=== PATIENT | male | born 1945 | race Caucasian/White ===

== ENCOUNTER 2020-02-15 00:35 | Outpatient (CLI) | payer MEDICARE, SELFPAY ==
[2020-02-15 18:10] LABS: SARS-CoV-2 RNA PCR Negative
== END 2020-02-15 00:36 | disposition home or self-care (01) ==
LOC: ANHCOVIDDT 00:35
PROVIDERS: PCP Family Medicine; Visit Provider Podiatrist Foot & Ankle Surgery
DX: Z01.812 Encounter for preprocedural laboratory examination (principal); Z20.828 Contact with and (suspected) exposure to other viral communicable diseases
CPT/HCPCS: 87635; C9803; U0003

== ENCOUNTER 2020-02-15 10:26 | Outpatient (CLI) | payer MEDICARE, SELFPAY ==
--- NOTE | 2020-02-15 10:28 | ECG_ITS ---
Measurements Intervals [place] Rate: 64 P: 76 [place]: 170 QRS: -53 QRSD: 129 T: 46 QT: 401 QTc: 414 Interpretive Statements SINUS RHYTHM POSSIBLE LEFT ATRIAL ENLARGEMENT LEFT ANTERIOR FASCICULAR BLOCK CANNOT RULE OUT SEPTAL INFARCT, AGE INDETERMINATE BASELINE ARTIFACT- I, II, III, AVR, AVL, AVF ABNORMAL ECG Electronically Signed On 02-15-2020 11:30:43 CDT by Kyler Levy D.O.
== END 2020-02-15 10:27 | disposition home or self-care (01) ==
LOC: ANHSURGERY 10:28
PROVIDERS: PCP Family Medicine; Visit Provider Podiatrist Foot & Ankle Surgery
DX: I10 Essential (primary) hypertension (principal)
CPT/HCPCS: 87635; 93005; C9803; U0003

== ENCOUNTER 2020-02-17 02:47 | Day surgery (SDC) | payer MEDICARE, SELFPAY ==
[2020-02-14 10:01] VITALS: BMI 19.3
--- NOTE | 2020-02-16 12:19 | WPDANESEPP ---
[facility] - Eval Pre Procedure Procedure: Operation Date: 02/17/20 09:00 Proposed Procedures p Fusion First Metatarsophalangeal Joint Right Foot, Hammer Toe Repair Second and Third Digits Right Foot, Plantar Plate Repair Second Metatarsophalangeal Joint Right Foot, - Twin José JR, MD s Osteotomy Second and Third Metatarsal Right Foot - Twin José JR, MD Date/Time: 02/16/20 12:19 Pre Op Diagnosis: bunion rt foot,hammer toe rt foot,metatarsalgia Patient Data Age: 74 Gender: M Height: 1.91 m Weight: 70.31 kg Allergies Allergy/AdvReac Type Severity Reaction Status Date / Time No Known Allergies Allergy Verified 02/14/20 09:33 Home Medications Medication Instructions Recorded Confirmed Type propranolol 20 mg tablet 20 mg PO Q12H 07/08/19 02/14/20 History quetiapine 100 mg tablet 100 mg PO HS 07/08/19 02/14/20 History venlafaxine 150 mg tablet,extended 150 mg PO DAILY 07/08/19 02/14/20 History release 24 hr levothyroxine 50 mcg tablet 50 mcg PO DAILY #90 tablet 09/20/19 02/14/20 Rx atorvastatin 10 mg tablet 10 mg PO DAILY #90 tablet 11/21/19 02/14/20 Rx amantadine HCl 100 mg PO BID 02/14/20 02/14/20 History carbidopa-levodopa 1 tablet PO QID 02/14/20 02/14/20 History Patient hx anesthesia problems: none Family hx anesthesia problems: none PMFSH Past Medical History Medical History (Updated 02/16/20 @ 12:21 by Roshan Humphrey CRNA) Anemia Anxiety Arthritis Chronic neck pain Colonic polyp Epistaxis HTN (hypertension) Hyperlipidemia, unspecified Hypothyroidism, unspecified IFG (impaired fasting glucose) Parkinson's disease Rosacea Surgical History Surgical History (Updated 02/16/20 @ 12:21 by Roshan Humphrey CRNA) History of penile implant Status post hernia repair Family History Family History Father Family history of coronary artery disease Mother Family history of coronary artery disease Sibling Family history of coronary artery disease Social History Social History Smoking status: Never smoker Second hand tobacco smoke exposure: No Alcohol intake: never Substance use: never Substance use type: does not use Gender identity (if verbalized by the patient): Male Exam Day of Procedure 02/16/20 12:19
[2020-02-17] VITALS (11 sets, daily range): BP systolic 104–131; BP diastolic 61–79; PULSE 59–71; RESP 13–20; TEMP 36.3–36.6; O2SAT 100
--- NOTE | ~2020-02-17 | XR_ITS ---
EXAMINATION: XR surgery orthopedic DATE: 02/17/2020 10:46 INDICATION: Right foot surgery TECHNIQUE: Dorsal plantar and lateral fluoroscopic spot images of the right forefoot were obtained du ring procedure performed by Dr. José. Radiologist was not present for the imaging or procedure. T he amount of fluoroscopy time used during this procedure was 0.2 minutes. COMPARISON: None. FINDINGS: Osteotomies with screw fixation at the necks of the second and third metatarsals. Osteotomies and ins trumented arthrodeses at the second and third proximal interphalangeal joints. There are some surroun ding soft tissue gas suggesting recent surgery. Chronic appearing solidly fused arthrodesis at the fi rst metatarsophalangeal joint with dorsal plate and screw fixation. Alignment appears near-anatomic. No fractures identified. IMPRESSION: 1. Fluoroscopy utilized during orthopedic procedure at the right forefoot. See procedure note for fur ther detail. Reviewed, dictated and finalized at location A. IMPRESSION: 1. Fluoroscopy utilized during orthopedic procedure at the right forefoot. See procedure note for further detail.
--- NOTE | 2020-02-17 07:15 | WPDHPUPDATE1 ---
History and Physical Update Update Date/Time: 02/17/20 07:15 History and Physical has been reviewed, including an updated exam of the patient. There are NO changes in the patient's condition. Risks, benefits, and alternatives have been discussed and questions answered. Patient agrees to proceed with procedure.
[2020-02-17] MEDS: LACTATED RINGERS 1,000 ML 30 ML IV CONT ×2 (07:35→11:33)
--- NOTE | 2020-02-17 07:47 | WPDANESEPPF ---
Anes - Initial Pre Proc Eval Procedure: Operation Date: 02/17/20 09:00 Proposed Procedures p Fusion First Metatarsophalangeal Joint Right Foot, Hammer Toe Repair Second and Third Digits Right Foot, Plantar Plate Repair Second Metatarsophalangeal Joint Right Foot, - Twin José JR, MD s Osteotomy Second and Third Metatarsal Right Foot - Twin José JR, MD Date/Time: 02/17/20 07:47 Surgeon: Twin José JR, MD Pre Op Diagnosis: bunion rt foot,hammer toe rt foot,metatarsalgia Patient Data Age: 74 Gender: M Height: 1.91 m Weight: 70.31 kg Allergies Allergy/AdvReac Type Severity Reaction Status Date / Time No Known Allergies Allergy Verified 02/14/20 09:33 Home Medications Medication Instructions Recorded Confirmed Type propranolol 20 mg tablet 20 mg PO Q12H 07/08/19 02/14/20 History quetiapine 100 mg tablet 100 mg PO HS 07/08/19 02/14/20 History venlafaxine 150 mg tablet,extended 150 mg PO DAILY 07/08/19 02/14/20 History release 24 hr levothyroxine 50 mcg tablet 50 mcg PO DAILY #90 tablet 09/20/19 02/14/20 Rx atorvastatin 10 mg tablet 10 mg PO DAILY #90 tablet 11/21/19 02/14/20 Rx amantadine HCl 100 mg PO BID 02/14/20 02/14/20 History carbidopa-levodopa 1 tablet PO QID 02/14/20 02/14/20 History Patient hx anesthesia problems: none Family hx anesthesia problems: none PMFSH Past Medical History Medical History (Updated 02/16/20 @ 12:21 by Roshan Humphrey CRNA) Anemia Anxiety Arthritis Chronic neck pain Colonic polyp Epistaxis HTN (hypertension) Hyperlipidemia, unspecified Hypothyroidism, unspecified IFG (impaired fasting glucose) Parkinson's disease Rosacea Surgical History Surgical History (Updated 02/16/20 @ 12:21 by Roshan Humphrey CRNA) History of penile implant Status post hernia repair Family History Family History Father Family history of coronary artery disease Mother Family history of coronary artery disease Sibling Family history of coronary artery disease Social History Social History Smoking status: Never smoker Second hand tobacco smoke exposure: No Alcohol intake: never Substance use: never Substance use type: does not use Gender identity (if verbalized by the patient): Male Anes - Eval Final PreProcedure Day of Procedure 02/17/20 07:47 Patient weight: thin Heart: regular rate and rhythm Lungs: clear to auscultation and normal air movement Airway: Mallampati scale class II Neurological: alert and oriented Last oral intake: >/= 8 hours ASA classification: III Emergent: no Anesthetic plan: proceed Anesthesia type and monitoring: general LMA and standard monitoring Other findings: popliteal nerve block/acb for post op pain Informed Consent: The patient's anesthetic plan and its attendant risks and benefits were discussed with the patient/family/POA. Questions were solicited and answers provided to the satisfaction of the patient/family/POA.
--- NOTE | 2020-02-17 07:50 | WPDANESPNB ---
Anes - Peripheral Nerve Block Date/Time: 02/17/20 07:50 I have discussed with the patient/family/POA the placement of a peripheral nerve block for post-operative pain management, including associated risks, benefits, complications, and side effects. Alternative methods of post-operative analgesia were detailed. Questions were solicited and answers provided to the satisfaction of the patient/family/POA. Time-Out: A pre-procedural Time-Out was completed immediately before starting the procedure and confirmed: Patient Identification, Site, Procedure, Patient Position and the Availability of Requisite Equipment. Clinical Indications: Acute post-operative pain management requested by the operative surgeon. Nerve Block Insertion Note Anes-nerve block: posterior fossa sciatic right and adductor canal right Patient position: supine (for adductor canal) and other (right lateral for popliteal) Skin prep: chlorhexidine Needle: 22 gauge, stimulating, insulated echogenic needle. Needle length: 80 mm Technique: nerve stimulation lost at (mA) (for popliteal lost at 0.2) and ultrasound Injectate: bupivacaine 0.5% with epi 5 mcg/ml (20 mL for popliteal, 10 mL for adductor canal) Observations: tolerated well Complications: none Procedure start time:: 829 Procedure end time:: 836
[2020-02-17] MEDS: ceFAZolin 2 GM/D5W 50 ML 2 GM/50 ML BAG IVPB (08:39)
--- NOTE | 2020-02-17 11:15 | PM.OP ---
Procedure Note - Brief Procedure Note - Brief Date of procedure: 02/17/20 Pre-op diagnosis: bunion rt foot,hammer toe rt foot,metatarsalgia Post-op diagnosis: same Procedure performed: 1. Fusion first MPJ right foot 2. Hammertoe repair 2nd and 3rd digit right foot 3. Duy Shortening 2nd and 3rd metatarsal osteotomy right foot Anesthesia: GLMA Surgeon: Twin José JR, DPM Estimated blood loss (mL): 1 Complications: No immediate complications Condition: stable Disposition: same day
--- NOTE | 2020-02-17 12:20 | SUR.PHASEI ---
1155 dr smith at bedside to change dressing due to being to tight around rt foot/lower leg. rt toes dusky in color, cap refill >[address] smith has pt dangling rt foot off the side of stretcher to increase blood flow to foot. rt foot redressed partially by dr smith, karly hugger and warm blanket appplied to rt lower leg. [address] smith pt is in chair sitting up with legs dangling to floor, vss, no pain in rt leg. 1225 pt has good cap refill in toes now, still no feeling in rt foot/toes.
--- NOTE | 2020-02-17 12:36 | SUR.PHASEI ---
6780 updated spouse on pt condition, will call her when pt is ready for discharge
--- NOTE | 2020-02-17 12:51 | SUR.PHASEI ---
Addendum entered by Karis Easton RN 02/17/20 12:55: LESVIA [place] IS LOOSELY WRAPPED AROUND RT LEG/FOOT PER DR CONSUELO MONCADA Original Note: 1244; CARE ASSUMED OF PT. PT SITTING IN RECLINER WITH BOTH LEGS DEPENDENT PER DR CORDERO INSTRUCTIONS. RT 3RD TOE IS WELCH/PURPLE. NO MOVEMENT TO FOOT. FOOT AND TOES ARE WARM. CAP REFILL IS SLOW BUT PRESENT.
--- NOTE | 2020-02-17 13:11 | SUR.PHASEI ---
1300; DR CORDERO AT BEDSIDE. PT REMAINS IN RECLINER WITH BILAT LEGS DEPENDENT. LESVIA HUGGER ON AROUND RT FOOT/LEG. CAP REFILL SLOW BUT PRESENT. RT 3RD TOE REMAINS DUSKY/PURPLE. DR CORDERO STATES PT MAY GO HOME. NO ICE AND NO ELEVATION.
--- NOTE | 2020-02-17 16:43 | OP_ITS ---
DATE OF PROCEDURE: 02/17/2020 PREOPERATIVE DIAGNOSES: 1. Recurrent hallux valgus deformity, right foot. 2. Metatarsalgia, sub 2nd and 3rd metatarsophalangeal joints, right foot with pre-ulcerative lesions. 3. Painful hammertoe deformity, 2nd and 3rd digits, right foot. 4. Predislocation syndrome, 2nd metatarsophalangeal joint, right foot. POSTOPERATIVE DIAGNOSES: 1. Recurrent hallux valgus deformity, right foot. 2. Metatarsalgia sub 2nd and 3rd metatarsophalangeal joints, right foot with pre-ulcerative lesions. 3. Painful hammertoe deformity, 2nd and 3rd digits, right foot. 4. Predislocation syndrome, 2nd metatarsophalangeal joint, right foot. PROCEDURE: 1. Fusion of the 1st metatarsophalangeal joint of the right foot. 2. Hammertoe repairs, 2nd and 3rd digits, right foot with arthrodesis of the proximal interphalangeal joint of the affected digits. 3. Duy shortening, 2nd and 3rd metatarsal osteotomies, right foot. PATHOLOGY: None. ANESTHESIA: General with a popliteal fossa block. HEMOSTASIS: Pneumatic ankle tourniquet at 250 mmHg. ESTIMATED BLOOD LOSS: Minimal. MATERIALS USED: 1. [employer] 1st metatarsophalangeal joint Crosscheck plate. 2. Three 3.0 mm Arthrex partially-threaded cannulated screws. 3. [employer] Phalinx hammertoe implants, medium and small sizes used, 3-0 PDS, 3-0 Vicryl, 4-0 Vicryl, 4-0 Monocryl, and 4-0 Prolene. INJECTABLES: None. COMPLICATIONS: Third digit of the right foot had postoperative pallor followed by duskiness. PROCEDURE IN DETAIL: Under mild sedation, the patient was brought into the operating room, placed on the operating room table in the supine position. A pneumatic ankle tourniquet was placed about the patient's right foot. Following general anesthesia and a previous popliteal fossa block, the right foot was then scrubbed, prepped, and draped in the usual aseptic manner. An Esmarch bandage was then used to examine the patient's right foot and the pneumatic ankle tourniquet was inflated. Surgery began in the following manner. Attention was directed to the dorsum of the 1st metatarsophalangeal joint at the roof of the right foot. Incision was made overlying an old cicatrix present. The incision was continued deep down through the subcutaneous tissues using sharp and blunt dissection. All bleeders were ligated and cauterized as necessary. There was significant fibrosis across the entire 1st metatarsophalangeal joint with the rigid hallux valgus deformity present. A lateral release was performed by dissecting down laterally over the 1st metatarsophalangeal joint. The tendon of the adductor hallucis was released utilizing a blunt tenotomy scissor. Furthermore, the lateral capsule was also transected in order to provide laxity to the lateral aspect of the 1st metatarsophalangeal joint. At this point, a periosteal incision was made over the base of the proximal phalanx and 1st metatarsal. The periosteum and capsular structures were then freed of their osseous attachments thus exposing the base of the proximal phalanx and the head of the 1st metatarsal. There was significant contracture present to the joint. The decision was to make 2 flat cuts to decompress the joint resecting a small portion of the base of the proximal phalanx as well as the distal aspect of the head of the 1st metatarsal. The osteotomies were created in order to slightly plantar flex the hallux in order to be adequately purchasing around. Once the flat cuts were made, there was excellent apposition of the base of the proximal phalanx against the resected head of the 1st metatarsal. Rectus alignment of the digit was noted in all planes. Temporary fixation was maintained with a 0.062 inch K-wire. A 2.0 mm drill bit was used to fenestrate the b
== END 2020-02-17 14:20 | disposition home or self-care (01) ==
PROVIDERS: PCP Family Medicine; Visit Provider Podiatrist Foot & Ankle Surgery
PROC: (CPT 28750; principal; 2020-02-17 09:00)
PROC: (CPT 28750; 2020-02-17 09:00)
DX: M20.11 Hallux valgus (acquired), right foot (principal); M77.41 Metatarsalgia, right foot; M20.41 Other hammer toe(s) (acquired), right foot; M24.474 Recurrent dislocation, right foot; G89.18 Other acute postprocedural pain; I10 Essential (primary) hypertension; E78.5 Hyperlipidemia, unspecified; G20 Parkinson's disease; D64.9 Anemia, unspecified; E03.9 Hypothyroidism, unspecified
CPT/HCPCS: 28750; 28285 ×2; 28308 ×2; 64447; 64445; A9270; C1713; J0690; J2250; J2370; J2405; J2704; J3010; J7120

== ENCOUNTER 2020-03-06 11:41 | Inpatient (IN) | payer MEDICARE, SELFPAY ==
--- NOTE | ~2020-03-06 | XR_ITS ---
EXAMINATION: XR foot RT 2V DATE: 03/06/2020 14:17 INDICATION: Right foot cellulitis. Postop. TECHNIQUE: 2 views of right foot were obtained. COMPARISON: Right foot fluoroscopy 02/17/2020 FINDINGS: Bone alignment is normal. No acute fracture. There are changes of healed arthrodesis proced ure of first metatarsophalangeal joint with dorsal plate and screws. There is screw fixation of the n ecks of the second and third metatarsals. There is resection of the head of the second proximal phala nx. There are changes of arthrodesis procedures of the second and third proximal interphalangeal join ts with screws. The screw has partially pulled out of the second proximal phalanx. Again seen is wide lopez of second metatarsophalangeal joint. There are enthesophytes at the posterior plantar aspects of calcaneal tuberosity. IMPRESSION: 1. Arthrodesis procedure of second proximal interphalangeal joint with interval change in the screw p osition in second proximal phalanx, consistent with loosening. 2. Arthrodesis procedures of first metatarsophalangeal joint and third proximal interphalangeal joint . Reviewed, dictated and finalized at location A. IMPRESSION: 1. Arthrodesis procedure of second proximal interphalangeal joint with interval change in the screw position in second proximal phalanx, consistent with loose lopez. 2. Arthrodesis procedures of first metatarsophalangeal joint and third proximal interphalangeal joint.
--- NOTE | ~2020-03-06 | US_ITS ---
EXAMINATION: US venous doppler [facility] DATE: 03/06/2020 14:16 INDICATION: Right lower limb erythema. TECHNIQUE: Grayscale ultrasound images without and with compression and Doppler ultrasound images of the bilateral lower extremity veins were obtained. COMPARISON: Ultrasound 11/04/2013 FINDINGS: The visualized portions of right common femoral vein, profunda (deep) femoral vein, femoral vein, pop liteal vein, peroneal veins, posterior tibial veins, and greater saphenous vein outflow are patent. The visualized portions of left common femoral vein, profunda femoral vein, femoral vein, popliteal v ein, peroneal veins, posterior tibial veins, and greater saphenous vein outflow are patent. IMPRESSION: 1. No deep venous thrombosis. Reviewed, dictated and finalized at location A.
--- NOTE | 2020-03-06 13:00 | ADMGEN ---
This patient, Yosvany Donovan, was admitted to Medical Room 261-01. Patient/family oriented to hospital policies and general routines including ID bracelet, bed and alarms, visiting hours, pain management, procedures, bathroom and other care routines, personal items, smoking policy, room service/diet, and visiting hours. Valuables list has been completed. Information on how to activate the Rapid Response Team has been discussed. Patient/Family are encouraged to report perceived risks to care and to ask questions if they do not understand what they are told or what they should do.
--- NOTE | 2020-03-06 13:10 | PM.IMHP ---
H&P: HPI History of Present Illness Chief complaint: Cellulitis Rt Foot Narrative: Yosvany Donovan is a 75 year old male who was a direct admit from Dr. Monk office for infection to the right foot. The patient did have a dressing on the right foot and took off the dressing. The patient stated that he had his sutures removed today. The patient stated that he has been on 2 different antibiotics for approximately 1 week and he believes 1 antibiotic was doxycycline. 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 The patient had a procedure on 02/17/2020 he had fusion of the 1st metatarsophalangeal joint of the right foot. Hammertoe repair 2nd and 3rd digits right foot with arthrodesis of the proximal interphalangeal joints of the affected digits. Well shortening 2nd and 3rd metatarsals osteomies right foot. The patient denies any fever or chills. He has a edema to his right lower extremity with redness around an area the mid white that is a quarter-sized area and looks like it scab. The patient has redness medial and laterally up the right leg care home and cover so whole right foot. Patient has scabbed area on his toes. He had redness edema but has tenderness. No drainage is noted. Patient stated he has been taking his medication as directed. The patient also stated that he had a cast on the right foot and the redness had shown up around the area where the cast had been placed. Date of service is 03/06/2020 Review of Systems Review of Systems: All systems reviewed & are unremarkable except as noted in HPI and below Constitutional: Constitutional: Reports as per HPI and Reports no additional constitutional complaints Eyes: Eyes: Reports as per HPI and Reports no additional eye complaints ENT: Reports system reviewed and no additional complaints, except as documented and Reports Normal hearing present Cardiovascular: Cardiovascular: Reports no additional cardiovascular complaints Respiratory: Respiratory: Reports no additional respiratory complaints and Reports no additional respiratory complaints Gastrointestinal: Gastrointestinal: Reports as per HPI and Reports no additional gastrointestinal complaints Musculoskeletal: Musculoskeletal: Reports no additional musculoskeletal complaints Integumentary/Breasts: Skin/Breast: Reports system reviewed and no additional complaints, except as docu and Reports as per HPI Neurologic: Reports system reviewed and no additional complaints, except as documented, Reports as per HPI and Reports Normal hearing present Psychiatric: Psychiatric: Reports no additional psychiatric complaints and Reports as per HPI Endocrine: Endocrine: Reports no additional endocrine complaints Hematologic/Lymphatic: Hematologic/Lymphatic: Reports no additional hematologic/lymphatic complaints Allergic/Immunologic: Allergic/Immunologic: Reports no additional allergic/immunologic complaints [facility] Past Medical History Medical History (Updated 03/06/20 @ 13:41 by Josselyn Viramontes NP) Anemia Anxiety Arthritis Chronic neck pain Colonic polyp Depression Epistaxis Hard of hearing HTN (hypertension) Hyperlipidemia, unspecified Hypothyroidism, unspecified IFG (impaired fasting glucose) Parkinson's disease Rosacea Surgical History Surgical History (Updated 03/06/20 @ 13:29 by Josselyn Viramontes NP) Cataract extraction status With lens implants H/O foot surgery 02/17/2020 and then about 8 years ago he had surgery on that right foot History of penile implant Status post hernia repair Family History Family History Father Family history of coronary artery disease Mother Family history of coronary artery disease Sibling Family history of coronary artery disease Social History Social History (Updated 03/06/20 @ 13:33 by Josselyn Viramontes NP) Social History: 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
[2020-03-06 14:05] LABS: Basophils Absolute Auto 0.1 K/mm3 (0.0-0.1); Basophils Percent Auto 0.9 % (0.2-1.2); Eosinophils Absolute Auto 0.6 K/mm3 (0-0.3); Eosinophils Percent Auto 9.5 % (0-4.4); Hematocrit 37.9 % (42.0-52.0); Hemoglobin 12.5 g/dL (14.0-18.0); Immature Granulocyte Absolute 0.03 K/mm3 (0.00-0.031); Immature Granulocyte Percent A 0.5 % (0-0.5); Lymphocytes Absolute Auto 1.24 K/mm3 (0.9-3.2); Lymphocytes Percent Auto 18.7 % (18.3-44.2); Mean Corpuscular Hemoglobin 31.4 pg (26-34); Mean Corpuscular Volume 95.2 fl (80-100); Mean Platelet Volume 9.3 fl (7.4-10.4); Monocytes Absolute Auto 0.8 K/mm3 (0.1-0.6); Monocytes Percent Auto 11.9 % (2.6-8.5); Neutrophils Absolute Auto 3.9 K/mm3 (1.3-6.7); Neutrophils Percent Auto 58.5 % (45.5-73.1); Platelet Count Result 305 k/mm3 (150-375); Red Blood Count 3.98 M/mm3 (4.6-6.20); Red Cell Distribution Width 12.4 % (11.5-14.5); White Blood Count 6.6 K/mm3 (4.5-10.0)
[2020-03-06 14:11] LABS: Lactic Acid Reflex 1.1 mmol/L (0.7-2.1)
[2020-03-06 14:12] LABS: Blood Urea Nitrogen 26 mg/dL (9-20); Calcium 9.4 mg/dL (8.4-10.2); Carbon Dioxide 31 mmol/L (22-30); Chloride 102 mmol/L (98-107); Estimated Glomerular Filt Rate > 60; Glucose 87 mg/dL (75-110); Potassium 4.4 mmol/L (3.4-5.0); Sodium 140 mmol/L (137-145)
[2020-03-06 14:26] VITALS: BP 103/59; PULSE 62; RESP 16; TEMP 36.6; O2SAT 100
[2020-03-06 14:27] VITALS: BMI 19.4
[2020-03-06 15:09] LABS: Free T4 Free Thyroxine 0.92 ng/mL (0.78-2.19)
[2020-03-06 18:00] VITALS: BP 112/51; PULSE 70; RESP 18; TEMP 36.9; O2SAT 100
[2020-03-06 20:00] VITALS: BP 120/57; PULSE 70; RESP 20; TEMP 36.8; O2SAT 99
[2020-03-06 20:58] VITALS: PULSE 66
[2020-03-06] MEDS: PROPRANOLOL HCL 20 MG TABLET PO (20:58)
[2020-03-06] MEDS: amantadine HCL 100 MG CAPSULE PO (20:58)
[2020-03-06] MEDS: CARBIDOPA/LEVODOPA 25/100 MG CR TABLET 1 TABLET PO ×2 (20:58→23:57)
[2020-03-06] MEDS: QUEtiapine FUMARATE 100 MG TABLET PO (20:58)
[2020-03-06 21:41] LABS: Add Urine Microscopic? NO; Appearance Urine Clear (Clear); Bilirubin Urine Negative (Negative); Blood Urine Negative (Negative); Color Urine Yellow (Yellow); Glucose Urine UA Negative (Negative); Ketones Urine Negative (Negative); Leukocyte Esterase Ur Negative LEU/UL (Negative); Nitrate Urine Negative (Negative); Protein Urine Negative (Negative); Urobilinogen Urine Negative mg/dL (<2.0)
[2020-03-07] VITALS (8 sets, daily range): BP systolic 104–119; BP diastolic 59–75; PULSE 60–75; RESP 16–18; TEMP 36.6–37.1; O2SAT 92–100
[2020-03-07] MEDS: CARBIDOPA/LEVODOPA 25/100 MG CR TABLET 1 TABLET PO ×7 (03:02→19:54)
[2020-03-07 05:42] LABS: Basophils Absolute Auto 0.1 K/mm3 (0.0-0.1); Basophils Percent Auto 1.2 % (0.2-1.2); Eosinophils Absolute Auto 0.6 K/mm3 (0-0.3); Eosinophils Percent Auto 9.7 % (0-4.4); Hemoglobin 11.5 g/dL (14.0-18.0); Immature Granulocyte Absolute 0.02 K/mm3 (0.00-0.031); Immature Granulocyte Percent A 0.3 % (0-0.5); Lymphocytes Absolute Auto 1.32 K/mm3 (0.9-3.2); Lymphocytes Percent Auto 22.8 % (18.3-44.2); Mean Corpuscular HGB Conc 32.9 g/dl (32-36); Mean Corpuscular Hemoglobin 30.9 pg (26-34); Mean Corpuscular Volume 94.1 fl (80-100); Mean Platelet Volume 9.1 fl (7.4-10.4); Monocytes Absolute Auto 0.8 K/mm3 (0.1-0.6); Platelet Count Result 272 k/mm3 (150-375); Red Blood Count 3.72 M/mm3 (4.6-6.20); Red Cell Distribution Width 12.2 % (11.5-14.5); White Blood Count 5.8 K/mm3 (4.5-10.0)
[2020-03-07 05:57] LABS: Lactic Acid 1.1 mmol/L (0.7-2.1)
[2020-03-07 05:58] LABS: Alanine Aminotransferase 6 U/L (4-50); Albumin Level 3.8 g/dL (3.5-5.1); Alkaline Phosphatase 93 U/L (38-126); Aspartate Amino Transferase 24 U/L (17-59); Bilirubin,Total 0.3 mg/dL (0.2-1.3); Blood Urea Nitrogen 21 mg/dL (9-20); CRP 0.8 mg/dL (<1.0); Carbon Dioxide 32 mmol/L (22-30); Chloride 102 mmol/L (98-107); Estimated CRCL calculation 62 ml/min; Estimated Glomerular Filt Rate > 60; Glucose 93 mg/dL (75-110); Magnesium 2.1 mg/dL (1.6-2.3); Potassium 4.4 mmol/L (3.4-5.0); Sodium 138 mmol/L (137-145)
[2020-03-07] MEDS: LEVOTHYROXINE SODIUM 50 MCG TABLET PO (06:04)
[2020-03-07 07:48] LABS: Free T4 Free Thyroxine Reflex 0.89 ng/dL (0.78-2.19)
[2020-03-07] MEDS: ENOXAPARIN 40 MG/0.4 ML SYRINGE SUB-Q (08:24)
[2020-03-07] MEDS: amantadine HCL 100 MG CAPSULE PO ×2 (08:24→19:55)
[2020-03-07] MEDS: VENLAFAXINE HCL XR 75 MG CAP.ER.24H 150 MG PO (08:24)
[2020-03-07] MEDS: ATORVASTATIN 10 MG TABLET PO (08:24)
[2020-03-07] MEDS: PROPRANOLOL HCL 20 MG TABLET PO ×2 (08:24→19:54)
[2020-03-07 09:10] LABS: Total Triiodothyronine (T3) 1.04 NG/ML (0.97-1.69)
--- NOTE | 2020-03-07 09:24 | PM.IMHP ---
H&P: HPI History of Present Illness Chief complaint: Cellulitis Rt Foot Narrative: Yosvany Donovan is a 75 year old male with Parkinson's he had a recent forefoot reconstruction, he was 3 weeks into his 4 week cast immobilization recovery when he called the office because of pain and swelling to the right foot. I removed the cast and noticed that the patient accidentally wet the cast which led to maceration and subsequent infection of the macerated incision sites. No F/C/N/V, no SOB no calf pain. He was admited for IV antibiotics. Review of Systems Constitutional: Constitutional: Reports no additional constitutional complaints [facility] Past Medical History Medical History (Updated 03/06/20 @ 13:41 by Josselyn Viramontes NP) Anemia Anxiety Arthritis Chronic neck pain Colonic polyp Depression Epistaxis Hard of hearing HTN (hypertension) Hyperlipidemia, unspecified Hypothyroidism, unspecified IFG (impaired fasting glucose) Parkinson's disease Rosacea Surgical History Surgical History (Updated 03/06/20 @ 13:29 by Josselyn Viramontes NP) Cataract extraction status With lens implants H/O foot surgery 02/17/2020 and then about 8 years ago he had surgery on that right foot History of penile implant Status post hernia repair Family History Family History Father Family history of coronary artery disease Mother Family history of coronary artery disease Sibling Family history of coronary artery disease Social History Social History (Updated 03/06/20 @ 13:33 by Josselyn Viramontes NP) Social History: 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 He lives with his Olinda who is his durable power immigration attorney for healthcare. He desires to be a full code. They have no biological children but adopted 9 foster children. They had over 30 some foster children throughout their life. Patient desires to be a full code. He does not drink or smoke or use marijuana or drugs. Smoking status: Never smoker Second hand tobacco smoke exposure: No Alcohol intake: never Substance use: never Substance use type: does not use Gender identity (if verbalized by the patient): Male Spiritual care concerns: No Meds Home Medications and Allergies Home Medications Medication Instructions Recorded Confirmed Type propranolol 20 mg tablet 20 mg PO BID 07/08/19 03/06/20 History quetiapine 100 mg tablet 100 mg PO HS 07/08/19 03/06/20 History venlafaxine 150 mg tablet,extended 150 mg PO DAILY 07/08/19 03/06/20 History release 24 hr levothyroxine 50 mcg tablet 50 mcg PO DAILY #90 tablet 09/20/19 03/06/20 Rx atorvastatin 10 mg tablet 10 mg PO DAILY #90 tablet 11/21/19 03/06/20 Rx amantadine HCl 100 mg PO BID 02/14/20 03/06/20 History carbidopa-levodopa 1 tablet PO Q3H 02/14/20 03/06/20 History ciprofloxacin HCl 500 mg PO Q12H 03/06/20 03/06/20 History clindamycin HCl 300 mg PO Q8H 03/06/20 03/06/20 History Allergies Allergy/AdvReac Type Severity Reaction Status Date / Time No Known Allergies Allergy Verified 02/14/20 09:33 Vital Signs Vital Signs - 24 hr 03/06/20 14:26 03/06/20 18:00 03/06/20 20:00 Temperature 36.6 C 36.9 C 36.8 C Pulse Rate 62 70 70 Respiratory Rate 16 18 20 Blood Pressure 103/59 L 112/51 L 120/57 L Pulse Oximetry 100 100 99 03/06/20 20:58 03/07/20 00:00 03/07/20 04:00 Temperature 36.8 C 36.6 C Pulse Rate 66 75 64 Respiratory Rate 18 18 Blood Pressure 119/62 104/59 L Pulse Oximetry 100 100 03/07/20 08:24 Temperature Pulse Rate 64 Respiratory Rate Blood Pressure Pulse Oximetry Exam Extrem: Other: Partial thickness loss of skin to the incision sites overlying the 2nd and 3rd digits. Significant improvement as far as the erythema the was present and extending to the ankle, now limited to the surgical sites 2nd and 3rd digits. H&P: Results Labs Labs: Short CBC 03/06/20 03/07/20 Range/Units 13:41 05:21 WBC 6.6
--- NOTE | 2020-03-07 15:54 | PM.IMPN ---
Progress Note: A&P Assessment and Plan (1) Cellulitis of foot: Code(s): L03.119 - Cellulitis of unspecified part of limb Status: Acute Assessment and Plan: Patient recently had surgery on 02/17/[address] José Podiatry. After the patient's cast was removed there was moist her found in his boot and he has been on oral antibiotics as an outpatient. Patient's symptoms of redness, swelling, pain continued to become worse and he was sent here from Dr. José office for further evaluation and IV antibiotics. Patient reports improvement of the swelling and redness today Dr. José who believe the patient's foot in. To be much improved. Blood cultures and wound cultures are pending. Venous Doppler was negative for acute DVT. Continue IV antibiotics. Continue monitoring the patient's symptoms. input is greatly appreciated. (2) Depression: Code(s): F32.9 - Major depressive disorder, single episode, unspecified Status: Chronic Assessment and Plan: Continue with patient's Effexor (3) Rosacea: Code(s): L71.9 - Rosacea, unspecified Status: Chronic Assessment and Plan: Continue with patient's home creams (4) Anemia: Code(s): D64.9 - Anemia, unspecified Status: Acute Assessment and Plan: Patient H&H has been stable since arrival. Continue to monitor. Transfuse as needed. (5) Anxiety: Code(s): F41.9 - Anxiety disorder, unspecified Status: Chronic Assessment and Plan: Continue with Effexor and Seroquel (6) Hypothyroidism, unspecified: Code(s): E03.9 - Hypothyroidism, unspecified Status: Chronic Assessment and Plan: TSH was slightly elevated at 5.520 but free T4 and T3 was normal. This is consistent with subclinical hypothyroidism. Will have him continue on his normal levothyroxine and follow-up with primary care provider for further evaluation and recheck in 6 weeks. (7) Parkinson's disease: Code(s): G20 - Parkinson's disease Status: Chronic Assessment and Plan: Continue with carbidopa levodopa and amantadine (8) Hyperlipidemia, unspecified: Code(s): E78.5 - Hyperlipidemia, unspecified Status: Chronic Assessment and Plan: Continue with atorvastatin Time Spent With Patient Time with patient: 25 - 35 minutes Subjective Date/time seen: 03/07/20 15:54 Interval history: Date of service 03/07/2020: Patient reports feeling better today. He states his leg swelling, redness, pain has improved. He denies any fevers, chills, chest pain, shortness of breath, weakness, fatigue, nausea, vomiting, abdominal pain, constipation, diarrhea, calf pain or any other symptoms at this time. Review of Systems Review of Systems: All systems reviewed & are unremarkable except as noted in HPI and below Exam Narrative: Exam Narrative: General: 75-year-old man sitting up in bed reading a book. Appears comfortable. In no acute distress. Skin: No jaundice or cyanosis. Good skin turgor. Neck: Full range of motion. Supple. Respiratory: Lungs are clear to auscultation bilaterally. No wheezing, rales or rhonchi. No bony chest wall tenderness. Cardiovascular: The heart has a regular rate and rhythm without murmur. Lower extremities: Left distal lower extremity has Hi wrap in place around left ankle and foot. Unable to examine his left foot and ankle secondary to bandage. He does have good capillary refill noted to all 5 toes. Sensation is intact to his toes. Trace distal right lower extremity ed
[2020-03-07] MEDS: QUEtiapine FUMARATE 100 MG TABLET PO (19:55)
[2020-03-08] MEDS: CARBIDOPA/LEVODOPA 25/100 MG CR TABLET 1 TABLET PO ×5 (00:43→12:20)
[2020-03-08 02:00] VITALS: BP 102/66; PULSE 65; RESP 16; TEMP 36.7; O2SAT 100
[2020-03-08 05:51] VITALS: BP 109/67; PULSE 67; RESP 16; TEMP 36.4; O2SAT 99
[2020-03-08 06:05] LABS: Hematocrit 37.1 % (42.0-52.0); Hemoglobin 12.3 g/dL (14.0-18.0); Mean Corpuscular HGB Conc 33.2 g/dl (32-36); Mean Corpuscular Hemoglobin 31.5 pg (26-34); Mean Corpuscular Volume 95.1 fl (80-100); Mean Platelet Volume 9.4 fl (7.4-10.4); Platelet Count Result 276 k/mm3 (150-375); Red Cell Distribution Width 12.3 % (11.5-14.5); White Blood Count 5.4 K/mm3 (4.5-10.0)
[2020-03-08] MEDS: LEVOTHYROXINE SODIUM 50 MCG TABLET PO (06:09)
[2020-03-08 06:21] LABS: Blood Urea Nitrogen 23 mg/dL (9-20); Calcium 9.4 mg/dL (8.4-10.2); Carbon Dioxide 33 mmol/L (22-30); Chloride 101 mmol/L (98-107); Estimated CRCL calculation 62 ml/min; Estimated Glomerular Filt Rate > 60; Glucose 92 mg/dL (75-110); Potassium 4.6 mmol/L (3.4-5.0); Sodium 138 mmol/L (137-145)
[2020-03-08] MEDS: ENOXAPARIN 40 MG/0.4 ML SYRINGE SUB-Q (08:48)
[2020-03-08 08:49] VITALS: PULSE 72
[2020-03-08] MEDS: PROPRANOLOL HCL 20 MG TABLET PO (08:49)
[2020-03-08] MEDS: ATORVASTATIN 10 MG TABLET PO (08:49)
[2020-03-08] MEDS: VENLAFAXINE HCL XR 75 MG CAP.ER.24H 150 MG PO (08:49)
[2020-03-08] MEDS: amantadine HCL 100 MG CAPSULE PO (08:49)
--- NOTE | 2020-03-08 09:17 | WPDPN ---
Progress Note: A&P Additional Plan Cellulitis right foot has fully resolved. Stable for discharge. Follow up in my office Thursday March 12, 2020. Continue with daily application of Betadine, adaptic and gauze roll and Hi Wrap. Use surgical shoe for ambulation with walker. Has prescription at home for Clindamycin and Cipro to be taken until finished. Thanks for hospitalist help with case, Dr. José Exam Extrem: Ankle/foot/toe images: 1. Superficial dehiscence noted to the dorsum of the forefoot, proximal to the 2nd digit 2. Superficial dehiscence noted to the dorsum of the forefoot, proximal to the 3rd digit. Other: Erythema and edema has fully resolved. Objective Data Vital Signs Vital Signs: Vital Signs - 24 hr 03/07/20 10:00 03/07/20 14:00 03/07/20 18:00 Temperature 36.8 C 36.9 C 36.8 C Pulse Rate 67 60 62 Respiratory Rate 16 16 16 Blood Pressure 105/59 L 112/67 112/62 Pulse Oximetry 100 100 96 03/07/20 19:54 03/07/20 22:00 03/08/20 02:00 Temperature 37.1 C 36.7 C Pulse Rate 60 71 65 Respiratory Rate 16 16 Blood Pressure 115/75 102/66 Pulse Oximetry 92 100 03/08/20 05:51 03/08/20 08:49 Temperature 36.4 C Pulse Rate 67 72 Respiratory Rate 16 Blood Pressure 109/67 Pulse Oximetry 99 Intake/Output Intake/Output: Intake & Output 03/05/20 03/06/20 03/07/20 03/08/20 23:59 23:59 23:59 23:59 Intake Total 440 1680 440 Output Total 200 1850 1250 Balance 240 -170 -810 Meds/Results Medications: Active Medications Generic Name Dose Route Start Last Admin Trade Name Freq PRN Reason Stop Dose Admin Hydrocodone Bitart/Acetaminophen 1 tab 03/07/20 10:23 [place] 7.5-325 Mg PO Q4H PRN Pain Rated 7-10 Hydrocodone Bitart/Acetaminophen 1 tab 03/07/20 10:23 03/07/20 10:57 [place] 5-325 Mg PO 1 tab Q4-6H PRN Administration Pain Rated 4-6 Amantadine HCl 100 mg 03/06/20 21:00 03/08/20 08:49 Symmetrel PO 100 mg Q12HR VERN Administration Atorvastatin Calcium 10 mg 03/07/20 09:00 03/08/20 08:49 Lipitor PO 10 mg DAILY VERN Administration Carbidopa/Levodopa 1 tablet 03/06/20 21:00 03/08/20 08:49 Sinemet Cr 25/100 Mg PO 1 tablet Q3HR VERN Administration Docusate Sodium 100 mg 03/07/20 15:56 Colace Capsule PO Q12H PRN Constipation Enoxaparin Sodium 40 mg 03/07/20 09:00 03/08/20 08:48 Lovenox SUB-Q 40 mg DAILY VERN Administration Cefazolin Sodium 1 gm in 50 mls @ 100 mls/hr 03/06/20 22:00 03/08/20 06:39 Ancef 1 Gm/D5w 50 Ml Pm IVPB Infused Q8H VERN Infusion Levothyroxine Sodium 50 mcg 03/07/20 06:30 03/08/20 06:09 Synthroid PO 50 mcg DAILY@0630 VERN Administration Ondansetron HCl 4 mg 03/06/20 13:06 Zofran Inj IV PUSH Q6H PRN Nausea And Vomiting Polyethylene Glycol 17 gm 03/07/20 15:56 Miralax PO QAM PRN Constipation Propranolol HCl 20 mg 03/06/20 21:00 03/08/20 08:49 Inderal PO 20 mg Q12HR VERN Administration Quetiapine Fumarate 100 mg 03/06/20 21:00 03/07/20 19:55 Seroquel PO 100 mg HS VERN Administration Venlafaxine HCl 150 mg 03/07/20 09:00 03/08/20 08:49 Effexor Xr PO 150 mg DAILY VERN Administration Radiology Results: ITS Impressions Venous Doppler Study 03/06/20 14:17 IMPRESSION: 1. No deep venous thrombosis. Foot X-Ray 03/06/20 14:18 IMPRESSION: 1. Arthrodesis procedure of second proximal interphalangeal joint with interval change in the screw position in second proximal phalanx, consistent with loosening. 2. Arthrodesis procedures of first metatarsophalangeal joint and third proximal interphalangeal joint. Labs Labs: Laboratory Results - last 24 hr 03/08/20 03/08/20 05:39 05:39 WBC 5.4 RBC 3.90 L Hgb 12.3 L Hct 37.1 L MCV 95.1 MCH 31.5 MCHC 33.2 RDW 12.3 Plt Count 276 MPV 9.4 Sodium 138 Potassium 4.6 Chloride 101 Carbon Dioxide 33 H B
[2020-03-08 10:00] VITALS: BP 99/53; PULSE 68; RESP 16; TEMP 36.7; O2SAT 99
--- NOTE | 2020-03-08 10:29 | PM.DS ---
DS: Admitting Diagnosis Admitting Diagnosis Admitting Diagnosis: Cellulitis of unspecified part of limb DS: Discharge Diagnosis Discharge Diagnosis (1) Cellulitis of foot: Code(s): L03.119 - Cellulitis of unspecified part of limb Status: Acute Assessment and Plan: Patient recently had surgery on 02/17/[address] José Podiatry. After the patient's cast was removed there was moist her found in his boot and he has been on oral antibiotics as an outpatient. Patient's symptoms of redness, swelling, pain continued to become worse and he was sent here from Dr. José office for further evaluation and IV antibiotics. Patient reports improvement of the swelling and redness with IV antibiotics. Dr. José evaluated the patient again today and feels the patient's wounds are healing very well and will discharge the patient have him follow-up with him on March 12 in the office. He would also recommend continuing the antibiotics he was on prior to admission ciprofloxacin and clindamycin until his prescription is completed. He would like the patient to Continue with daily application of Betadine, adaptic and gauze roll and Hi Wrap. Use surgical shoe for ambulation with walker. Wound culture shows no growth at this time will continue monitoring. Blood cultures showing no growth at this time will continue monitoring. Venous Doppler was negative for acute DVT. Patient is cleared to be discharged home to follow-up with Dr. José in the office. (2) Depression: Code(s): F32.9 - Major depressive disorder, single episode, unspecified Status: Chronic Assessment and Plan: Continue with patient's Effexor (3) Rosacea: Code(s): L71.9 - Rosacea, unspecified Status: Chronic Assessment and Plan: Continue with patient's home creams (4) Anemia: Code(s): D64.9 - Anemia, unspecified Status: Acute Assessment and Plan: Patient H&H has been stable since arrival. Continue to monitor. Transfuse as needed. (5) Anxiety: Code(s): F41.9 - Anxiety disorder, unspecified Status: Chronic Assessment and Plan: Continue with Effexor and Seroquel (6) Hypothyroidism, unspecified: Code(s): E03.9 - Hypothyroidism, unspecified Status: Chronic Assessment and Plan: TSH was slightly elevated at 5.520 but free T4 and T3 was normal. This is consistent with subclinical hypothyroidism. Will have him continue on his normal levothyroxine and follow-up with primary care provider for further evaluation and recheck in 6 weeks. (7) Parkinson's disease: Code(s): G20 - Parkinson's disease Status: Chronic Assessment and Plan: Continue with carbidopa levodopa and amantadine (8) Hyperlipidemia, unspecified: Code(s): E78.5 - Hyperlipidemia, unspecified Status: Chronic Assessment and Plan: Continue with atorvastatin DS: Summary Hospital Course Reason for hospitalization: Patient is a 75-year-old man with history of Parkinson's disease, who presented to the emergency department from Dr. José Podiatry office for worsening redness, swelling and pain to his right foot where he recently had surgery on 02/17/2020. The patient had a procedure on 02/17/2020 he had fusion of the 1st metatarsophalangeal joint of the right foot. Hammertoe repair 2nd and 3rd digits right foot with arthrodesis of the proximal interphalangeal joints of the affected digits. Well shortening 2nd and 3rd metatarsals osteomies right foot. The patient had been healing well but then de
--- NOTE | 2020-03-09 11:29 | PC.NURSE ---
Wound cx is negative.
--- NOTE | 2020-03-14 11:05 | PC.NURSE ---
Blood cx is negative.
== END 2020-03-08 14:20 | disposition home or self-care (01) | DRG 603 ==
PROVIDERS: Nurse Practitioner; Physician Assistant; Admitting Provider Internal Medicine; PCP Family Medicine; Visit Provider Internal Medicine
DX: L03.115 Cellulitis of right lower limb (principal); F32.9 Major depressive disorder, single episode, unspecified; E03.9 Hypothyroidism, unspecified; D64.9 Anemia, unspecified; L71.9 Rosacea, unspecified; F41.9 Anxiety disorder, unspecified; G20 Parkinson's disease; E78.5 Hyperlipidemia, unspecified
CPT/HCPCS: 36415; 73620; 80048; 80053; 81003; 83605; 83735; 84439; 84443; 84480; 85025; 85027; 86140; 87040; 87070; 87205; 93970; A9270; J0131; J0690; J1650

== ENCOUNTER 2022-02-28 01:12 | Day surgery (SDC) | payer MEDICARE, SELFPAY ==
[2022-02-21 08:30] VITALS: BMI 17.6
--- NOTE | 2022-02-27 20:26 | PM.HPGS ---
History of Present Illness History of Present Illness Consent: Risks, benefits, and alternatives have been discussed and questions answered. Patient agrees to proceed with procedure. Chief complaint: constipation, abnor.weightloss, hx of colon polyps Narrative: Yosvany Donovan is a 76 year old male referred for ccolon cancer screening. His last colonosccopy 7 years ago was negative for polyps. Review of Systems Review of Systems: All systems reviewed & are unremarkable except as noted in HPI and below PMFSH Past Medical History Medical History Anemia Anxiety Arthritis Chronic neck pain Colonic polyp Depression Epistaxis Hard of hearing HTN (hypertension) Hyperlipidemia, unspecified Hypothyroidism, unspecified IFG (impaired fasting glucose) Parkinson's disease Rosacea Surgical History Surgical History Cataract extraction status With lens implants H/O foot surgery 02/17/2020 and then about 8 years ago he had surgery on that right foot History of penile implant Status post hernia repair Family History Family History Father Family history of coronary artery disease Mother Family history of coronary artery disease Sibling Family history of coronary artery disease Social History Social History Social History: 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 He lives with his Olinda who is his durable power research attorney for healthcare. He desires to be a full code. They have no biological children but adopted 9 foster children. They had over 30 some foster children throughout their life. Patient desires to be a full code. He does not drink or smoke or use marijuana or drugs. Smoking status: Never smoker Second hand tobacco smoke exposure: No Alcohol intake: never Substance use: never Substance use type: does not use Living arrangements: with family Gender identity (if verbalized by the patient): Male Spiritual care concerns: No Meds Home Medications and Allergies Home Medications Medication Instructions Recorded Confirmed Type venlafaxine 150 mg tablet,extended 150 mg PO DAILY 07/08/19 02/21/22 History release 24 hr amantadine HCl 100 mg tablet 100 mg PO BID 02/14/20 02/21/22 History carbidopa ER 50 mg-levodopa 200 mg 1 tablet PO Q3H 02/14/20 02/28/22 History tablet,extended release Saccharomyces boulardii 250 mg 250 mg PO BID 14 days #28 caps 03/08/20 02/21/22 Rx capsule (Florastor) cholecalciferol (vitamin D3) 1,250 1,250 mcg PO WEEKLY #12 caps 08/10/20 02/21/22 Rx mcg (50,000 unit) capsule quetiapine 100 mg tablet 100 mg PO HS #90 tabs 08/29/20 02/21/22 Rx atorvastatin 10 mg tablet 10 mg PO DAILY #90 tabs 11/22/20 02/21/22 Rx levothyroxine 50 mcg tablet 50 mcg PO DAILY #90 tabs 01/17/22 02/28/22 Rx (Synthroid) sodium sul 1.479 gram-potas ch See Rx Instructions PO PER PKG DIR 02/19/22 02/21/22 Rx 0.188 gram-magnes sul 0.225 gram #24 tabs tablet (Sutab) propranolol 20 mg tablet 20 tablet PO DAILY 02/24/22 02/24/22 History terbinafine HCl 250 mg tablet 250 mg PO DAILY 02/24/22 02/24/22 History Allergies Allergy/AdvReac Type Severity Reaction Status Date / Time No Known Allergies Allergy Verified 02/28/22 06:25 Exam Resp: Auscultation: clear to auscultation bilaterally Cardio: Rate: regular rate Rhythm: regular rhythm GI: GI Palp: Yes Soft to palpation and No Tenderness to palpation present (GI) Assessment and Plan Assessment and plan (1) Colon cancer screening: Code(s): Z12.11 - Encounter for screening for malignant neoplasm of colon Status: Acute
[2022-02-28 06:28] VITALS: BP 141/76; PULSE 79; RESP 20; TEMP 36.2; O2SAT 95
[2022-02-28] MEDS: LACTATED RINGERS 1,000 ML 150 ML IV CONT (06:39)
--- NOTE | 2022-02-28 07:31 | WPDANESEPPF ---
Anes - Initial Pre Proc Eval Procedure: Operation Date: 02/28/22 07:30 Proposed Procedures p Colonoscopy - Ricky Carmen MD Date/Time: 02/28/22 07:31 Surgeon: Ricky Carmen MD Pre Op Diagnosis: constipation, abnor.weightloss, hx of colon polyps Patient Data Age: 76 Gender: M Height: 1.91 m Weight: 60.1 kg Last Vital Signs Temp 97.2 F L 02/28/22 06:28 Pulse 79 02/28/22 06:28 Resp 20 02/28/22 06:28 BP 141/76 H 02/28/22 06:28 Pulse Ox 95 02/28/22 06:28 O2 Del Method Room Air 02/28/22 06:28 Allergies Allergy/AdvReac Type Severity Reaction Status Date / Time No Known Allergies Allergy Verified 02/28/22 06:25 Home Medications Medication Instructions Recorded Confirmed Type venlafaxine 150 mg tablet,extended 150 mg PO DAILY 07/08/19 02/21/22 History release 24 hr amantadine HCl 100 mg tablet 100 mg PO BID 02/14/20 02/21/22 History carbidopa ER 50 mg-levodopa 200 mg 1 tablet PO Q3H 02/14/20 02/28/22 History tablet,extended release Saccharomyces boulardii 250 mg 250 mg PO BID 14 days #28 caps 03/08/20 02/21/22 Rx capsule (Florastor) cholecalciferol (vitamin D3) 1,250 1,250 mcg PO WEEKLY #12 caps 08/10/20 02/21/22 Rx mcg (50,000 unit) capsule quetiapine 100 mg tablet 100 mg PO HS #90 tabs 08/29/20 02/21/22 Rx atorvastatin 10 mg tablet 10 mg PO DAILY #90 tabs 11/22/20 02/21/22 Rx levothyroxine 50 mcg tablet 50 mcg PO DAILY #90 tabs 01/17/22 02/28/22 Rx (Synthroid) sodium sul 1.479 gram-potas ch See Rx Instructions PO PER PKG DIR 02/19/22 02/21/22 Rx 0.188 gram-magnes sul 0.225 gram #24 tabs tablet (Sutab) propranolol 20 mg tablet 20 tablet PO DAILY 02/24/22 02/24/22 History terbinafine HCl 250 mg tablet 250 mg PO DAILY 02/24/22 02/24/22 History Patient hx anesthesia problems: none Family hx anesthesia problems: none Results Review: All pre-operative results and documents have been reviewed as part of the pre-operative evaluation. [facility] Past Medical History Medical History Anemia Anxiety Arthritis Chronic neck pain Colonic polyp Depression Epistaxis Hard of hearing HTN (hypertension) Hyperlipidemia, unspecified Hypothyroidism, unspecified IFG (impaired fasting glucose) Parkinson's disease Rosacea Surgical History Surgical History Cataract extraction status With lens implants H/O foot surgery 02/17/2020 and then about 8 years ago he had surgery on that right foot History of penile implant Status post hernia repair Family History Family History Father Family history of coronary artery disease Mother Family history of coronary artery disease Sibling Family history of coronary artery disease Social History Social History Social History: 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 He lives with his Olinda who is his durable power drafter mechanical for healthcare. He desires to be a full code. They have no biological children but adopted 9 foster children. They had over 30 some foster children throughout their life. Patient desires to be a full code. He does not drink or smoke or use marijuana or drugs. Smoking status: Never smoker Second hand tobacco smoke exposure: No Alcohol intake: never Substance use: never Substance use type: does not use Living arrangements: with family Gender identity (if verbalized by the patient): Male Spiritual care concerns: No Anes - Eval Final PreProcedure Day of Procedure 02/28/22 07:31 Patient weight: normal Heart: regular rate and rhythm Lungs: clear to auscultation Airway: Mallampati scale class III Neurological: alert and oriented Last oral intake: >/= 8 hours ASA classification: III Emergent: no Anesthetic plan: proceed Anesthesia type and monitoring: general GIVS an
[2022-02-28 07:53] VITALS: BP 93/54; PULSE 62; RESP 20; O2SAT 100
[2022-02-28 08:03] VITALS: BP 117/71; PULSE 56; RESP 20; O2SAT 100
[2022-02-28 08:13] VITALS: BP 132/76; PULSE 55; RESP 20; O2SAT 100
== END 2022-02-28 08:29 | disposition home or self-care (01) ==
PROVIDERS: PCP Family Medicine; Visit Provider Internal Medicine Gastroenterology
PROC: 0DJD8ZZ Inspection of Lower Intestinal Tract, Via Natural or Artificial Opening Endoscopic (ICD-10-PCS; CPT 45378; principal; 2022-02-28 07:30)
DX: Z12.11 Encounter for screening for malignant neoplasm of colon (principal); D12.2 Benign neoplasm of ascending colon; K57.30 Diverticulosis of large intestine without perforation or abscess without bleeding; K59.00 Constipation, unspecified; R63.4 Abnormal weight loss; E03.9 Hypothyroidism, unspecified; D64.9 Anemia, unspecified; F41.9 Anxiety disorder, unspecified; M19.90 Unspecified osteoarthritis, unspecified site; F32.A Depression, unspecified; I10 Essential (primary) hypertension; E78.5 Hyperlipidemia, unspecified; G20 Parkinson's disease; R73.01 Impaired fasting glucose; L71.9 Rosacea, unspecified
CPT/HCPCS: 45385; 88305; J2704; J7120

== ENCOUNTER 2022-10-02 11:07 | Outpatient (CLI) | payer MEDICARE, SELFPAY ==
--- NOTE | ~2022-10-02 | CT_ITS ---
EXAMINATION: CT sinus wo con DATE: 10/02/2022 11:43 INDICATION: Odontogenic acute on chronic sinusitis. TECHNIQUE: Computed tomography (CT) of the paranasal sinuses was performed without intravenous contra st. Iterative reconstruction technique was employed. The dose-length product was 291.45 mGy-cm. COMPARISON: None FINDINGS: There is complete opacification of the frontal sinuses and many of the anterior ethmoid sin uses. There is mucosal thickening in the posterior ethmoid sinuses. There is mild mucosal thickening in the sphenoid sinuses. There is complete opacification of right maxillary sinus and near complete o pacification of left maxillary sinus. There is rightward deviation of the nasal septum. The ostiomeat al units are totally occluded. There is thickening and sclerosis of the yancey of the maxillary sinuse s. There is extensive dental disease. IMPRESSION: 1. Chronic sinusitis. Reviewed, dictated and finalized at location A. [facility] [employer] [facility] IMPRESSION: 1. Chronic sinusitis.
== END 2022-10-02 11:08 | disposition home or self-care (01) ==
PROVIDERS: PCP Family Medicine; Visit Provider Otolaryngology
DX: J32.9 Chronic sinusitis, unspecified (principal)
CPT/HCPCS: 70486

== ENCOUNTER 2022-11-04 11:08 | Outpatient (CLI) | payer MEDICARE, SELFPAY | END 2022-11-04 11:09 | disposition home or self-care (01) | LOC: ANHAUDIO 11:09 | PROVIDERS: PCP Family Medicine; Visit Provider Otolaryngology | DX: H91.93 Unspecified hearing loss, bilateral (principal) | CPT/HCPCS: 92557; 92567 ==

== ENCOUNTER 2022-11-18 12:38 | Outpatient (CLI) | payer MEDICARE, SELFPAY ==
--- NOTE | 2022-11-18 12:48 | ECG_ITS ---
Measurements Intervals [place] Rate: 61 P: 79 [place]: 168 QRS: -55 QRSD: 166 T: 40 QT: 451 QTc: 454 Interpretive Statements SINUS RHYTHM POSSIBLE LEFT ATRIAL ENLARGEMENT RIGHT BUNDLE BRANCH BLOCK LEFT ANTERIOR FASCICULAR BLOCK BASELINE ARTIFACT- I, II, III, AVR, AVL, AVF ABNORMAL ECG COMPARED TO ECG 02/15/2020 10:57:30 RIGHT BUNDLE-BRANCH BLOCK NOW PRESENT Electronically Signed On 11-18-2022 13:15:56 CDT by Kyler Levy D.O.
== END 2022-11-18 12:39 | disposition home or self-care (01) ==
LOC: ANHSURGERY 12:42
PROVIDERS: PCP Family Medicine; Visit Provider Otolaryngology
DX: Z01.818 Encounter for other preprocedural examination (principal); I10 Essential (primary) hypertension; R94.31 Abnormal electrocardiogram [ECG] [EKG]
CPT/HCPCS: 93005

== ENCOUNTER 2022-11-25 00:13 | Day surgery (SDC) | payer MEDICARE, SELFPAY ==
[2022-11-17 10:00] VITALS: BMI 17.3
--- NOTE | 2022-11-17 10:22 | PC.NURSE ---
Addendum entered by Mary Harrison RN 11/17/22 10:28: ADMEN- ADDED VENLAFAXINE TO PRE-OP MEDS TO TAKE Original Note: Report to the Outpatient Waiting Room, entrance under the green pavilion located off [facility], at time __8:30AM on date __11/25/22 . Planned Procedure Time: __10:30AM . Time changes happen often and if your time is changed the preop area will call you the afternoon before. - You and your visitor will be asked to self-screen and do not enter if you have any COVID symptoms. - Only one visitor is requested with a max of two and NO children visitors are allowed at this time. - The patient visitor may be requested to leave or wait in car when not with patient due to distancing restrictions. - A mask is optional within the hospital at this time. Patients may have clear liquids (water, carbonated beverages, clear teas, apple juice) until 3 hours prior to surgery with a maximum of 20 ounces. - No food from midnight until time of surgery. Take the following medications with a SIP of water the morning of surgery: __ AMANTADINE, BOTH [id number] & CARBIDOPA-LEVODOPA, LEVOTHYROXINE, PROPRANOLOL DO NOT STOP ANY OF YOUR OTHER PRESCRIPTION MEDICATIONS PRIOR TO SURGERY ?EXCEPT THE FOLLOWING Medications to discontinue per physician ___NONE Please no make-up, nail surinamese, hairspray, perfume, deodorant, or body powder the day of surgery. No jewelry (including any body piercings) or valuables the day of surgery, leave them at home. Please take a shower or bath the night before, or the morning of, surgery with an antibacterial soap. Wear comfortable, loose fitting clothing. Children are encouraged to wear pajamas. - Jewelry must be removed prior to entering the operating room. Rings and piercings that are not removed may be cut off. - The hospital will not accept responsibility for valuables. - Please leave all valuables, including medications, at home the day of surgery. If you are going home after surgery, a licensed cart driver must drive you home. - NO public transportation without another adult if you receive anesthesia. - We recommend that an adult stay with you for 24 hours following discharge. - We also recommend that you do not drive, make important decision, drink alcoholic beverages, or take any drugs that were not prescribed by your health care provider for at least 24 hours after your discharge time. Follow any additional instructions given to you from your surgeon. If you or anyone in your household have experienced Covid symptoms in the past week, please notify your surgeon or the nurse liaison at the phone number below for possible testing. Telephone instructions given to _PATIENT AND WIFE__and asked if any additional questions and then verbalized understanding. Patient advised to call surgeon office or pre surgery nurse liaison [phone] if any additional questions.
--- NOTE | 2022-11-17 10:25 | PC.NURSE ---
Report to the Outpatient Waiting Room, entrance under the green pavilion located off [facility], at time _8:30AM on date __11/25/22 . Planned Procedure Time: __10:30AM . Time changes happen often and if your time is changed the preop area will call you the afternoon before. - You and your visitor will be asked to self-screen and do not enter if you have any COVID symptoms. - Only one visitor is requested with a max of two and NO children visitors are allowed at this time. - The patient visitor may be requested to leave or wait in car when not with patient due to distancing restrictions. - A mask is optional within the hospital at this time. Patients may have clear liquids (water, carbonated beverages, clear teas, apple juice) until 3 hours prior to surgery with a maximum of 20 ounces. - No food from midnight until time of surgery - Infants may have breast milk until 4 hours before surgery, infant formula 6 hours prior to surgery. - Children will be allowed to drink immediately following surgery. If applicable, please bring a bottle or sippy cup to assist with drinking. Juice, water, soda, and popsicles are readily available. For infants on formula, please bring formula the day of surgery. Pacifiers are allowed. Take the following medications with a SIP of water the morning of surgery: __AMANTADINE, BOTH [id number] & CARBIDOPA-LEVODOPA, LEVOTHYROXINE, PROPRANOLOL & VENLAFAXINE DO NOT STOP ANY OF YOUR OTHER PRESCRIPTION MEDICATIONS PRIOR TO SURGERY ?EXCEPT THE FOLLOWING Medications to discontinue per physician NONE Please no make-up, nail albanian, hairspray, perfume, deodorant, or body powder the day of surgery. No jewelry (including any body piercings) or valuables the day of surgery, leave them at home. Please take a shower or bath the night before, or the morning of, surgery with an antibacterial soap. Wear comfortable, loose fitting clothing. Children are encouraged to wear pajamas. - Jewelry must be removed prior to entering the operating room. Rings and piercings that are not removed may be cut off. - The hospital will not accept responsibility for valuables. - Please leave all valuables, including medications, at home the day of surgery. If you are going home after surgery, a licensed pick up and delivery driver must drive you home. - NO public transportation without another adult if you receive anesthesia. - We recommend that an adult stay with you for 24 hours following discharge. - We also recommend that you do not drive, make important decision, drink alcoholic beverages, or take any drugs that were not prescribed by your health care provider for at least 24 hours after your discharge time. Follow any additional instructions given to you from your surgeon. If you or anyone in your household have experienced Covid symptoms in the past week, please notify your surgeon or the nurse liaison at the phone number below for possible testing. Telephone instructions given to _PATIENT & WIFE____and asked if any additional questions and then verbalized understanding. Patient advised to call surgeon office or pre surgery nurse liaison [phone] if any additional questions.
--- NOTE | 2022-11-24 15:16 | WPDANESEPPF ---
Anes - Initial Pre Proc Eval Procedure: Operation Date: 11/25/22 10:30 Proposed Procedures p Endoscopic Septoplasty - Segun Johnson MD s Image Guided Bilateral Maxillary Antrostomy with Tissue Removal, Bilateral Total Ethmoidectomy, Bilateral Frontal Sinusotomy, Bilateral Sphenoidotomy Without Tissue Removal - Segun Johnson MD Date/Time: 11/24/22 15:16 Surgeon: Segun Johnson MD Pre Op Diagnosis: chronic sinusitis Patient Data Age: 77 Gender: M Height: 1.91 m Weight: 63 kg Allergies Allergy/AdvReac Type Severity Reaction Status Date / Time No Known Allergies Allergy Verified 11/25/22 09:47 Home Medications Medication Instructions Recorded Confirmed Type amantadine HCl 100 mg tablet 100 mg PO TID 02/14/20 11/17/22 History atorvastatin 10 mg tablet 10 mg PO DAILY #90 tabs 11/22/20 11/17/22 Rx terbinafine HCl 250 mg tablet 250 mg PO DAILY 02/24/22 11/17/22 History venlafaxine 150 mg 150 mg PO BID 08/27/22 11/17/22 History capsule,extended release 24 hr propranolol 20 mg tablet 20 mg PO Q12H 09/24/22 11/17/22 History quetiapine 100 mg tablet 100 mg PO QHS 09/24/22 11/17/22 History carbidopa 25 mg-levodopa 100 mg 0.5 tablet PO Q3-4H 11/17/22 11/17/22 History tablet carbidopa 50 mg-levodopa 200 1 tablet PO Q3-4D 11/17/22 11/17/22 History mg-entacapone 200 mg tablet levothyroxine 50 mcg tablet 50 mcg PO QAM 11/17/22 11/17/22 History (Synthroid) sennosides 15 mg tablet (Perdiem 15 mg PO HS 11/17/22 11/17/22 History Overnight Relief) doxycycline hyclate 100 mg capsule 100 mg PO DAILY #5 caps 11/20/22 Rx prednisone 5 mg tablet 5 mg PO DAILY #5 tabs 11/20/22 Rx ECG: Date of Service: 11/18/22 Procedure(s): CA 12 lead EKG Accession Number(s): [id number] cc: ~ ? Measurements Intervals? [place]? Rate: ? 61 ? P:? 79 RI: ? 168? QRS:? -55 QRSD: ? 166? T:? 40 QT: ? 451? QTc:? 454? Interpretive Statements SINUS RHYTHM POSSIBLE LEFT ATRIAL ENLARGEMENT RIGHT BUNDLE BRANCH BLOCK LEFT ANTERIOR FASCICULAR BLOCK BASELINE ARTIFACT- I, II, III, AVR, AVL, AVF ABNORMAL ECG COMPARED TO ECG 02/15/2020 10:57:30 RIGHT BUNDLE-BRANCH BLOCK NOW PRESENT Electronically Signed On 11-18-2022 13:15:56 CDT by Kyler Levy D.O. Patient hx anesthesia problems: none Family hx anesthesia problems: none Results Review: All pre-operative results and documents have been reviewed as part of the pre-operative evaluation. [facility] Past Medical History Medical History Anemia Anxiety Arthritis Chronic neck pain Colonic polyp Depression Epistaxis Hard of hearing HTN (hypertension) Hyperlipidemia, unspecified Hypothyroidism, unspecified IFG (impaired fasting glucose) Parkinson's disease Rosacea Surgical History Surgical History Cataract extraction status With lens implants H/O foot surgery 02/17/2020 and then about 8 years ago he had surgery on that right foot History of penile implant Status post hernia repair Family History Family History Father Family history of coronary artery disease Mother Family history of coronary artery disease Sibling Family history of coronary artery disease Social History Social History Social History: 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 He lives with his Olinda who is his durable power cardiac cath technologist for healthcare. He desires to be a full code. They have no biological children but adopted 9 foster children. They had over 30 some foster children throughout their life. Chirssy
--- NOTE | 2022-11-24 18:15 | PM.IMHP ---
H&P: HPI History of Present Illness Date/Time: 11/24/22 18:15 Chief Complaint: Chronic sinusitis nasal polyps nasal congestion obstruction facial pressure septal deviation nasal obstruction Narrative: planned surgical procedure Review of Systems Review of Systems: All systems reviewed & are unremarkable except as noted in HPI and below PMFSH Past Medical History Medical History Anemia Anxiety Arthritis Chronic neck pain Colonic polyp Depression Epistaxis Hard of hearing HTN (hypertension) Hyperlipidemia, unspecified Hypothyroidism, unspecified IFG (impaired fasting glucose) Parkinson's disease Rosacea Surgical History Surgical History Cataract extraction status With lens implants H/O foot surgery 02/17/2020 and then about 8 years ago he had surgery on that right foot History of penile implant Status post hernia repair Family History Family History Father Family history of coronary artery disease Mother Family history of coronary artery disease Sibling Family history of coronary artery disease Social History Social History Social History: 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 He lives with his Olinda who is his durable power womens health nurse practitioner for healthcare. He desires to be a full code. They have no biological children but adopted 9 foster children. They had over 30 some foster children throughout their life. Patient desires to be a full code. He does not drink or smoke or use marijuana or drugs. Smoking status: Never smoker Second hand tobacco smoke exposure: No Alcohol intake: never Substance use: never Substance use type: does not use Lack of Transportation: No Lack of Food: Never True Current Housing: I Have Housing Concerned About Future Housing: No Difficulty Paying Gas/Electric Bills: No Difficulty Paying for Meds: No Currently Unemployed: No Education: Master's Degree or Higher Difficulty w/ Childcare or Family Care: No Living arrangements: with family Additional living arrangements comments: AND 2 CHILDREN Occupation/Education: retired Gender identity (if verbalized by the patient): Male Spiritual care concerns: No Meds Home Medications and Allergies Home Medications Medication Instructions Recorded Confirmed Type amantadine HCl 100 mg tablet 100 mg PO TID 02/14/20 11/17/22 History atorvastatin 10 mg tablet 10 mg PO DAILY #90 tabs 11/22/20 11/17/22 Rx terbinafine HCl 250 mg tablet 250 mg PO DAILY 02/24/22 11/17/22 History venlafaxine 150 mg 150 mg PO BID 08/27/22 11/17/22 History capsule,extended release 24 hr propranolol 20 mg tablet 20 mg PO Q12H 09/24/22 11/17/22 History quetiapine 100 mg tablet 100 mg PO QHS 09/24/22 11/17/22 History carbidopa 25 mg-levodopa 100 mg 0.5 tablet PO Q3-4H 11/17/22 11/17/22 History tablet carbidopa 50 mg-levodopa 200 1 tablet PO Q3-4D 11/17/22 11/17/22 History mg-entacapone 200 mg tablet levothyroxine 50 mcg tablet 50 mcg PO QAM 11/17/22 11/17/22 History (Synthroid) sennosides 15 mg tablet (Perdiem 15 mg PO HS 11/17/22 11/17/22 History Overnight Relief) doxycycline hyclate 100 mg capsule 100 mg PO DAILY #5 caps 11/20/22 Rx prednisone 5 mg tablet 5 mg PO DAILY #5 tabs 11/20/22 Rx Allergies Allergy/AdvReac Type Severity Reaction Status Date / Time No Known Allergies Allergy Verified 11/17/22 09:46 Exam Narrative: septal deviation chronic sinus Assessment and Plan Assessment and plan (1) Acute sinusitis: Code(s): J01.90 - Acute sinusitis, unspecified Status: Acute Assessment and Plan: OR possible septoplasty endoscopic, will absolutely do image guided endoscopic bilateral maxillary antrostomies with tissue removal image g
[2022-11-25] VITALS (11 sets, daily range): BP systolic 145–176; BP diastolic 69–91; PULSE 53–80; RESP 12–20; TEMP 36.2–36.7; O2SAT 99–100
--- NOTE | 2022-11-25 07:22 | WPDHPUPDATE1 ---
History and Physical Update Update Date/Time: 11/25/22 07:22 History and Physical has been reviewed, including an updated exam of the patient. There are NO changes in the patient's condition. Risks, benefits, and alternatives have been discussed and questions answered. Patient agrees to proceed with procedure.
[2022-11-25] MEDS: LACTATED RINGERS 1,000 ML 30 ML IV CONT (09:45)
[2022-11-25] MEDS: ceFAZolin 2 GM/D5W 50 ML 2 GM/50 ML BAG IVPB (11:03)
[2022-11-25] MEDS: OXYMETAZOLINE HCL 0.05% NAS 15 ML BTL (*BKC) 1 SPRAY NASAL ×2 (11:27→13:42)
[2022-11-25] MEDS: MUPIROCIN 2% OINT 22 GM TUBE 1 APPLIC EACH NARE (13:42)
[2022-11-25] MEDS: LIDO 1%/EPINEPHRINE 1:100,000 50 ML VIAL 20 ML INFILTRATE (13:47)
--- NOTE | 2022-11-25 14:54 | W.PM.PROC2 ---
Procedure Note - Detailed Date of Procedure 11/25/22 Pre-op Diagnosis chronic sinusitis, nasal polyps nasal obstruction, septal deviation Post-op Diagnosis Same Procedure Performed endoscopic assisted septoplasty bilateral image guided endoscopic maxillary antrostomies frontal sinusotomies total ethmoidectomies sphenoidotomies the maxillary antrostomies were with tissue removal the frontal sinusotomies with tissue removal. Bilateral middle turbinectomies were also performed. Surgeon Segun Johnson MD Anesthesia General Indications See above Findings severely diseased tissue in all the aforementioned sinuses disease tissue in the maxillary sinuses removed in the frontal sinuses removed purulence all the aforementioned sinuses right high septal deviation straightened. Description of Procedure Patient identified consent verified. Patient brought operating. Time-out performed. General anesthesia induced endotracheal tube secured. Patient prepped draped position procedure confirmed 2nd time-out performed. Image guidance initiated and confirmed. Afrin-soaked pledgets placed allowed to sit for 5 minutes the bilateral nasal passages. Afrin-soaked pledgets removed. Septum was deviated and obstructive. 10 cc 1% lidocaine 1 100,000 parts epinephrine injected the bilateral nasal septum. Left-sided Kam incision made with 15 blade. Seven Uzbek suction utilized to lift left nasal septal flap osteotome utilized to cross over right nasal septal flap elevated no perforations window created with the blade osteotome Mae and Raymond Stafford forceps. High deviation removed with Rizwan Stafford forceps and Mae forceps. [place] incision closed 3 interrupted 5 0 fast gut sutures. Maxillary antrostomies performed with image guidance OS sorry the middle turbinates were obstructive in also removed with a removed with straight through cut and Bovie suction electrocautery at the stump setting of 10-15. They were severely diseased as well. Maxillary antrostomies performed with image guidance double ball tip probe microdebrider angled microdebrider to remove the diseased tissue within the sinus down biting and backbiting forceps as well as straight through cut. This bilateral. Total ethmoids performed with [place] image guidance and microdebrider this was a bilateral procedure. Sphenoidotomies performed with image guidance sphenoid punch Kerr[place]. This was a bilateral procedure. All the aforementioned sinuses were washed out including the frontals which will discuss. Frontals performed with 70 degree endoscope frontal sinus suction frontal sinus seeker Jayy Campos draft instruments and rad 60 microdebrider to remove the diseased tissue. Following the procedure blood loss acceptable less than 200 cc the patient ooze throughout. Nova pack was placed in the bilateral middle meati I postoperative cavity soaked with Afrin. Bilateral nasal passages suction the posterior choana no active bleeding noted. Bella splints placed after being covered in mupirocin sutured anteriorly using a 3-0 mattressed nylon suture. Patient tolerated the procedure well. No complications. Blood loss again less than 200 cc. Care the patient given Anesthesiology. I performed all dictated portions. Patient taken to PACU. Estimated Blood Loss -200.0 Drains No Packing Yes ( Nova pack) Pathology None sent Complications No immediate complications Condition Stable Disposition PACU [facility] Billing Surgery - Charge Forward: Surgery Billing
== END 2022-11-25 16:30 | disposition home or self-care (01) ==
PROVIDERS: PCP Family Medicine; Visit Provider Otolaryngology
PROC: (CPT 30520; principal; 2022-11-25 10:30)
PROC: (CPT 31267; 2022-11-25 10:30)
DX: J32.0 Chronic maxillary sinusitis (principal); J33.8 Other polyp of sinus; J34.2 Deviated nasal septum; R09.82 Postnasal drip; I10 Essential (primary) hypertension; E78.5 Hyperlipidemia, unspecified; E03.9 Hypothyroidism, unspecified; G20 Parkinson's disease; D64.9 Anemia, unspecified; F41.9 Anxiety disorder, unspecified; F32.A Depression, unspecified
CPT/HCPCS: 31267; 31253; 61782; 30520; 30999; 93005; A9270; J0690; J1100; J2405; J2704; J3010; J7120

== ENCOUNTER 2022-12-05 14:47 | Emergency (ER) | payer MEDICARE, SELFPAY ==
[2022-12-05 15:03] VITALS: BP 109/48; PULSE 67; RESP 20; TEMP 36.9; O2SAT 100
--- NOTE | 2022-12-05 15:04 | ED.EXTPRO ---
HPI - Extremity Problem General Chief complaint: Extremity Problem,Nontraumatic Stated complaint: Rt Foot Swelling Time Seen by Provider: 12/05/22 15:08 Source: patient Mode of arrival: ambulatory Limitations: dementia History of Present Illness HPI Narrative: 77-year-old male presents with concern of right foot swelling, warmth. Reports he has a bunion on lateral foot that has more than doubled in size after he was working out in his yard and wore shoes that rubbed on his feet. He denies fever, aches, chills, sweats. Reports he is currently taking doxycycline after having a sinus surgery. MD Complaint: extremity swelling Related Data Home Medications Medication Instructions Recorded Confirmed amantadine HCl 100 mg tablet 100 mg PO TID 02/14/20 12/05/22 terbinafine HCl 250 mg tablet 250 mg PO DAILY 02/24/22 12/05/22 venlafaxine 150 mg 150 mg PO BID 08/27/22 12/05/22 capsule,extended release 24 hr propranolol 20 mg tablet 20 mg PO Q12H 09/24/22 12/05/22 quetiapine 100 mg tablet 100 mg PO QHS 09/24/22 12/05/22 carbidopa 25 mg-levodopa 100 mg 0.5 tablet PO Q3-4H 11/17/22 12/05/22 tablet carbidopa 50 mg-levodopa 200 1 tablet PO Q3-4D 11/17/22 12/05/22 mg-entacapone 200 mg tablet levothyroxine 50 mcg tablet 50 mcg PO QAM 11/17/22 12/05/22 (Synthroid) sennosides 15 mg tablet (Perdiem 15 mg PO HS 11/17/22 12/05/22 Overnight Relief) doxycycline hyclate 100 mg capsule 100 mg PO DAILY 12/05/22 12/05/22 Allergies Allergy/AdvReac Type Severity Reaction Status Date / Time No Known Allergies Allergy Verified 12/05/22 14:55 Review of Systems Review of Systems: CONSTITUTIONAL: Denies malaise, chills, sweats, or fever. EYES: Denies redness, or discharge. ENT: Denies rhinorrhea, congestion, swollen lips, swollen tongue CARDIOVASCULAR: Denies chest pain, palpitations, or edema. RESPIRATORY: Denies cough or dyspnea. GASTROINTESTINAL: Denies abdominal pain, nausea, vomiting SKIN: Reports redness, swelling of the right foot with a raised area to the lateral foot. Denies purulent drainage, vesicles, bullae, numbness, pain beyond proportion MUSCULOSKELETAL: Denies joint pain or myalgia. NEUROLOGIC: Denies headache. All systems reviewed & are unremarkable except as noted in HPI and below PMFSH Past Medical History Medical History Anemia Anxiety Arthritis Chronic neck pain Colonic polyp Depression Epistaxis Hard of hearing HTN (hypertension) Hyperlipidemia, unspecified Hypothyroidism, unspecified IFG (impaired fasting glucose) Parkinson's disease Rosacea Surgical History Surgical History Cataract extraction status With lens implants H/O foot surgery 02/17/2020 and then about 8 years ago he had surgery on that right foot History of penile implant Status post hernia repair Family History Family History Father Family history of coronary artery disease Mother Family history of coronary artery disease Sibling Family history of coronary artery disease Social History Social History Social History: 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 He lives with his Olinda who is his durable power employment law attorney for healthcare. He desires to be a full code. They have no biological children but adopted 9 foster children. They had over 30 some foster children throughout their life. Patient desires to be a full code. He does not drink or smoke or use marijuana or drugs. Smoking status: Never smoker Second hand tobacco smoke exposure: No Alcohol intake: never Substance use: never Substance use type: does not use Lack of Transportation: No Lack of Food: Never True Current Housing: I Have Housing Concerned About Future Housing: No Difficulty Paying Gas/Electric Bills: No Difficulty Paying for
== END 2022-12-05 15:48 | disposition home or self-care (01) ==
PROVIDERS: Emergency Provider Nurse Practitioner; PCP Family Medicine
DX: L02.611 Cutaneous abscess of right foot (principal); L03.115 Cellulitis of right lower limb; I10 Essential (primary) hypertension; E78.5 Hyperlipidemia, unspecified; E03.9 Hypothyroidism, unspecified; F32.A Depression, unspecified; F41.9 Anxiety disorder, unspecified; G20 Parkinson's disease
CPT/HCPCS: 10060; 87070; 87075; 87076; 87147; 87181; 87186; 87205; 99213; G0463

== ENCOUNTER 2023-03-20 11:33 | Inpatient (IN) | payer MEDICARE, SELFPAY ==
[2023-03-20] VITALS (7 sets, daily range): BP systolic 115–135; BP diastolic 61–85; PULSE 61–77; RESP 18–22; TEMP 36.6–37.4; O2SAT 97–100; BMI 15.4
--- NOTE | ~2023-03-20 | XR_ITS ---
MODIFIED ESOPHAGRAM HISTORY: Dysphagia. Parkinson's disease. TECHNIQUE: Modified barium esophagram was performed by speech pathologist under radiologist fluorosco pic guidance. This was recorded on tape. The exam was reviewed on 03/21/2023 13:20 CDT. The DAP for this procedure was 0.49 Gycm2. Fluoroscopy time is 0.9 minutes. FINDINGS: Lateral projection of the cervical spine demonstrates normal alignment. Pharyngeal stage there is reduced laryngeal elevation, laryngeal adduction, tongue base retraction an d pharyngeal squeeze. There is residue in the vallecula, piriform sinus and pharyngeal residue. No de finite laryngeal penetration or aspiration. Reduced lingual movement noted.. IMPRESSION: 1: No evidence for laryngeal penetration or aspiration. 2: Please refer to speech pathologist report for additional detail. Reviewed, dictated and finalized at location A.
--- NOTE | ~2023-03-20 | CT_ITS ---
EXAMINATION: CT chest abdomen pelvis w con DATE: 03/20/2023 13:50 INDICATION: Unintentional weight loss. TECHNIQUE: Computed tomography (CT) of the chest, abdomen, and pelvis was performed with 100 mL Omnip aque 350 intravenous contrast. Automated exposure control and iterative reconstruction technique were employed. The dose-length product was 389.52 mGy-cm. COMPARISON: CT abdomen and pelvis 09/17/2018 FINDINGS: CHEST CT: There is scarring at the lung apices. There are groundglass opacities in the right middle lobe, lingu la, and lower lobes. There are airspace opacities in left lower lobe with cavitation. A calcified lef t lung nodule is consistent with old granulomatous disease. There is a trace left pleural effusion. T he heart size is normal. No pericardial effusion. There are coronary artery calcifications. There is mild left hilar lymphadenopathy. ABDOMEN/PELVIS CT: Calcifications in the liver and spleen are consistent with old granulomatous disease. The gallbladder , pancreas, and adrenal glands are normal. There is cortical thinning of the kidneys. There is a 10 m m stone in right kidney. There is a penile prosthesis. There are no dilated loops of bowel. The appen lachelle is not visualized. There is calcified atherosclerosis of the aorta and many of the other arteries . There are no pathologically enlarged lymph nodes. There is trace pelvic ascites. There is severe gely mbar spondylosis. IMPRESSION: 1. Pneumonia involving the right middle lobe, lingula, and lower lobes, worst in left lower lobe wher e there is cavitation. 2. Mild left hilar lymphadenopathy, likely reactive. Reviewed, dictated and finalized at location A. IMPRESSION: 1. Pneumonia involving the right middle lobe, lingula, and lower lobes, worst i n left lower lobe where there is cavitation. 2. Mild left hilar lymphadenopathy, likely reactive.
--- NOTE | ~2023-03-20 | CT_ITS ---
CT Scan of the Chest without Contrast: Clinical Indication: Left lower lobe abscess Technique: Contiguous sections were acquired throughout the chest without intravenous contrast. Dose reduction technique was used on this scan by utilizing automated exposure control and iterative recon struction technique. The dose-length product (DLP) was 154.82 mGy-cm. COMPARISON: 03/20/2023 Findings: There is no evidence of any significant mediastinal, hilar or axillary lymphadenopathy. Coronary idalia ry calcifications are noted. No pericardial effusion. Small bilateral pleural effusions are present. No right pleural effusion. Biapical pulmonary scarring noted. Extensive dense left lower lobe consolidation is similar in extent to prior exam. Probable focal area of cavitation or necrosis. There is mild patchy groundglass opaci ty in the lung bases bilaterally otherwise. Images through the upper abdomen reveal small amount of upper abdominal ascites. Impression: Extensive left lower lobe pneumonia is again present with probable focal area of cavitation/neck vers us. Apparent small fluid collection seen on prior exam are not clearly delineated on the current nonc ontrast exam. Patchy mild groundglass opacity in the lung bases otherwise, which could reflect pulmonary edema vers us additional much more mild pneumonia. Small bilateral pleural effusions. Small amount of upper abdominal ascites. Reviewed, dictated and finalized at location . Impression: Extensive left lower lobe pneumonia is again present with probable focal area o f cavitation/neck versus. Apparent small fluid collection seen on prior exam ar e not clearly delineated on the current noncontrast exam. Patchy mild groundglass opacity in the lung bases otherwise, which could reflec t pulmonary edema versus additional much more mild pneumonia. Small bilateral pleural effusions. Small amount of upper abdominal ascites.
--- NOTE | ~2023-03-20 | XR_ITS ---
XR chest 2V 03/21/2023 08:46 Indication: Pneumonia Procedure: 2 view chest Comparison: 11/06/2017 Findings: Heart size is normal. There is left basilar airspace disease, compatible with pneumonia. Th e lungs are hyperinflated which is consistent with, but not diagnostic of chronic obstructive pulmona ry disease. Impression: 1: Left basilar airspace disease, compatible with pneumonia. Cannot exclude underlying mass. Consider correlation with CT chest following appropriate therapy. Reviewed, dictated and finalized at location A. Impression: 1: Left basilar airspace disease, compatible with pneumonia. Cannot exclude und erlying mass. Consider correlation with CT chest following appropriate therapy.
--- NOTE | ~2023-03-20 | XR_ITS ---
XR chest 1V portable 03/23/2023 05:37 Indication: Left pneumonia Procedure: AP portable chest Comparison: Comparison to multiple prior studies sequentially, with oldest reviewed study dated 10/26. Findings: Heart size normal. There is bilateral mixed interstitial and airspace disease with consolid ation most confluent in the left lung base. No significant effusion or pneumothorax. Osteopenia. No a cute osseous abnormality. Impression: 1: Progression of extensive mixed interstitial and airspace disease which may represent edema, pneumo destiny and/or atelectasis. Reviewed, dictated and finalized at location A. Impression: 1: Progression of extensive mixed interstitial and airspace disease which may r epresent edema, pneumonia and/or atelectasis.
--- NOTE | 2023-03-20 12:08 | ECG_ITS ---
Measurements Intervals [place] Rate: 67 P: 86 [place]: 173 QRS: -62 QRSD: 159 T: 52 QT: 434 QTc: 460 Interpretive Statements SINUS RHYTHM VENTRICULAR PREMATURE COMPLEX POSSIBLE LEFT ATRIAL ENLARGEMENT RIGHT BUNDLE BRANCH BLOCK LEFT ANTERIOR FASCICULAR BLOCK CANNOT RULE OUT SEPTAL INFARCT, AGE INDETERMINATE BASELINE ARTIFACT- I, II, III, AVR, AVL, AVF, V3 ABNORMAL ECG COMPARED TO ECG 11/18/2022 12:04:40 NO SIGNIFICANT CHANGES Electronically Signed On 03-20-2023 13:11:26 CDT by Kyler Levy D.O.
[2023-03-20 13:10] LABS: Basophils Percent Auto 0.3 % (0.2-1.2); Eosinophils Absolute Auto 0.2 K/mm3 (0-0.3); Eosinophils Percent Auto 1.4 % (0-4.4); Hemoglobin 10.6 g/dL (14.0-18.0); Immature Granulocyte Absolute 0.07 K/mm3 (0.00-0.031); Immature Granulocyte Percent A 0.5 % (0-0.5); Lymphocytes Absolute Auto 0.76 K/mm3 (0.9-3.2); Lymphocytes Percent Auto 5.7 % (18.3-44.2); Mean Corpuscular HGB Conc 32.1 g/dl (32-36); Mean Corpuscular Hemoglobin 29.9 pg (26-34); Mean Corpuscular Volume 93.2 fl (80-100); Mean Platelet Volume 8.5 fl (7.4-10.4); Monocytes Absolute Auto 1.3 K/mm3 (0.1-0.6); Neutrophils Absolute Auto 10.9 K/mm3 (1.3-6.7); Neutrophils Percent Auto 82.1 % (45.5-73.1); Platelet Count Result 350 k/mm3 (150-375); Red Blood Count 3.54 M/mm3 (4.6-6.20); Red Cell Distribution Width 12.3 % (11.5-14.5); White Blood Count 13.2 K/mm3 (4.5-10.0)
[2023-03-20 13:22] LABS: Alanine Aminotransferase 8 U/L (6-50); Albumin Level 3.2 g/dL (3.5-5.1); Alkaline Phosphatase 93 U/L (38-126); Anion Gap 7 mmol/L (8-16); Aspartate Amino Transferase 18 U/L (17-59); Bilirubin,Total 0.5 mg/dL (0.2-1.3); Blood Urea Nitrogen 17 mg/dL (9-20); Calcium 8.4 mg/dL (8.4-10.2); Carbon Dioxide 30 mmol/L (22-30); Chloride 98 mmol/L (98-107); Estimated CRCL calculation 51 ml/min; Estimated Glomerular Filt Rate > 60; Glucose 101 mg/dL (65-110); Phosphorus 3.6 mg/dL (2.5-4.5); Potassium 3.5 mmol/L (3.4-5.0); Sodium 135 mmol/L (137-145)
[2023-03-20 14:06] LABS: Appearance Urine Clear (Clear); Bacteria Urine None Seen /hpf; Bilirubin Urine 1+ (Negative); Blood Urine Negative (Negative); Color Urine Dark Yellow (Yellow); Glucose Urine UA Negative (Negative); Ketones Urine Trace mg/dL (Negative); Leukocyte Esterase Ur Trace LEU/UL (Negative); Nitrate Urine Negative (Negative); Non Pathogenic Casts 0-2; Protein Urine 1+ mg/dL (Negative); RBC Urine 0-2 /hpf (0-2); Specific Grav Ur 1.024 (1.001-1.035); Squamous Epithelial Cell Urine None seen /hpf (Few); WBC Urine 0-5 /hpf; pH Urine 5.5 (5.0-9.0)
--- NOTE | 2023-03-20 14:09 | ED.WEAKNESS ---
HPI - Weakness General Chief complaint: Weakness Stated complaint: weight loss, pain with breathing Time Seen by Provider: 03/20/23 12:21 History of Present Illness HPI Narrative: This is a 78-year-old male, with past history of Parkinson's, who presents to the emergency department complaining of chronic, worsening generalized weakness. He states this has been going on for the past several weeks, worsening in the last few days. He denies any focal weakness, or shortness of breath, though does complain of some chest tenderness with deep breathing, described as a pulling sensation. He denies cough, bleeding, nausea or vomiting. He states he has had a decreased appetite Related Data Home Medications Medication Instructions Recorded Confirmed amantadine HCl 100 mg tablet 100 mg PO TID 02/14/20 03/13/23 terbinafine HCl 250 mg tablet 250 mg PO DAILY 02/24/22 03/13/23 venlafaxine 150 mg 150 mg PO BID 08/27/22 03/13/23 capsule,extended release 24 hr propranolol 20 mg tablet 20 mg PO Q12H 09/24/22 03/13/23 quetiapine 100 mg tablet 100 mg PO QHS 09/24/22 03/13/23 carbidopa 25 mg-levodopa 100 mg 0.5 tablet PO Q3-4H 11/17/22 03/13/23 tablet carbidopa 50 mg-levodopa 200 1 tablet PO Q3-4D 11/17/22 03/13/23 mg-entacapone 200 mg tablet levothyroxine 50 mcg tablet 50 mcg PO QAM 11/17/22 03/13/23 (Synthroid) sennosides 15 mg tablet (Perdiem 15 mg PO HS 11/17/22 03/13/23 Overnight Relief) Allergies Allergy/AdvReac Type Severity Reaction Status Date / Time No Known Allergies Allergy Verified 03/20/23 12:30 Review of Systems Review of Systems: CONSTITUTIONAL: Denies fever, chills, or sweats. Reduced appetite, fatigue CARDIOVASCULAR: Denies chest pain, palpitations, or edema. RESPIRATORY: Denies cough or dyspnea. GASTROINTESTINAL: Denies abdominal pain, nausea, vomiting, or diarrhea. GENITOURINARY: Denies dysuria or hematuria. SKIN: Denies rash or itching. MUSCULOSKELETAL: Denies back pain, joint pain, or myalgia. NEUROLOGIC: Generalized weakness denies headache, numbness, dizziness, PSYCHIATRIC: Denies anxiety or depression. [facility] Past Medical History Medical History Anemia Anxiety Arthritis Chronic constipation Chronic neck pain Colonic polyp Depression Epistaxis Hard of hearing HTN (hypertension) Hyperlipidemia, unspecified Hypothyroidism, unspecified IFG (impaired fasting glucose) Parkinson's disease Rosacea Surgical History Surgical History Cataract extraction status With lens implants H/O foot surgery 02/17/2020 and then about 8 years ago he had surgery on that right foot History of penile implant Status post hernia repair Family History Family History Father Family history of coronary artery disease Mother Family history of coronary artery disease Sibling Family history of coronary artery disease Social History Social History Social History: 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 He lives with his Olinda who is his durable power finance attorney for healthcare. He desires to be a full code. They have no biological children but adopted 9 foster children. They had over 30 some foster children throughout their life. Patient desires to be a full code. He does not drink or smoke or use marijuana or drugs. Smoking status: Never smoker Second hand tobacco smoke exposure: No Alcohol intake: never Substance use: never Substance use type: does not use Lack of Transportation: No Lack of Food: Never True Current Housing: I Have Housing Concerned About Future Housing: No Difficulty Paying Gas/Electric Bills: No Difficulty Paying for Meds: No Currently Unemployed: No Education: Master's Degree or Higher Difficulty w/ Childcare or Family Care: No Latisha
[2023-03-20 14:12] LABS: Add Urine Microscopic? YES
[2023-03-20] MEDS: AZITHROMYCIN 500 MG/NS 250 ML 500 MG/250 ML BAG 250 MG IVPB (14:59)
--- NOTE | 2023-03-20 15:54 | PM.IMHP ---
H&P: HPI History of Present Illness Date/Time: 03/20/23 16:45 Chief Complaint: Multiple complaints. Narrative: This is a very pleasant 78-year-old male with Parkinson's disease, anemia, depression, hypothyroidism, and hyperlipidemia who presented to the emergency department via private vehicle from home for evaluation of multiple complaints. The patient provides the following history. He has not been feeling well for nearly 2 weeks with symptoms to include a subjective fever, nonproductive cough, pleuritic pain in the mid chest, poor appetite related to food not tasting the same, fatigue, and mild shortness of breath with exertion. He has been sleeping more than he is awake the last 5 days and he has become increasingly weak. He has occasional lightheadedness and dizziness though that is not necessarily new for him and he does have a history of falls. On exam he is extremely thin and he reports losing about 50 lb over the year but he has not noticed any significant weight loss more recently. He endorses dysphagia with liquids, solids, and pills though he cannot recall a time when he aspirated, recently anyway. His oral intake is poor due to the dysphagia in addition to the fact that he had all of his teeth pulled in the last several months due to ongoing infection issues. He denies syncope, near syncope, headache, sinus congestion, sore throat, exertional chest pain, vomiting, diarrhea, and dysuria. He denies lower extremity edema and calf pain. He has no history of venous thromboembolism. He was afebrile on arrival to the emergency department with stable blood pressures. CT of the chest, abdomen, and pelvis in the ED showed pneumonia involving the right middle lobe, lingula, and lower lobes with a cavitation in the left lower lobe. He was given doses of azithromycin, ceftriaxone, and vancomycin in the ED and he is being admitted in this setting for further antibiotics. Review of Systems Review of Systems: Twelve systems were reviewed and are negative except for as per HPI. [facility] Past Medical History Medical History (Updated 03/20/23 @ 21:49 by Sussy Freeman PA-C) Anemia Anxiety Arthritis Chronic constipation Chronic neck pain Colonic polyp Depression Hyperlipidemia Hypertension Hypothyroidism Kidney stones Parkinson's disease Rosacea Vitamin D deficiency Surgical History Surgical History (Updated 03/20/23 @ 21:35 by Sussy Freeman PA-C) History of cataract extraction with lens replacement History of colonoscopy with polypectomy History of foot surgery History of hernia repair History of lithotripsy History of penile implant Family History Family History Father Family history of coronary artery disease Mother Family history of coronary artery disease Sibling Family history of coronary artery disease Social History Social History (Updated 03/20/23 @ 21:37 by Sussy Freeman PA-C) Social History: Surrogate medical decision maker: [place] Donovan, spouse. Code status: Full code. Smoking status: Never smoker Second hand tobacco smoke exposure: No Alcohol intake: never Substance use: never Substance use type: does not use Lack of Transportation: No Lack of Food: Never True Current Housing: I Have Housing Concerned About Future Housing: No Difficulty Paying Gas/Electric Bills: No Difficulty Paying for Meds: No Currently Unemployed: No Education: Master's Degree or Higher Difficulty w/ Childcare or Family Care: No Living arrangements: with family Additional living arrangements comments: . He and his adopted 9 children and have fostered many more over the years. 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 Spiritual care concerns: No Meds Home Medications and Allergies Home Medications Medication Instructions Recorded Confirmed Type amantadin
[2023-03-20] MEDS: VANCOMYCIN 1,250 MG/NS 250 ML 1,250 MG/250 ML BAG 166.67 MG IVPB (16:05)
[2023-03-20 22:20] LABS: Iron 28 ug/dL (49-181)
[2023-03-20 22:29] LABS: Percent Iron Saturation 12 % (20-50)
[2023-03-20] MEDS: PROPRANOLOL HCL 20 MG TABLET PO (23:01)
[2023-03-20] MEDS: AMPICILLIN SULB 1.5 GM/NS 50ML 1.5 GM/50 ML VIAL IVPB (23:07)
[2023-03-20] MEDS: QUEtiapine FUMARATE 100 MG TABLET PO (23:07)
[2023-03-20 23:27] LABS: Folic Acid 8.9 ng/mL (2.76->20)
[2023-03-21] VITALS (7 sets, daily range): BP systolic 114–133; BP diastolic 64–77; PULSE 58–85; RESP 16–24; TEMP 36.2–36.7; O2SAT 90–100
[2023-03-21] MEDS: CARBIDOPA/LEVODOPA 25/100 MG TABLET 2 TABLET PO ×5 (05:46→20:44)
[2023-03-21] MEDS: AMPICILLIN SULB 1.5 GM/NS 50ML 1.5 GM/50 ML VIAL IVPB (05:46)
[2023-03-21] MEDS: ENTACAPONE 200 MG TABLET PO ×5 (05:47→20:43)
[2023-03-21] MEDS: CARBIDOPA/LEVODOPA 12.5/50 MG TABLET 1 TABLET PO ×5 (05:47→20:43)
[2023-03-21] MEDS: LEVOTHYROXINE SODIUM 50 MCG TABLET PO (05:47)
[2023-03-21 06:28] LABS: Basophils Percent Auto 0.3 % (0.2-1.2); Eosinophils Absolute Auto 0.2 K/mm3 (0-0.3); Eosinophils Percent Auto 1.8 % (0-4.4); Hematocrit 34.9 % (42.0-52.0); Hemoglobin 11.3 g/dL (14.0-18.0); Immature Granulocyte Absolute 0.06 K/mm3 (0.00-0.031); Immature Granulocyte Percent A 0.5 % (0-0.5); Lymphocytes Absolute Auto 0.67 K/mm3 (0.9-3.2); Lymphocytes Percent Auto 5.6 % (18.3-44.2); Mean Corpuscular HGB Conc 32.4 g/dl (32-36); Mean Corpuscular Hemoglobin 29.8 pg (26-34); Mean Corpuscular Volume 92.1 fl (80-100); Mean Platelet Volume 8.6 fl (7.4-10.4); Monocytes Absolute Auto 1.1 K/mm3 (0.1-0.6); Monocytes Percent Auto 8.9 % (2.6-8.5); Neutrophils Absolute Auto 9.9 K/mm3 (1.3-6.7); Neutrophils Percent Auto 82.9 % (45.5-73.1); Platelet Count Result 369 k/mm3 (150-375); Red Blood Count 3.79 M/mm3 (4.6-6.20); Red Cell Distribution Width 12.1 % (11.5-14.5)
[2023-03-21 06:40] LABS: Anion Gap 5 mmol/L (8-16); Blood Urea Nitrogen 15 mg/dL (9-20); Calcium 8.5 mg/dL (8.4-10.2); Carbon Dioxide 31 mmol/L (22-30); Chloride 99 mmol/L (98-107); Estimated CRCL calculation 58 ml/min; Estimated Glomerular Filt Rate > 60; Glucose 98 mg/dL (65-110); Potassium 3.9 mmol/L (3.4-5.0); Sodium 135 mmol/L (137-145)
[2023-03-21] MEDS: AMANTADINE HCL 100 MG CAPSULE PO ×3 (10:06→17:38)
[2023-03-21] MEDS: VENLAFAXINE HCL XR 75 MG CAP.ER.24H 150 MG PO ×2 (10:06→17:39)
[2023-03-21] MEDS: PROPRANOLOL HCL 20 MG TABLET PO ×2 (10:07→20:44)
[2023-03-21] MEDS: ENOXAPARIN 40 MG/0.4 ML SYRINGE SUB-Q (10:08)
--- NOTE | 2023-03-21 10:30 | PM.IMPN ---
Progress Note: A&P Assessment and Plan (1) Pneumonia: Code(s): J18.9 - Pneumonia, unspecified organism Status: Acute (2) Dysphagia: Code(s): R13.10 - Dysphagia, unspecified Status: Acute (3) Parkinson's disease: Code(s): G20 - Parkinson's disease Status: Chronic (4) Chronic anemia: Code(s): D64.9 - Anemia, unspecified Status: Acute (5) Hypothyroidism: Code(s): E03.9 - Hypothyroidism, unspecified Status: Acute (6) Severely underweight adult: Code(s): R63.6 - Underweight Status: Acute (7) Cavitary lesion of lung: Code(s): J98.4 - Other disorders of lung Status: Acute (8) Multifocal pneumonia: Code(s): J18.9 - Pneumonia, unspecified organism Status: Acute Plan Multifocal pneumonia, lung cavity lesion Patient has leukocytosis, afebrile, now patient is on, azithromycin vancomycin and Unasyn Suspecting aspiration Aspiration precaution Request speech therapist evaluation Consult quality assurance inspector for evaluation and treatment Hypothyroidism Continue Synthroid 50 mcg daily p.o. Hypertension Continue prednisone 20 mg b.i.d. p.o. Parkinson disease Continue Sinemet p.o. at home does Controlled Dysphagia Patient has trouble with swallowing frequently l consult GI if patient has dysphagia History of esophageal webbing due to ongoing GERD Start. Pureed modified diet Diet per speech evaluation Subjective Date/time seen: 03/21/23 10:30 Exam Narrative: General: Frail, cachectic appearing gentleman the semi-Argueta position in bed. Weight: 54.5 kg. BMI: 15.0. HEENT: PERRL, EOMI. Sclera anicteric. Tacky mucous membranes. Edentulous. Neck: Supple. No JVD or lymphadenopathy. Respiratory: Respirations are nonlabored and he is speaking in full sentences. Bibasilar crackles, left greater than right. Cardiovascular: Regular rate and rhythm with S1-S2. Gastrointestinal: Abdomen is soft, scaphoid, and nontender with positive bowel sounds. Skin: Warm and dry. Extremities: No cyanosis, clubbing, or edema. Radial pulses palpable, pedal pulses diminished but posterior tibialis pulses were palpable. Feet are cool but perfused. Neurological: Alert. Cranial nerves 2-12 are grossly intact. Fine tremors of the head and hands. Speech is soft and slow. He is generally weak with diffuse muscle atrophy. He is generally weak without obvious focal deficits. Psychiatric: Pleasant and cooperative with flat mood and normal affect. Objective Data Vital Signs Vital Signs: Vital Signs - 24 hr 03/20/23 11:58 03/20/23 14:37 03/20/23 14:58 Temperature 97.9 F Pulse Rate 65 65 61 Respiratory Rate 18 21 H 22 H Blood Pressure 115/61 123/82 135/80 Pulse Oximetry 99 99 97 Oxygen Delivery Room Air 03/20/23 16:07 03/20/23 18:15 03/20/23 20:43 Temperature 99.3 F Pulse Rate 67 77 72 Respiratory Rate 20 18 18 Blood Pressure 125/85 116/71 123/71 Pulse Oximetry 100 100 100 Oxygen Delivery 03/20/23 23:01 03/21/23 05:41 03/21/23 10:07 Temperature 97.7 F Pulse Rate 70 75 77 Respiratory Rate 20 Blood Pressure 124/77 Pulse Oximetry 97 Oxygen Delivery 03/21/23 08:00 Temperature 97.2 F L Pulse Rate 77 Respiratory Rate 16 Blood Pressure 114/65 Pulse Oximetry 93 Oxygen Delivery Intake/Output Intake/Output: Intake & Output 03/18/23 03/19/23 03/20/23 03/21/23 23:59 23:59 23:59 23:59 Intake Total 600 460 Output Total 200 200 Balance 400 260 Meds/Results Medications: Active Medications Generic Name Dose Route Start Last Admin Trade Name Freq PRN Reason Stop Dose Admin Amantadine HCl 100 mg 03/21/23 09:00 03/21/23 10:06 Amantadine Hcl 100 Mg Capsule PO 100 mg TID EVRN Administration Carbidopa/Levodopa 1 tablet 03/21/23 06:00 03/21/23 10:06 Carbidopa/Levodopa 12.5/50 Mg Tablet PO 1 tablet 0600,0930,1300,1630,2000 VERN Administration Carbidopa/Levo
[2023-03-21] MEDS: AMPICILLIN SULB 3 GM/NS 100 ML 3 GM/100 ML VIAL IVPB ×2 (11:18→17:38)
--- NOTE | 2023-03-21 12:59 | PM.CNPUL ---
Assessment and Plan Assessment and plan (1) Cavitary pneumonia: Code(s): J18.9 - Pneumonia, unspecified organism; J98.4 - Other disorders of lung Status: Acute Assessment and Plan: 78-year-old man with a history of Parkinson's, 6 month history of worsening swallow with difficulty swallowing liquids, solids and pills with occasional coughing and aspiration. Patient presents to the emergency department with subjective fevers, cough, weight loss and chest pain with white blood cell count of 13.2 and a chest x-ray with multifocal pneumonia in the right middle lobe, right lower lobe and lingula infiltrates with dense consolidation with necrotic cavitary pneumonia in the left lower lobe. He has no putrid breath or phlegm. He is a nonsmoker with no second hand smoke exposure and no occupational exposures. I suspect the patient has aspiration pneumonia with lung abscess with necrosis and cavitation. Plan: No blood cultures were ordered in the emergency department and I have ordered them this morning after antibiotics have been initiated. MRSA and a nasal screen has been sent. Sputum has been ordered although he is making no phlegm. I agree with vancomycin and Unasyn and I have increased the dose of Unasyn to 3 g Q 6 hours. Will follow the patient clinically and radiographically to assess for response to therapy. He does have quite extensive necrosis with abscess formation and I am hoping that antibiotics alone will provide adequate treatment. Barium swallow has been ordered. Discussed with Dr. Petit, will follow with you History of Present Illness History of Present Illness Consult date: 03/21/23 Chief complaint: Pneumonia Narrative: 03/21/2023: This is a new pulmonary consult for left lower lobe cavitary pneumonia. 78-year-old man with a history of Parkinson's, hyperlipidemia, hypothyroidism, rosacea, constipation, status post endoscopic sinus surgery on 11/25/2022, status post teeth removal 6 months ago with dentures. Patient is a never smoker and not exposed to any secondhand smoke. 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 On a good day patient can walk a quarter of a mi. he is on no respiratory medicines. Patient tells me that 12 months ago his Parkinson's started to worsen. Six months ago he had trouble swallowing with no pain. He has had coughing for the last 1-2 months with no phlegm and no hemoptysis. Two weeks ago patient started to experience substernal chest pain and left-sided chest pain. On 03/12/2023 the patient presented to his PCP office with weight loss of 20 lb in the last 6 months, decreased appetite thought to be related to his dentures, no appetite and trouble swallowing his foods and pills. His room air saturations were 95%. CT chest abdomen pelvis were ordered but not completed. The patient presented to the emergency department on 03/20 and the patient states that over the last 2 weeks he has had worsening fatigue, weight loss, subjective fevers, cough, fatigue that worsened over the last few days. S blood pressure was 115/61, temperature 97.9?, respiratory rate 18, room air saturations 99-100%. White blood cell count 13.2 with 1.4% eosinophils, creatinine 0.8, bicarb 30, TSH 2.[address] abdomen and pelvis demonstrating infiltrate right middle lobe, lingula, right lower lobe and left lower lobe dense consolidation with areas of necrotic cavitation. Minimal left pleural effusion. The patient was treated for lung abscess initially with ceftriaxone and azithromycin and that was changed to vancomycin and Zosyn. 03/21 the patient tells me he does have trouble swallowing liquids, solids and pills and that a tongue times he does aspirate and cough. He could not quantitate exactly when the last time this happened. He denies seizures or passing out. He is edentulous. He denies vomiting. Currently the patient
--- NOTE | 2023-03-21 15:47 | PCSTNOTE ---
Modified barium swallow study. Trials of thin, mildly thick, and pureed consistencies were given. Solids were not trialed due to patient's new dentures not being worn consistently yet. Patient did not wear them to this study. Findings include reduced lingual movement, reduced laryngeal elevation, reduced pharyngeal squeeze, residue in vallaculae, pyriform sinuses, and pharyngeal wall reduced with multiple swallows. Recommendation: nectar thickened liquids and minced moist diet. No further speech therapy is recommended at this time. Swallowing precaution recommendations placed in medical chart and discussed with daughter and son-in-law present at bedside. Thank you for the referral of this patient.
[2023-03-21] MEDS: VANCOMYCIN 750 MG/NS 250 ML 750 MG/250 ML BAG 250 MG IVPB (16:01)
[2023-03-21] MEDS: QUEtiapine FUMARATE 100 MG TABLET PO (20:43)
[2023-03-22] MEDS: AMPICILLIN SULB 3 GM/NS 100 ML 3 GM/100 ML VIAL IVPB ×4 (00:10→18:15)
[2023-03-22 06:00] VITALS: BP 122/64; PULSE 63; RESP 16; TEMP 36.8; O2SAT 96
[2023-03-22] MEDS: CARBIDOPA/LEVODOPA 12.5/50 MG TABLET 1 TABLET PO ×5 (06:17→20:53)
[2023-03-22] MEDS: LEVOTHYROXINE SODIUM 50 MCG TABLET PO (06:17)
[2023-03-22] MEDS: CARBIDOPA/LEVODOPA 25/100 MG TABLET 2 TABLET PO ×5 (06:17→20:54)
[2023-03-22] MEDS: ENTACAPONE 200 MG TABLET PO ×5 (06:17→20:54)
[2023-03-22 06:35] LABS: Estimated CRCL calculation 58 ml/min; Estimated Glomerular Filt Rate > 60
--- NOTE | 2023-03-22 08:42 | PM.PNPUL ---
Progress Note: A&P Assessment and Plan (1) Cavitary pneumonia: Code(s): J18.9 - Pneumonia, unspecified organism; J98.4 - Other disorders of lung Status: Acute Assessment and Plan: 78-year-old man with a history of Parkinson's, 6 month history of worsening swallow with difficulty swallowing liquids, solids and pills with occasional coughing and aspiration. Patient presents to the emergency department with subjective fevers, cough, weight loss and chest pain with white blood cell count of 13.2 and a chest x-ray with multifocal pneumonia in the right middle lobe, right lower lobe and lingula infiltrates with dense consolidation with necrotic cavitary pneumonia in the left lower lobe. He has no putrid breath or phlegm. He is a nonsmoker with no second hand smoke exposure and no occupational exposures. 03/21 I suspect the patient has aspiration pneumonia with lung abscess with necrosis and cavitation. Plan: No blood cultures were ordered in the emergency department and I have ordered them this morning after antibiotics have been initiated. MRSA and a nasal screen has been sent. Sputum has been ordered although he is making no phlegm. I agree with vancomycin and Unasyn and I have increased the dose of Unasyn to 3 g Q 6 hours. Will follow the patient clinically and radiographically to assess for response to therapy. He does have quite extensive necrosis with abscess formation and I am hoping that antibiotics alone will provide adequate treatment. Barium swallow has been ordered. 03/22 patient said that he slept well and is hungry today. He still has some substernal chest pain and left-sided chest pain worse when he takes a deep breath in. He is afebrile. Room air saturations are 98%. Modified barium swallow yesterday did recommended nectar thick and minced moist food. Plan: Continue Unasyn 3 g q.6 hours and vancomycin per pharmacy, day 3 both. Blood cultures and MRSA swab pending. I will check a CBC in the morning to follow his white blood cell count and a chest x-ray in the morning to assess the left lung infiltrate. Discussed with Rafita Flores, will follow with you Subjective Date/time seen: 03/22/23 08:42 Interval history: 03/21/2023: This is a new pulmonary consult for left lower lobe cavitary pneumonia.? 78-year-old man with a history of Parkinson's, hyperlipidemia, hypothyroidism, rosacea, constipation, status post endoscopic sinus surgery on 11/25/2022, status post teeth removal 6 months ago with dentures. Patient is a never smoker and not exposed to any secondhand smoke.? 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 On a good day patient can walk a quarter of a mi. he is on no respiratory medicines. Patient tells me that 12 months ago his Parkinson's started to worsen.? Six months ago he had trouble swallowing with no pain.? He has had coughing for the last 1-2 months with no phlegm and no hemoptysis.? Two weeks ago patient started to experience substernal chest pain and left-sided chest pain.? On 03/12/2023 the patient presented to his PCP office with weight loss of 20 lb in the last 6 months, decreased appetite thought to be related to his dentures, no appetite and trouble swallowing his foods and pills.? His room air saturations were 95%.? CT chest abdomen pelvis were ordered but not completed. The patient presented to the emergency department on 03/20 and the patient states that over the last 2 weeks he has had worsening fatigue, weight loss, subjective fevers, cough, fatigue that worsened over the last few days.? S blood pressure was 115/61, temperature 97.9?, respiratory rate 18, room air saturations 99-100%.? White blood cell count 13.2 with 1.4% eosinophils, creatinine 0.8, bicarb 30, TSH 2.[address] abdomen and pelvis demonstrating infiltrate right middle lobe, lingula, right lower lobe and left lower lobe dense conso
[2023-03-22 09:03] VITALS: PULSE 68
[2023-03-22] MEDS: AMANTADINE HCL 100 MG CAPSULE PO ×3 (09:03→17:35)
[2023-03-22] MEDS: PROPRANOLOL HCL 20 MG TABLET PO ×2 (09:03→20:54)
[2023-03-22] MEDS: VENLAFAXINE HCL XR 75 MG CAP.ER.24H 150 MG PO ×2 (09:04→17:35)
--- NOTE | 2023-03-22 11:25 | WPDGICN ---
Assessment and Plan Assessment and plan (1) Dysphagia: Code(s): R13.10 - Dysphagia, unspecified Status: Acute Assessment and Plan: he has had difficulty swallowing pills for some time. He says that 1 time he was taking over 20 pills a day. It would seem to get hung up in his throat. He must eat slowly but food seems to go down. He does not think it goes into his airway although chest x-ray shows severe pneumonia on the left lower lobe with cavitation and also in the right lobe middle lobe and lingula and lower lobes. This is suggestive of aspiration (2) Severely underweight adult: Code(s): R63.6 - Underweight Status: Acute Assessment and Plan: he has lost 50 lb in the past year. (3) Cavitary pneumonia: Code(s): J18.9 - Pneumonia, unspecified organism; J98.4 - Other disorders of lung Status: Acute Assessment and Plan: Currently on antibiotics (4) Hypothyroidism: Code(s): E03.9 - Hypothyroidism, unspecified Status: Acute Assessment and Plan: takes thyroid supplement, levothyroxine 50 mcg per day. TSH is in normal range (5) Parkinson's disease: Code(s): G20 - Parkinson's disease Status: Chronic Assessment and Plan: he has been on Sinemet for several years. he suspected the Parkinson's his the main reason he is so debilitated and going downhill Plan schedule him for an EGD tomorrow morning. I told he may need dilatation 5 find a stricture. I also discussed with him feeding tube given the fact he is malnourished and has difficulty swallowing. He says that he is okay with that and added whenever you think you need to do. I explained that a feeding tube can be temporary. I told that there are some risks such as bleeding infection or perforation her low they are uncommon GI Consult Note Consult date/time: 03/22/23 11:25 HPI: Yosvany Donovan is a 78 year old male with Parkinson's disease and hypothyroidism who came to emergency room with complaints of not feeling well for the past few weeks the having a cough S of well as pleuritic chest pain. He states that his appetite is poor because food does not taste well he states that he has been going downhill for the past year has thought about calling me in a couple of occasions. He lost about 50 lb in the past year. Consequently states that it is even difficult for him to walk because his muscles are becoming weak. He does not eat very much because it takes more while. He had issues with his teeth falling out and had to have the rest of them removed. He does have dentures now but is still difficult for him to swallow. A modified barium swallow was done that showed some trace aspiration and was advised that he drink only thickened liquids. Review of Systems Review of Systems: All systems reviewed & are unremarkable except as noted in HPI and below [facility] Past Medical History Medical History (Updated 03/21/23 @ 13:09 by Shin Wolfe MD) Anemia Anxiety Arthritis Chronic constipation Chronic neck pain Colonic polyp Depression Hyperlipidemia Hypertension Hypothyroidism Kidney stones Parkinson's disease Rosacea Vitamin D deficiency Surgical History Surgical History (Updated 03/20/23 @ 21:35 by Sussy Freeman PA-C) History of cataract extraction with lens replacement History of colonoscopy with polypectomy History of foot surgery History of hernia repair History of lithotripsy History of penile implant Family History Family History Father Family history of coronary artery disease Mother Family history of coronary artery disease Sibling Family history of coronary artery disease Social History Social History (Updated 03/20/23 @ 21:37 by Sussy Freeman PA-C) Social History: Surrogate medical decision maker: Olinda Donovan, spouse. Code status: Full code. Smoking status: [place]
--- NOTE | 2023-03-22 11:49 | PCPTNOTE ---
Attempted to do evaluation, but with Occupational therapy will see in PM.
--- NOTE | 2023-03-22 12:38 | PM.IMPN ---
Progress Note: A&P Assessment and Plan (1) Pneumonia: Code(s): J18.9 - Pneumonia, unspecified organism Status: Acute (2) Dysphagia: Code(s): R13.10 - Dysphagia, unspecified Status: Acute (3) Parkinson's disease: Code(s): G20 - Parkinson's disease Status: Chronic (4) Chronic anemia: Code(s): D64.9 - Anemia, unspecified Status: Acute (5) Hypothyroidism: Code(s): E03.9 - Hypothyroidism, unspecified Status: Acute (6) Severely underweight adult: Code(s): R63.6 - Underweight Status: Acute (7) Cavitary lesion of lung: Code(s): J98.4 - Other disorders of lung Status: Acute (8) Multifocal pneumonia: Code(s): J18.9 - Pneumonia, unspecified organism Status: Acute Plan Multifocal pneumonia, lung cavity lesion Patient has leukocytosis, afebrile, Patient received azithromycin vancomycin and Unasyn Suspecting aspiration Aspiration precaution Requested speech therapist evaluation, speech therapy recommended pureed diet Consult perinatal director for evaluation and treatment, changed to Unasyn and vancomycin IV Hypothyroidism Continue Synthroid 50 mcg daily p.o. Hypertension Continue prednisone 20 mg b.i.d. p.o. Parkinson disease Continue Sinemet p.o. at home does Controlled Dysphagia Patient has trouble with swallowing frequently l consult GI if patient has dysphagia History of esophageal webbing due to ongoing GERD Start. Pureed modified diet Diet per speech evaluation Subjective Date/time seen: 03/22/23 12:38 Interval history: I saw exam patient today. Patient feels better today, no new issue even over the night, patient has a bilateral pleural chest pain, worse with deep breaths and cough. Patient is afebrile, hemodynamically stable, leukocytosis is improving Exam Narrative: General: Frail, cachectic appearing gentleman the semi-Argueta position in bed. Weight: 54.5 kg. BMI: 15.0. HEENT: PERRL, EOMI. Sclera anicteric. Tacky mucous membranes. Edentulous. Neck: Supple. No JVD or lymphadenopathy. Respiratory: Respirations are nonlabored and he is speaking in full sentences. Bibasilar crackles, left greater than right. Cardiovascular: Regular rate and rhythm with S1-S2. Gastrointestinal: Abdomen is soft, scaphoid, and nontender with positive bowel sounds. Skin: Warm and dry. Extremities: No cyanosis, clubbing, or edema. Radial pulses palpable, pedal pulses diminished but posterior tibialis pulses were palpable. Feet are cool but perfused. Neurological: Alert. Cranial nerves 2-12 are grossly intact. Fine tremors of the head and hands. Speech is soft and slow. He is generally weak with diffuse muscle atrophy. He is generally weak without obvious focal deficits. Psychiatric: Pleasant and cooperative with flat mood and normal affect. Objective Data Vital Signs Vital Signs: Vital Signs - 24 hr 03/21/23 14:00 03/21/23 20:44 03/21/23 21:19 Temperature 97.3 F L 98.0 F Pulse Rate 58 L 85 85 Respiratory Rate 16 24 H Blood Pressure 125/69 133/64 Pulse Oximetry 100 90 03/22/23 06:00 03/22/23 09:03 Temperature 98.3 F Pulse Rate 63 68 Respiratory Rate 16 Blood Pressure 122/64 Pulse Oximetry 96 Intake/Output Intake/Output: Intake & Output 03/19/23 03/20/23 03/21/23 03/22/23 23:59 23:59 23:59 23:59 Intake Total 600 1450 660 Output Total 200 775 Balance 400 675 660 Meds/Results Medications: Active Medications Generic Name Dose Route Start Last Admin Trade Name Freq PRN Reason Stop Dose Admin Amantadine HCl 100 mg 03/21/23 09:00 03/22/23 09:03 Amantadine Hcl 100 Mg Capsule PO 100 mg TID VERN Administration Carbidopa/Levodopa 1 tablet 03/21/23 06:00 03/22/23 09:04 Carbidopa/Levodopa 12.5/50 Mg Tablet PO 1 tablet 0600,0930,1300,1630,2000 VERN Administration Carbidopa/Levodopa 2 tablet 03/21/23 06:00 03/22/23 09:03 Carbidopa/Levodopa 25/10
[2023-03-22 14:00] VITALS: BP 140/72; PULSE 64; RESP 18; TEMP 36.7; O2SAT 92
[2023-03-22 14:07] VITALS: O2SAT 96
[2023-03-22 16:24] LABS: Vancomycin Trough < 5.0 ug/mL (10.0-20.0)
[2023-03-22] MEDS: VANCOMYCIN 1,250 MG/NS 250 ML 1,250 MG/250 ML BAG 166.67 MG IVPB (17:09)
[2023-03-22 19:21] VITALS: BP 127/73; PULSE 65; RESP 16; TEMP 36.8; O2SAT 100
[2023-03-22] MEDS: QUEtiapine FUMARATE 100 MG TABLET PO (20:53)
[2023-03-22 20:54] VITALS: PULSE 65
[2023-03-22] MEDS: LORazepam INJ (*CRX) 2 MG/ML VIAL 0.5 MG IV PUSH (20:55)
[2023-03-23] VITALS (9 sets, daily range): BP systolic 120–157; BP diastolic 69–85; PULSE 50–73; RESP 16–23; TEMP 36.4–37.3; O2SAT 93–100; BMI 15.5
[2023-03-23] MEDS: AMPICILLIN SULB 3 GM/NS 100 ML 3 GM/100 ML VIAL IVPB ×4 (00:19→17:46)
[2023-03-23] MEDS: VANCOMYCIN 1,250 MG/NS 250 ML 1,250 MG/250 ML BAG 166.67 MG IVPB ×2 (05:36→18:26)
[2023-03-23 06:11] LABS: Basophils Percent Auto 0.6 % (0.2-1.2); Eosinophils Absolute Auto 0.3 K/mm3 (0-0.3); Hematocrit 32.5 % (42.0-52.0); Hemoglobin 10.6 g/dL (14.0-18.0); Immature Granulocyte Absolute 0.02 K/mm3 (0.00-0.031); Immature Granulocyte Percent A 0.3 % (0-0.5); Lymphocytes Absolute Auto 0.61 K/mm3 (0.9-3.2); Lymphocytes Percent Auto 9.3 % (18.3-44.2); Mean Corpuscular HGB Conc 32.6 g/dl (32-36); Mean Corpuscular Hemoglobin 30.4 pg (26-34); Mean Corpuscular Volume 93.1 fl (80-100); Mean Platelet Volume 8.8 fl (7.4-10.4); Monocytes Absolute Auto 0.8 K/mm3 (0.1-0.6); Neutrophils Absolute Auto 4.8 K/mm3 (1.3-6.7); Neutrophils Percent Auto 73.8 % (45.5-73.1); Platelet Count Result 353 k/mm3 (150-375); Red Blood Count 3.49 M/mm3 (4.6-6.20); Red Cell Distribution Width 12.3 % (11.5-14.5); White Blood Count 6.6 K/mm3 (4.5-10.0)
[2023-03-23 06:26] LABS: Estimated CRCL calculation 60 ml/min; Estimated Glomerular Filt Rate > 60
--- NOTE | 2023-03-23 08:56 | PM.IMPN ---
Progress Note: A&P Assessment and Plan (1) Pneumonia: Code(s): J18.9 - Pneumonia, unspecified organism Status: Acute (2) Dysphagia: Code(s): R13.10 - Dysphagia, unspecified Status: Acute (3) Parkinson's disease: Code(s): G20 - Parkinson's disease Status: Chronic (4) Chronic anemia: Code(s): D64.9 - Anemia, unspecified Status: Acute (5) Hypothyroidism: Code(s): E03.9 - Hypothyroidism, unspecified Status: Acute (6) Severely underweight adult: Code(s): R63.6 - Underweight Status: Acute (7) Cavitary lesion of lung: Code(s): J98.4 - Other disorders of lung Status: Acute (8) Multifocal pneumonia: Code(s): J18.9 - Pneumonia, unspecified organism Status: Acute Plan Multifocal pneumonia, lung cavity lesion Patient has leukocytosis, afebrile, Patient received azithromycin vancomycin and Unasyn Suspecting aspiration Aspiration precaution Requested speech therapist evaluation, speech therapy recommended pureed diet Consult honing machine operator for evaluation and treatment, c/w Unasyn and vancomycin IV repeat CT scan on 03/25/23 to reassess left lower lobe abscess. Hypothyroidism Continue Synthroid 50 mcg daily p.o. Hypertension Continue prednisone 20 mg b.i.d. p.o. Parkinson disease Continue Sinemet p.o. at home does Controlled Dysphagia Patient has trouble with swallowing frequently l consult GI if patient has dysphagia History of esophageal webbing due to ongoing GERD Start. Pureed modified diet Diet per speech evaluation Subjective Date/time seen: 03/23/23 08:56 Interval history: I saw exam patient today. no new issue even over the night, patient has a bilateral pleural chest pain is better today. Patient is afebrile, hemodynamically stable, leukocytosis is improving Exam Narrative: General: Frail, cachectic appearing gentleman the semi-Argueta position in bed. Weight: 54.5 kg. BMI: 15.0. HEENT: PERRL, EOMI. Sclera anicteric. Tacky mucous membranes. Edentulous. Neck: Supple. No JVD or lymphadenopathy. Respiratory: Respirations are nonlabored and he is speaking in full sentences. Bibasilar crackles, left greater than right. Cardiovascular: Regular rate and rhythm with S1-S2. Gastrointestinal: Abdomen is soft, scaphoid, and nontender with positive bowel sounds. Skin: Warm and dry. Extremities: No cyanosis, clubbing, or edema. Radial pulses palpable, pedal pulses diminished but posterior tibialis pulses were palpable. Feet are cool but perfused. Neurological: Alert. not oriented x 2, likley base line generally weak without obvious focal deficits. Psychiatric: Pleasant and cooperative with flat mood and normal affect. Objective Data Vital Signs Vital Signs: Vital Signs - 24 hr 03/22/23 09:03 03/22/23 11:35 03/22/23 13:48 Temperature Pulse Rate 68 Respiratory Rate Blood Pressure Pulse Oximetry Oxygen Delivery Room Air Nasal Cannula Oxygen Flow Rate 2 03/22/23 14:07 03/22/23 14:00 03/22/23 19:21 Temperature 98.0 F 98.2 F Pulse Rate 64 65 Respiratory Rate 18 16 Blood Pressure 140/72 127/73 Pulse Oximetry 96 92 100 Oxygen Delivery Room Air Oxygen Flow Rate 03/22/23 20:54 03/23/23 05:54 Temperature 99.2 F Pulse Rate 65 50 L Respiratory Rate 16 Blood Pressure 143/78 H Pulse Oximetry 100 Oxygen Delivery Oxygen Flow Rate Intake/Output Intake/Output: Intake & Output 03/20/23 03/21/23 03/22/23 03/23/23 23:59 23:59 23:59 23:59 Intake Total 600 1450 1670 500 Output Total 200 775 150 Balance 356 018 5780 350 Meds/Results Medications: Active Medications Generic Name Dose Route Start Last Admin Trade Name Freq PRN Reason Stop Dose Admin Amantadine HCl 100 mg 03/21/23 09:00 03/23/23 08:04 Amantadine Hcl 100 Mg Capsule PO Not Given TID VERN Carbidopa/Levodopa 1 tablet 03/21/23 06:00 03/23/23 08:05 Carbi
--- NOTE | 2023-03-23 09:28 | PM.PNPUL ---
Progress Note: A&P Assessment and Plan (1) Cavitary pneumonia: Code(s): J18.9 - Pneumonia, unspecified organism; J98.4 - Other disorders of lung Status: Acute Assessment and Plan: 78-year-old man with a history of Parkinson's, 6 month history of worsening swallow with difficulty swallowing liquids, solids and pills with occasional coughing and aspiration. Patient presents to the emergency department with subjective fevers, cough, weight loss and chest pain with white blood cell count of 13.2 and a chest x-ray with multifocal pneumonia in the right middle lobe, right lower lobe and lingula infiltrates with dense consolidation with necrotic cavitary pneumonia in the left lower lobe. He has no putrid breath or phlegm. He is a nonsmoker with no second hand smoke exposure and no occupational exposures. 03/21 I suspect the patient has aspiration pneumonia with lung abscess with necrosis and cavitation. Plan: No blood cultures were ordered in the emergency department and I have ordered them this morning after antibiotics have been initiated. MRSA and a nasal screen has been sent. Sputum has been ordered although he is making no phlegm. I agree with vancomycin and Unasyn and I have increased the dose of Unasyn to 3 g Q 6 hours. Will follow the patient clinically and radiographically to assess for response to therapy. He does have quite extensive necrosis with abscess formation and I am hoping that antibiotics alone will provide adequate treatment. Barium swallow has been ordered. 03/22 patient said that he slept well and is hungry today. He still has some substernal chest pain and left-sided chest pain worse when he takes a deep breath in. He is afebrile. Room air saturations are 98%. Modified barium swallow yesterday did recommended nectar thick and minced moist food. Plan: Continue Unasyn 3 g q.6 hours and vancomycin per pharmacy, day 3 both. Blood cultures and MRSA swab pending. I will check a CBC in the morning to follow his white blood cell count and a chest x-ray in the morning to assess the left lung infiltrate. 03/23 patient states that he is breathing okay. He tells me that his substernal and left-sided chest pain is somewhat better. He is afebrile. White blood cell count 6.6. Chest x-ray with continued bibasilar infiltrates left greater than right and no focal consolidation. Plan: Patient is breathing at baseline on room air, leukocytosis has resolved, left-sided and substernal chest pain are improved and he remains afebrile. Chest x-ray with continue infiltrate, in my opinion minimal change. Unasyn 3 g q.6 and vancomycin per Pharmacy, day 4 both. MRSA swab negative. I prefer to continue vancomycin until repeat CT scan on 03/25/23 to reassess left lower lobe abscess. Will follow with you Subjective Date/time seen: 03/23/23 09:28 Interval history: 03/21/2023: This is a new pulmonary consult for left lower lobe cavitary pneumonia.? 78-year-old man with a history of Parkinson's, hyperlipidemia, hypothyroidism, rosacea, constipation, status post endoscopic sinus surgery on 11/25/2022, status post teeth removal 6 months ago with dentures. Patient is a never smoker and not exposed to any secondhand smoke.? 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 On a good day patient can walk a quarter of a mi. he is on no respiratory medicines. Patient tells me that 12 months ago his Parkinson's started to worsen.? Six months ago he had trouble swallowing with no pain.? He has had coughing for the last 1-2 months with no phlegm and no hemoptysis.? Two weeks ago patient started to experience substernal chest pain and left-sided chest pain.? On 03/12/2023 the patient presented to his PCP office with weight loss of 20 lb in the last 6 months, decreased appetite thought to be related to his dentures, no appetite and trouble swallowing his
--- NOTE | 2023-03-23 13:55 | PC.NURSE ---
Patient off of unit to GI lab
--- NOTE | 2023-03-23 13:55 | PCPTNOTE ---
Attempted to see patient for PT, however patient was leaving room for testing.
--- NOTE | 2023-03-23 14:11 | P.PNAN_ITS ---
Anes - Eval Final PreProcedure Day of Procedure 03/23/23 14:11 Patient weight: thin Heart: regular rate and rhythm Lungs: decreased breath sounds Airway: Mallampati scale class II Neurological: other (alert) Last oral intake: >/= 8 hours ASA classification: IV Emergent: no Anesthetic plan: proceed Anesthesia type and monitoring: general GIVS and standard monitoring Results Review: All pre-operative results and documents have been reviewed as part of the pre- operative evaluation. Informed Consent: The patient's anesthetic plan and its attendant risks and benefits were discussed with the patient/family/POA. Questions were solicited and answers provided to the satisfaction of the patient/family/POA.
[2023-03-23] MEDS: LACTATED RINGERS 1,000 ML 150 ML IV CONT (14:15)
--- NOTE | 2023-03-23 15:16 | PCPTNOTE ---
The patient treatment was not able to be completed on 03/23/2023 due to patient out of room for procedure. Will plan to continue treatment per plan of care.
--- NOTE | 2023-03-23 16:00 | PC.NURSE ---
Patient returned to unit from GI lab
[2023-03-24] VITALS (7 sets, daily range): BP systolic 98–131; BP diastolic 53–72; PULSE 57–80; RESP 16–18; TEMP 36.8–37.2; O2SAT 92–100
[2023-03-24] MEDS: AMPICILLIN SULB 3 GM/NS 100 ML 3 GM/100 ML VIAL IVPB ×5 (00:07→23:24)
[2023-03-24 04:26] LABS: Basophils Percent Auto 0.4 % (0.2-1.2); Eosinophils Absolute Auto 0.1 K/mm3 (0-0.3); Hematocrit 34.8 % (42.0-52.0); Hemoglobin 11.4 g/dL (14.0-18.0); Immature Granulocyte Absolute 0.04 K/mm3 (0.00-0.031); Immature Granulocyte Percent A 0.4 % (0-0.5); Lymphocytes Absolute Auto 0.75 K/mm3 (0.9-3.2); Lymphocytes Percent Auto 8.4 % (18.3-44.2); Mean Corpuscular HGB Conc 32.8 g/dl (32-36); Mean Corpuscular Hemoglobin 29.8 pg (26-34); Mean Corpuscular Volume 91.1 fl (80-100); Mean Platelet Volume 8.3 fl (7.4-10.4); Monocytes Absolute Auto 0.6 K/mm3 (0.1-0.6); Monocytes Percent Auto 6.6 % (2.6-8.5); Neutrophils Absolute Auto 7.4 K/mm3 (1.3-6.7); Neutrophils Percent Auto 83.2 % (45.5-73.1); Platelet Count Result 356 k/mm3 (150-375); Red Blood Count 3.82 M/mm3 (4.6-6.20); Red Cell Distribution Width 12.2 % (11.5-14.5)
[2023-03-24 04:38] LABS: CRP 8.1 mg/dL (<1.0)
[2023-03-24 04:48] LABS: Vancomycin Trough 20.8 ug/mL (10.0-20.0)
[2023-03-24] MEDS: ENTACAPONE 200 MG TABLET PO ×5 (05:12→20:27)
[2023-03-24] MEDS: CARBIDOPA/LEVODOPA 12.5/50 MG TABLET 1 TABLET PO ×5 (05:13→20:28)
[2023-03-24] MEDS: CARBIDOPA/LEVODOPA 25/100 MG TABLET 2 TABLET PO ×5 (05:13→20:27)
[2023-03-24] MEDS: LEVOTHYROXINE SODIUM 50 MCG TABLET PO (05:13)
[2023-03-24 05:20] LABS: Procalcitonin 0.2 ng/mL
[2023-03-24] MEDS: SODIUM CHLOR 3% 15 ML NEB (RESPIRATORY THERAPY) 6 ML INHALATION (05:57)
--- NOTE | 2023-03-24 06:00 | PCRCNOTE ---
Gave 3% saline. Unable to obtain any sputum. Pt has a dry nonproductive cough.
--- NOTE | 2023-03-24 06:22 | P.CDI_ITS ---
CDI Query Clarification Request BMI 15.5 Nutritional Diagnostic Statement Severe protein calorie malnutrition related to loss of appetite, swallowing difficulty as evidence by weight loss > 13%/ 16 months; NFPE findings of severe muscle wasting and fat loss. Please refer to the comprehensive nutrition assessment for further information. Please clarify severity of protein calorie malnutrition if known: * Mild * Moderate * Severe * Other/Unspecified <Denisse Mann RN - Last Filed: 03/24/23 06:27> Clarified Diagnosis Clarified Diagnosis: severe malnutrition <Malgorzata Petit MD - Last Filed: 03/24/23 07:26>
--- NOTE | 2023-03-24 08:14 | PM.PNPUL ---
Progress Note: A&P Assessment and Plan (1) Cavitary pneumonia: Code(s): J18.9 - Pneumonia, unspecified organism; J98.4 - Other disorders of lung Status: Acute Assessment and Plan: 78-year-old man with a history of Parkinson's, 6 month history of worsening swallow with difficulty swallowing liquids, solids and pills with occasional coughing and aspiration. Patient presents to the emergency department with subjective fevers, cough, weight loss and chest pain with white blood cell count of 13.2 and a chest x-ray with multifocal pneumonia in the right middle lobe, right lower lobe and lingula infiltrates with dense consolidation with necrotic cavitary pneumonia in the left lower lobe. He has no putrid breath or phlegm. He is a nonsmoker with no second hand smoke exposure and no occupational exposures. 03/21 I suspect the patient has aspiration pneumonia with lung abscess with necrosis and cavitation. Plan: No blood cultures were ordered in the emergency department and I have ordered them this morning after antibiotics have been initiated. MRSA and a nasal screen has been sent. Sputum has been ordered although he is making no phlegm. I agree with vancomycin and Unasyn and I have increased the dose of Unasyn to 3 g Q 6 hours. Will follow the patient clinically and radiographically to assess for response to therapy. He does have quite extensive necrosis with abscess formation and I am hoping that antibiotics alone will provide adequate treatment. Barium swallow has been ordered. 03/22 patient said that he slept well and is hungry today. He still has some substernal chest pain and left-sided chest pain worse when he takes a deep breath in. He is afebrile. Room air saturations are 98%. Modified barium swallow yesterday did recommended nectar thick and minced moist food. Plan: Continue Unasyn 3 g q.6 hours and vancomycin per pharmacy, day 3 both. Blood cultures and MRSA swab pending. I will check a CBC in the morning to follow his white blood cell count and a chest x-ray in the morning to assess the left lung infiltrate. 03/23 patient states that he is breathing okay. He tells me that his substernal and left-sided chest pain is somewhat better. He is afebrile. White blood cell count 6.6. Chest x-ray with continued bibasilar infiltrates left greater than right and no focal consolidation. Later in the day had EGD demonstrating reflux esophagitis grade 4 in the mid and distal esophagus. Given his difficulty eating and taking pills a PEG tube was placed. Plan: Patient is breathing at baseline on room air, leukocytosis has resolved, left-sided and substernal chest pain are improved and he remains afebrile. Chest x-ray with continue infiltrate, in my opinion minimal change. Unasyn 3 g q.6 and vancomycin per Pharmacy, day 4 both. MRSA swab negative. I prefer to continue vancomycin until repeat CT scan on 03/25/23 to reassess left lower lobe abscess. 03/24 patient states that he is breathing fine. He states that his substernal chest pain and left-sided chest pain are nearly resolved. He has no phlegm production. Induced sputum was attempted but he produced no phlegm. He is on room air with saturations 97%. White blood cell count is 9.0, CRP is 8.1, procalcitonin is 0.2. Blood cultures negative. Plan: Patient is breathing at baseline on room air, leukocytosis has resolved, left-sided and substernal chest pain nearly resolved and he remains afebrile. Chest x-ray with continue infiltrate, in my opinion minimal change. Unasyn 3 g q.6 and vancomycin per Pharmacy, day 5 both. MRSA swab negative. I prefer to continue vancomycin until repeat CT scan on 03/26/23 (1 week antibiotics) to reassess left lower lobe abscess. Will follow with you Subjective Date/time seen: 03/24/23 08:14 Interval history: 03/21/2023: This is a new pulmonary consult for left lower lobe cavitary pneumonia.? 78-year-old man with a history of Parkinson's, hyp
--- NOTE | 2023-03-24 08:37 | P.PNAN_ITS ---
Anes - Prog Note Post-Op Date/Time: 03/24/23 08:37 Cardiovascular status: normal Respiratory status: normal Airway patency: baseline Mental status: other (confused) Post-Op hydration status: other (tube feeding. ) Vital Signs: Last Vital Signs Temp 37.2 C 03/24/23 04:31 Pulse 72 03/24/23 04:31 Resp 18 03/24/23 04:31 BP 124/69 03/24/23 04:31 Pulse Ox 94 03/24/23 04:31 O2 Del Method Room Air 03/23/23 20:00 O2 Flow Rate 3 03/23/23 15:25 Pain Score (VAS): 0 I/O: Intake & Output 03/23/23 03/24/23 03/24/23 23:59 07:59 15:59 Intake Total 350 275 Output Total 250 150 Balance 100 125 Laboratory Tests 03/24/23 04:22 03/23/23 05:24 03/24/23 04:22 WBC 9.0 RBC 3.82 L Hgb 11.4 L Hct 34.8 L MCV 91.1 MCH 29.8 MCHC 32.8 RDW 12.2 Plt Count 356 MPV 8.3 Immature Gran % (Auto) 0.4 Neut % (Auto) 83.2 H Lymph % (Auto) 8.4 L [place] % (Auto) 6.6 Eos % (Auto) 1.0 Baso % (Auto) 0.4 Lymph # (Auto) 0.75 L [place] # (Auto) 0.6 Eos # (Auto) 0.1 Baso # (Auto) 0.0 Abs Immat Gran (auto) 0.04 H Absolute Neuts (auto) 7.4 H Absolute Nucleated RBC 0.0 Nucleated RBC % 0.0 C-Reactive Protein 8.1 H Procalcitonin 0.2 Vancomycin Trough 20.8 H Microbiology 03/21/23 05:54 Nasopharynx MRSA Culture - Final Post-procedural complaints: none Patient Feedback: Patient satisfied with anesthetic care.
[2023-03-24] MEDS: VANCOMYCIN 1,000 MG/NS 250 ML 1,000 MG/250 ML BAG 250 MG IVPB (09:17)
[2023-03-24] MEDS: VENLAFAXINE HCL XR 75 MG CAP.ER.24H 150 MG PO ×2 (09:54→17:49)
[2023-03-24] MEDS: AMANTADINE HCL 100 MG CAPSULE PO ×3 (09:54→17:49)
[2023-03-24] MEDS: PROPRANOLOL HCL 20 MG TABLET PO ×2 (10:00→20:28)
--- NOTE | 2023-03-24 11:43 | PCNFU ---
Nutrition Follow-Up Complete: Severe protein calorie malnutrition related to loss of appetite, swallowing difficulty as evidenced by weight loss >13%/1 6 months; NFPE findings of severe muscle wasting and fat loss Goal:Meet estimated nutrition needs Pt current nutrition is Jevity 1.2 @ goal of 60ml/hr. Minced and moist level 5 with nectar thick liquids. Nutrition recommendation: Continue with current plan of care. Last recorded weight is 56.3 kg. Bowel Motility: No BM recorded at this time Labs Reviewed: Hgb:11.4, HCT:34.8 Meds Noted: lovenox Skin: no skin issues noted Additional Notes: Pt started on tube feedings, currently running Jevity 1.2 @40ml to advance to goal of 60ml/hr, tolerating. Total provides 1584kcals, 73g protein, 1065ml fluid. Pt also has diet intake and fluids via PO. Minced and moist level 5 diet with mildly thick liquids per speech. Nursing reports good intake this morning. Monitor plan of care, tube feedings, weight, labs Follow up every Thursday and Thursday.
--- NOTE | 2023-03-24 17:06 | PM.IMPN ---
Progress Note: A&P Assessment and Plan (1) Pneumonia: Code(s): J18.9 - Pneumonia, unspecified organism Status: Acute (2) Dysphagia: Code(s): R13.10 - Dysphagia, unspecified Status: Acute (3) Parkinson's disease: Code(s): G20 - Parkinson's disease Status: Chronic (4) Chronic anemia: Code(s): D64.9 - Anemia, unspecified Status: Acute (5) Hypothyroidism: Code(s): E03.9 - Hypothyroidism, unspecified Status: Acute (6) Severely underweight adult: Code(s): R63.6 - Underweight Status: Acute (7) Cavitary lesion of lung: Code(s): J98.4 - Other disorders of lung Status: Acute (8) Multifocal pneumonia: Code(s): J18.9 - Pneumonia, unspecified organism Status: Acute Plan Multifocal pneumonia, lung cavity lesion Patient has leukocytosis, afebrile, Patient received azithromycin vancomycin and Unasyn Suspecting aspiration Aspiration precaution Requested speech therapist evaluation, speech therapy recommended pureed diet Consult housekeeping attendant for evaluation and treatment, c/w Unasyn and vancomycin IV repeat CT scan on 03/25/23 to reassess left lower lobe abscess. Hypothyroidism Continue Synthroid 50 mcg daily p.o. Hypertension Continue prednisone 20 mg b.i.d. p.o. Parkinson disease Continue Sinemet p.o. at home does Controlled Dysphagia Patient has trouble with swallowing frequently l consult GI if patient has dysphagia History of esophageal webbing due to ongoing GERD Start. Pureed modified diet Diet per speech evaluation Subjective Date/time seen: 03/24/23 17:06 Interval history: I saw on exam patient today. Patient feels better today, has some chest pain worse with cough and deep breath, the pain is improving. Patient is afebrile, Exam Narrative: General: Frail, cachectic appearing gentleman the semi-Argueta position in bed. Weight: 54.5 kg. BMI: 15.0. HEENT: PERRL, EOMI. Sclera anicteric. Tacky mucous membranes. Edentulous. Neck: Supple. No JVD or lymphadenopathy. Respiratory: Respirations are nonlabored and he is speaking in full sentences. Bibasilar crackles, left greater than right. Cardiovascular: Regular rate and rhythm with S1-S2. Gastrointestinal: Abdomen is soft, scaphoid, and nontender with positive bowel sounds. Skin: Warm and dry. Extremities: No cyanosis, clubbing, or edema. Radial pulses palpable, pedal pulses diminished but posterior tibialis pulses were palpable. Feet are cool but perfused. Neurological: Alert. not oriented x 2, likley base line generally weak without obvious focal deficits. Psychiatric: Pleasant and cooperative with flat mood and normal affect. Objective Data Vital Signs Vital Signs: Vital Signs - 24 hr 03/23/23 20:37 03/23/23 21:00 03/23/23 20:00 Temperature 98 F Pulse Rate 72 73 73 Respiratory Rate 18 18 Blood Pressure 157/79 H Pulse Oximetry 95 95 Oxygen Delivery Room Air 03/24/23 04:31 03/24/23 10:00 03/24/23 09:54 Temperature 98.9 F Pulse Rate 72 80 Respiratory Rate 18 Blood Pressure 124/69 Pulse Oximetry 94 Oxygen Delivery Room Air 03/24/23 09:50 03/24/23 14:00 Temperature 98.7 F Pulse Rate 80 57 L Respiratory Rate 16 Blood Pressure 118/53 L 98/57 L Pulse Oximetry 92 Oxygen Delivery Intake/Output Intake/Output: Intake & Output 03/21/23 03/22/23 03/23/23 03/24/23 23:59 23:59 23:59 23:59 Intake Total 1450 1670 1300 1105 Output Total 775 400 150 Balance 675 1670 900 955 Meds/Results Medications: Active Medications Generic Name Dose Route Start Last Admin Trade Name Freq PRN Reason Stop Dose Admin Amantadine HCl 100 mg 03/21/23 09:00 03/24/23 12:57 Amantadine Hcl 100 Mg Capsule PO 100 mg TID VERN Administration Carbidopa/Levodopa 1 tablet 03/21/23 06:00 03/24/23 12:57 Carbidopa/Levodopa 12.5/50 Mg Tablet PO 1 tablet 0600,0930,1300,1630,2000 [facility] Adminis
[2023-03-24] MEDS: VANCOMYCIN 1,000 MG/NS 250 ML 1,000 MG/250 ML BAG 200 MG IVPB (20:27)
[2023-03-24] MEDS: QUEtiapine FUMARATE 100 MG TABLET PO (20:28)
[2023-03-25] VITALS (7 sets, daily range): BP systolic 118–148; BP diastolic 65–79; PULSE 60–72; RESP 18–19; TEMP 36.4–37; O2SAT 97–100
[2023-03-25 05:14] LABS: Pneumococcal Antigen Urine Not Detected (Not Detected)
[2023-03-25 05:40] LABS: Basophils Percent Auto 0.3 % (0.2-1.2); Eosinophils Absolute Auto 0.4 K/mm3 (0-0.3); Eosinophils Percent Auto 4.6 % (0-4.4); Hematocrit 35.5 % (42.0-52.0); Hemoglobin 11.2 g/dL (14.0-18.0); Immature Granulocyte Absolute 0.06 K/mm3 (0.00-0.031); Immature Granulocyte Percent A 0.6 % (0-0.5); Lymphocytes Absolute Auto 0.78 K/mm3 (0.9-3.2); Lymphocytes Percent Auto 8.3 % (18.3-44.2); Mean Corpuscular HGB Conc 31.5 g/dl (32-36); Mean Corpuscular Hemoglobin 29.5 pg (26-34); Mean Corpuscular Volume 93.4 fl (80-100); Mean Platelet Volume 8.6 fl (7.4-10.4); Monocytes Absolute Auto 0.8 K/mm3 (0.1-0.6); Neutrophils Absolute Auto 7.2 K/mm3 (1.3-6.7); Neutrophils Percent Auto 77.2 % (45.5-73.1); Platelet Count Result 354 k/mm3 (150-375); Red Cell Distribution Width 12.1 % (11.5-14.5); White Blood Count 9.4 K/mm3 (4.5-10.0)
[2023-03-25] MEDS: AMPICILLIN SULB 3 GM/NS 100 ML 3 GM/100 ML VIAL IVPB ×4 (05:50→23:32)
[2023-03-25] MEDS: ENTACAPONE 200 MG TABLET PO ×5 (05:50→20:13)
[2023-03-25] MEDS: CARBIDOPA/LEVODOPA 25/100 MG TABLET 2 TABLET PO ×5 (05:50→20:13)
[2023-03-25] MEDS: CARBIDOPA/LEVODOPA 12.5/50 MG TABLET 1 TABLET PO ×5 (05:51→20:13)
[2023-03-25] MEDS: LEVOTHYROXINE SODIUM 50 MCG TABLET PO (05:51)
[2023-03-25 06:00] LABS: Estimated CRCL calculation 63 ml/min; Estimated Glomerular Filt Rate > 60
--- NOTE | 2023-03-25 08:20 | PM.PNPUL ---
Progress Note: A&P Assessment and Plan (1) Cavitary pneumonia: Code(s): J18.9 - Pneumonia, unspecified organism; J98.4 - Other disorders of lung Status: Acute Assessment and Plan: 78-year-old man with a history of Parkinson's, 6 month history of worsening swallow with difficulty swallowing liquids, solids and pills with occasional coughing and aspiration. Patient presents to the emergency department with subjective fevers, cough, weight loss and chest pain with white blood cell count of 13.2 and a chest x-ray with multifocal pneumonia in the right middle lobe, right lower lobe and lingula infiltrates with dense consolidation with necrotic cavitary pneumonia in the left lower lobe. No evidence of a large airway obstruction. He has no putrid breath or phlegm. He is a nonsmoker with no second hand smoke exposure and no occupational exposures. 03/21 I suspect the patient has aspiration pneumonia with lung abscess with necrosis and cavitation. Plan: No blood cultures were ordered in the emergency department and I have ordered them this morning after antibiotics have been initiated. MRSA and a nasal screen has been sent. Sputum has been ordered although he is making no phlegm. I agree with vancomycin and Unasyn and I have increased the dose of Unasyn to 3 g Q 6 hours. Will follow the patient clinically and radiographically to assess for response to therapy. He does have quite extensive necrosis with abscess formation and I am hoping that antibiotics alone will provide adequate treatment. Barium swallow has been ordered. 03/22 patient said that he slept well and is hungry today. He still has some substernal chest pain and left-sided chest pain worse when he takes a deep breath in. He is afebrile. Room air saturations are 98%. Modified barium swallow yesterday did recommended nectar thick and minced moist food. Plan: Continue Unasyn 3 g q.6 hours and vancomycin per pharmacy, day 3 both. Blood cultures and MRSA swab pending. I will check a CBC in the morning to follow his white blood cell count and a chest x-ray in the morning to assess the left lung infiltrate. 03/23 patient states that he is breathing okay. He tells me that his substernal and left-sided chest pain is somewhat better. He is afebrile. White blood cell count 6.6. Chest x-ray with continued bibasilar infiltrates left greater than right and no focal consolidation. Later in the day had EGD demonstrating reflux esophagitis grade 4 in the mid and distal esophagus. Given his difficulty eating and taking pills a PEG tube was placed. Plan: Patient is breathing at baseline on room air, leukocytosis has resolved, left-sided and substernal chest pain are improved and he remains afebrile. Chest x-ray with continue infiltrate, in my opinion minimal change. Unasyn 3 g q.6 and vancomycin per Pharmacy, day 4 both. MRSA swab negative. I prefer to continue vancomycin until repeat CT scan on 03/25/23 to reassess left lower lobe abscess. 03/24 patient states that he is breathing fine. He states that his substernal chest pain and left-sided chest pain are nearly resolved. He has no phlegm production. Induced sputum was attempted but he produced no phlegm. He is on room air with saturations 97%. White blood cell count is 9.0, CRP is 8.1, procalcitonin is 0.2. Blood cultures negative. Plan: Patient is breathing at baseline on room air, leukocytosis has resolved, left-sided and substernal chest pain nearly resolved and he remains afebrile. Chest x-ray with continue infiltrate, in my opinion minimal change. Unasyn 3 g q.6 and vancomycin per Pharmacy, day 5 both. MRSA swab negative. I prefer to continue vancomycin until repeat CT scan on 03/26/23 (1 week antibiotics) to reassess left lower lobe abscess. 03/25 patient has no shortness of breath at rest. He is afebrile. He states his substernal left-sided chest pain continues to improve. Room air saturations are 97%. White blood cell co
[2023-03-25] MEDS: VANCOMYCIN 1,000 MG/NS 250 ML 1,000 MG/250 ML BAG 200 MG IVPB ×2 (09:21→21:24)
[2023-03-25] MEDS: VENLAFAXINE HCL XR 75 MG CAP.ER.24H 150 MG PO ×2 (09:22→18:24)
[2023-03-25] MEDS: AMANTADINE HCL 100 MG CAPSULE PO ×3 (09:22→18:24)
[2023-03-25] MEDS: PROPRANOLOL HCL 20 MG TABLET PO ×2 (09:34→20:14)
--- NOTE | 2023-03-25 11:15 | PM.IMPN ---
Progress Note: A&P Assessment and Plan (1) Pneumonia: Code(s): J18.9 - Pneumonia, unspecified organism Status: Acute (2) Dysphagia: Code(s): R13.10 - Dysphagia, unspecified Status: Acute (3) Parkinson's disease: Code(s): G20 - Parkinson's disease Status: Chronic (4) Chronic anemia: Code(s): D64.9 - Anemia, unspecified Status: Acute (5) Hypothyroidism: Code(s): E03.9 - Hypothyroidism, unspecified Status: Acute (6) Severely underweight adult: Code(s): R63.6 - Underweight Status: Acute (7) Cavitary lesion of lung: Code(s): J98.4 - Other disorders of lung Status: Acute (8) Multifocal pneumonia: Code(s): J18.9 - Pneumonia, unspecified organism Status: Acute Plan Multifocal pneumonia, lung cavity lesion Patient has leukocytosis, afebrile, Suspecting aspiration Aspiration precaution Requested speech therapist evaluation, speech therapy recommended pureed diet Consult airplane tester for evaluation and treatment, c/w Unasyn and vancomycin IV repeat CT scan on 03/26/23 to reassess left lower lobe abscess. Hypothyroidism Continue Synthroid 50 mcg daily p.o. Hypertension Continue prednisone 20 mg b.i.d. p.o. Parkinson disease Continue Sinemet p.o. at home does Controlled Dysphagia Patient has trouble with swallowing frequently l consult GI if patient has dysphagia History of esophageal webbing due to ongoing GERD Start. Pureed modified diet Diet per speech evaluation Subjective Date/time seen: 03/25/23 11:15 Interval history: No new complaints Exam Narrative: General: Frail, cachectic appearing gentleman the semi-Argueta position in bed. Weight: 54.5 kg. BMI: 15.0. HEENT: PERRL, EOMI. Sclera anicteric. Tacky mucous membranes. Edentulous. Neck: Supple. No JVD or lymphadenopathy. Respiratory: Respirations are nonlabored and he is speaking in full sentences. Bibasilar crackles, left greater than right. Cardiovascular: Regular rate and rhythm with S1-S2. Gastrointestinal: Abdomen is soft, scaphoid, and nontender with positive bowel sounds. Skin: Warm and dry. Extremities: No cyanosis, clubbing, or edema. Radial pulses palpable, pedal pulses diminished but posterior tibialis pulses were palpable. Feet are cool but perfused. Neurological: Alert. not oriented x 2, likley base line generally weak without obvious focal deficits. Psychiatric: Pleasant and cooperative with flat mood and normal affect. Objective Data Vital Signs Vital Signs: Vital Signs - 24 hr 03/24/23 14:00 03/24/23 20:04 03/24/23 20:28 Temperature 98.7 F 98.2 F Pulse Rate 57 L 64 78 Respiratory Rate 16 16 Blood Pressure 98/57 L 131/72 Pulse Oximetry 92 100 Oxygen Delivery 03/24/23 20:00 03/25/23 04:19 03/25/23 09:34 Temperature 98.4 F Pulse Rate 78 60 66 Respiratory Rate 16 18 Blood Pressure 148/72 H Pulse Oximetry 100 100 Oxygen Delivery Room Air 03/25/23 09:22 03/25/23 09:22 Temperature Pulse Rate 66 Respiratory Rate Blood Pressure 118/65 Pulse Oximetry Oxygen Delivery Room Air Intake/Output Intake/Output: Intake & Output 03/22/23 03/23/23 03/24/23 03/25/23 23:59 23:59 23:59 23:59 Intake Total 1670 1300 1655 150 Output Total 400 350 400 Balance 6680 397 9931 -250 Meds/Results Medications: Active Medications Generic Name Dose Route Start Last Admin Trade Name Maribell PRN Reason Stop Dose Admin Amantadine HCl 100 mg 03/21/23 09:00 03/25/23 09:22 Amantadine Hcl 100 Mg Capsule PO 100 mg TID VERN Administration Carbidopa/Levodopa 1 tablet 03/21/23 06:00 03/25/23 09:22 Carbidopa/Levodopa 12.5/50 Mg Tablet PO 1 tablet 0600,0930,1300,1630,2000 VERN Administration Carbidopa/Levodopa 2 tablet 03/21/23 06:00 03/25/23 09:22 Carbidopa/Levodopa 25/100 Mg Tablet PO 2 tablet 0600,0930,1300,1630,2000 VERN Administration Enoxaparin Sod
[2023-03-25 14:34] LABS: Mycoplasma IgM Antibody Titer 4 U/mL (<770)
[2023-03-25] MEDS: QUEtiapine FUMARATE 100 MG TABLET PO (20:14)
[2023-03-25 20:21] LABS: Vancomycin Trough 17.5 ug/mL (10.0-20.0)
[2023-03-26 04:10] VITALS: BP 148/73; PULSE 62; RESP 16; TEMP 37; O2SAT 97
[2023-03-26] MEDS: CARBIDOPA/LEVODOPA 25/100 MG TABLET 2 TABLET PO ×4 (06:01→17:01)
[2023-03-26] MEDS: AMPICILLIN SULB 3 GM/NS 100 ML 3 GM/100 ML VIAL IVPB (06:01)
[2023-03-26] MEDS: LEVOTHYROXINE SODIUM 50 MCG TABLET PO (06:01)
[2023-03-26] MEDS: ENTACAPONE 200 MG TABLET PO ×4 (06:01→17:01)
[2023-03-26] MEDS: CARBIDOPA/LEVODOPA 12.5/50 MG TABLET 1 TABLET PO ×4 (06:01→17:01)
--- NOTE | 2023-03-26 08:31 | P.PNPL_ITS ---
Progress Note: A&P Assessment and Plan (1) Cavitary pneumonia: Code(s): J18.9 - Pneumonia, unspecified organism; J98.4 - Other disorders of lung Status: Acute Assessment and Plan: 78-year-old man with a history of Parkinson's, 6 month history of worsening swallow with difficulty swallowing liquids, solids and pills with occasional coughing and aspiration. Patient presents to the emergency department with s ubjective fevers, cough, weight loss and chest pain with white blood cell count of 13.2 and a chest x-ray with multifocal pneumonia in the right middle lobe, right lower lobe and lingula infiltrates with dense consolidation with necrotic cavitary pneumonia in the left lower lobe. No evidence of a large airway obstruction. He has no putrid breath or phlegm. He is a nonsmoker with no second hand smoke exposure and no occupational exposures. 03/21 I suspect the patient has aspiration pneumonia with lung abscess with necrosis and cavitation. Plan: No blood cultures were ordered in the emergency department and I have ordered them this morning after antibiotics have been initiated. MRSA and a nasal screen has been sent. Sputum has been ordered although he is making no phlegm. I agree with vancomycin and Unasyn and I have increased the dose of Unasyn to 3 g Q 6 hours. Will follow the patient clinically and radiographically to assess for response to therapy. He does have quite extens eva necrosis with abscess formation and I am hoping that antibiotics alone will provide adequate treatment. Barium swallow has been ordered. 03/22 patient said that he slept well and is hungry today. He still has some substernal chest pain and left-sided chest pain worse when he takes a deep breath in. He is afebrile. Room air saturations are 98%. Modified barium swallow yesterday did recommended nectar thick and minced moist food. Plan: Continue Unasyn 3 g q.6 hours and vancomycin per pharmacy, day 3 both. Blood cultures and MRSA swab pending. I will check a CBC in the morning to fol low his white blood cell count and a chest x-ray in the morning to assess the left lung infiltrate. 03/23 patient states that he is breathing okay. He tells me that his substernal and left-sided chest pain is somewhat better. He is afebrile. White blood cell count 6.6. Chest x-ray with continued bibasilar infiltrates left greater than right and no focal consolidation. Later in the day had EGD demonstrating reflux esophagitis grade 4 in the mid and distal esophagus. Given his difficulty eating and taking pills a PEG tube was placed. Plan: Patient is breathing at baseline on room air, leukocytosis has resolved, left-sided and substernal chest pain are improved and he remains afebrile. Chest x-ray with continue infiltrate, in my opinion minimal change. Unasyn 3 g q.6 and vancomycin per Pharmacy, day 4 both. MRSA swab negative. I prefer to continue vancomycin until repeat CT scan on 03/25/23 to reassess left lower lobe abscess. 03/24 patient states that he is breathing fine. He states that his substernal chest pain and left-sided chest pain are nearly resolved. He has no phlegm production. Induced sputum was attempted but he produced no phlegm. He is on room air with saturations 97%. White blood cell count is 9.0, CRP is 8.1, procalcitonin is 0.2. Blood cultures negative. Plan: Patient is breathing at baseline on room air, leukocytosis has resolved, left-sided and substernal chest pain nearly resolved and he remains afebrile. Chest x-ray with continue infiltrate, in my opinion minimal change. Unasyn 3 g q.6 and vancomycin per Pharmacy, day 5 both. MRSA swab negative. I prefer to continue vancomycin until repeat CT scan on 03/26/23 (1 week antibiotic
[2023-03-26] MEDS: VANCOMYCIN 1,000 MG/NS 250 ML 1,000 MG/250 ML BAG 200 MG IVPB (08:39)
[2023-03-26 08:43] VITALS: PULSE 60
[2023-03-26] MEDS: AMANTADINE HCL 100 MG CAPSULE PO ×3 (08:43→17:01)
[2023-03-26] MEDS: PROPRANOLOL HCL 20 MG TABLET PO ×2 (08:43→20:02)
[2023-03-26] MEDS: VENLAFAXINE HCL XR 75 MG CAP.ER.24H 150 MG PO ×2 (08:43→17:00)
--- NOTE | 2023-03-26 11:37 | P.PNINF_ITS ---
Pharmacy ID Consult - Stewardship Interventions Type of Interventions: Escalation Pharmacy ID Note: Subjective Pharmacy was consulted by Marcos Wolfe regarding infectious diseases for Yosvany Donovan. Yosvany Donovan is a 78 year old M with concerns regarding pneumonia with concern for abscess. Background The patient is currently receiving Unasyn and vancomycin day 7. The patient's PMH includes parkinson's with increasing difficulty swallowing among else stated in provider notes. Additionally, with repeat CT today showing either no change or worsening per the consulting provider. Concern for abscess. WBC has never been >10 since 03/22. MRSA Nares was negative and blood cultures are no growth to date Assessment/Recommendation/Discussion Spoke briefly with Dr. Wolfe who, given the recent imaging, is thinking potentially that a transfer may be appropriate if source control can be obtained. This is likely a very appropriate consideration. In the meantime, provider looking to broaden the gram-negative coverage with pipera cillin/tazobactam and levofloxacin. Patient now on vancomycin pharmacy to dose, levofloxacin 750 mg q24h, and Zosyn 4.5 g q6h. Provide aware of potential risk for renal dysfunction with this combination. Will follow, please reach out if clinical picture changes or additional information and recommendations are needed. Thank you for the interesting consult. Jacques Zavala, PharmD Infectious Disease/Antimicrobial Stewardship Pharmacist 03/26/23; 1137 WBC 9.4 K/mm3 (4.5-10.0) 03/25/23 05:16 Creatinine 0.70 mg/dL (0.7-1.3) 03/25/23 05:16 Estim Creat Clear Calc 63 ml/min 03/25/23 05:16
[2023-03-26] MEDS: PIPERACILLIN/TAZ 4.5G/NS 100ML 4.5 GM/100 ML BAG IVPB ×2 (12:20→19:29)
--- NOTE | 2023-03-26 12:30 | PM.IMPN ---
Progress Note: A&P Assessment and Plan (1) Pneumonia: Code(s): J18.9 - Pneumonia, unspecified organism Status: Acute (2) Dysphagia: Code(s): R13.10 - Dysphagia, unspecified Status: Acute (3) Parkinson's disease: Code(s): G20 - Parkinson's disease Status: Chronic (4) Chronic anemia: Code(s): D64.9 - Anemia, unspecified Status: Acute (5) Hypothyroidism: Code(s): E03.9 - Hypothyroidism, unspecified Status: Acute (6) Severely underweight adult: Code(s): R63.6 - Underweight Status: Acute (7) Cavitary lesion of lung: Code(s): J98.4 - Other disorders of lung Status: Acute (8) Multifocal pneumonia: Code(s): J18.9 - Pneumonia, unspecified organism Status: Acute Plan Multifocal pneumonia, lung cavity lesion Patient has leukocytosis, afebrile, Suspecting aspiration Aspiration precaution Requested speech therapist evaluation, speech therapy recommended pureed diet Consult solar applications development engineer for evaluation and treatment, c/w Unasyn and vancomycin IV repeat CT scan on 03/26/23 to reassess left lower lobe abscess. Hypothyroidism Continue Synthroid 50 mcg daily p.o. Hypertension Continue prednisone 20 mg b.i.d. p.o. Parkinson disease Continue Sinemet p.o. at home does Controlled Dysphagia Patient has trouble with swallowing frequently l consult GI if patient has dysphagia History of esophageal webbing due to ongoing GERD Start. Pureed modified diet Diet per speech evaluation Subjective Date/time seen: 03/26/23 12:30 Interval history: No new complaints Exam Narrative: General: Frail, cachectic appearing gentleman the semi-Argueta position in bed. Weight: 54.5 kg. BMI: 15.0. HEENT: PERRL, EOMI. Sclera anicteric. Tacky mucous membranes. Edentulous. Neck: Supple. No JVD or lymphadenopathy. Respiratory: Respirations are nonlabored and he is speaking in full sentences. Bibasilar crackles, left greater than right. Cardiovascular: Regular rate and rhythm with S1-S2. Gastrointestinal: Abdomen is soft, scaphoid, and nontender with positive bowel sounds. Skin: Warm and dry. Extremities: No cyanosis, clubbing, or edema. Radial pulses palpable, pedal pulses diminished but posterior tibialis pulses were palpable. Feet are cool but perfused. Neurological: Alert. not oriented x 2, likley base line generally weak without obvious focal deficits. Psychiatric: Pleasant and cooperative with flat mood and normal affect. Objective Data Vital Signs Vital Signs: Vital Signs - 24 hr 03/25/23 14:00 03/25/23 20:12 03/25/23 20:14 Temperature 97.6 F 98.6 F Pulse Rate 67 72 68 Respiratory Rate 19 18 Blood Pressure 121/68 142/79 H Pulse Oximetry 100 97 Oxygen Delivery 03/25/23 20:00 03/26/23 04:10 03/26/23 08:43 Temperature 98.6 F Pulse Rate 68 62 60 Respiratory Rate 18 16 Blood Pressure 148/73 H Pulse Oximetry 97 97 Oxygen Delivery Room Air Intake/Output Intake/Output: Intake & Output 03/23/23 03/24/23 03/25/23 03/26/23 23:59 23:59 23:59 23:59 Intake Total 1300 1655 930 300 Output Total 400 580 873 9370 Balance 900 1305 380 -700 Meds/Results Medications: Active Medications Generic Name Dose Route Start Last Admin Trade Name Freq PRN Reason Stop Dose Admin Amantadine HCl 100 mg 03/21/23 09:00 03/26/23 12:20 Amantadine Hcl 100 Mg Capsule PO 100 mg TID VERN Administration Carbidopa/Levodopa 1 tablet 03/21/23 06:00 03/26/23 12:20 Carbidopa/Levodopa 12.5/50 Mg Tablet PO 1 tablet 0600,0930,1300,1630,2000 VERN Administration Carbidopa/Levodopa 2 tablet 03/21/23 06:00 03/26/23 12:20 Carbidopa/Levodopa 25/100 Mg Tablet PO 2 tablet 0600,0930,1300,1630,2000 VERN Administration Enoxaparin Sodium 40 mg 03/21/23 09:00 03/22/23 11:56 Enoxaparin 40 Mg/0.4 Ml Syringe SUB-Q Not Given DAILY [facility] Entacapone 200 mg 03/21/23 06:00 03/26/23
[2023-03-26] MEDS: levoFLOXacin 750 MG/D5W 150 ML 750 MG/150 ML BAG 100 MG IVPB (13:19)
[2023-03-26 14:00] VITALS: BP 111/59; PULSE 73; RESP 16; TEMP 36.9; O2SAT 93
[2023-03-26 20:02] VITALS: PULSE 65
[2023-03-26] MEDS: QUEtiapine FUMARATE 100 MG TABLET PO (20:02)
[2023-03-26 21:24] VITALS: BP 132/76; PULSE 65; RESP 16; TEMP 37.1; O2SAT 97
[2023-03-27 08:18] LABS: Legionella pneumophila Ag Ur Not Detected (Not Detected)
--- NOTE | 2023-04-14 12:42 | PM.TDS ---
Transfer Discharge Sum: Prov Provider Date of admission: 03/21/23 15:34 Primary care physician: Eduardo Urena MD Admitting clinician: Antonio Silva MD Consults: 03/20/23 Consult to Dietitian Routine Reason for Consult:: Severely underweight Consult to Physician Routine Comment: Consulting Provider: Shin Wolfe boiler plant worker/MD group to consult: Pulmonology Reason for consultation: Cavitary pneumonia Has provider been notified: Yes 03/21/23 Consult to Physician Routine Comment: spoke w/ @0819 03/22 (/[place]) Consulting Provider: Ricky Carmen boiler plant worker/ group to consult: Consult on-call GI doctor for dysphagia Reason for consultation: Dysphagia Has provider been notified: Yes 03/26/23 11:36 Consult Infectious Disease Pharmacist Routine Comment: DS: Admitting Diagnosis Discharge Date 03/26/23 Admitting Diagnosis dysphagi, cavitary lung lesion DS: Discharge Diagnosis Discharge Diagnosis (1) Pneumonia: Code(s): J18.9 - Pneumonia, unspecified organism Status: Acute (2) Dysphagia: Code(s): R13.10 - Dysphagia, unspecified Status: Acute (3) Parkinson's disease: Code(s): G20 - Parkinson's disease Status: Chronic (4) Chronic anemia: Code(s): D64.9 - Anemia, unspecified Status: Acute (5) Hypothyroidism: Code(s): E03.9 - Hypothyroidism, unspecified Status: Acute (6) Severely underweight adult: Code(s): R63.6 - Underweight Status: Acute (7) Cavitary lesion of lung: Code(s): J98.4 - Other disorders of lung Status: Acute (8) Multifocal pneumonia: Code(s): J18.9 - Pneumonia, unspecified organism Status: Acute Plan Multifocal pneumonia, lung cavity lesion Patient has leukocytosis, afebrile, Suspecting aspiration Aspiration precaution Requested speech therapist evaluation, speech therapy recommended pureed diet Consult kettle skimmer for evaluation and treatment, c/w Unasyn and vancomycin IV repeat CT scan on 03/26/23 to reassess left lower lobe abscess. Hypothyroidism Continue Synthroid 50 mcg daily p.o. Hypertension Continue prednisone 20 mg b.i.d. p.o. Parkinson disease Continue Sinemet p.o. at home does Controlled Dysphagia Patient has trouble with swallowing frequently l consult GI if patient has dysphagia History of esophageal webbing due to ongoing GERD Start. Pureed modified diet Diet per speech evaluation Transfer Discharge Sum: Med Medications Active and Home Medications: Home Medications amantadine HCl 100 mg tablet 100 mg PO TID 02/14/20 [History Confirmed 03/20/23] atorvastatin 10 mg tablet 10 mg PO DAILY #90 tabs 11/22/20 [Rx Confirmed 03/20/23] terbinafine HCl 250 mg tablet 250 mg PO DAILY 02/24/22 [History Confirmed 03/20/23] venlafaxine 150 mg capsule,extended release 24 hr 150 mg PO BID 08/27/22 [History Confirmed 03/20/23] propranolol 20 mg tablet 20 mg PO Q12H 09/24/22 [History Confirmed 03/20/23] quetiapine 100 mg tablet 100 mg PO QHS 09/24/22 [History Confirmed 03/20/23] carbidopa 25 mg-levodopa 100 mg tablet 0.5 tablet PO Q3-4H 11/17/22 [History Confirmed 03/20/23] carbidopa 50 mg-levodopa 200 mg-entacapone 200 mg tablet 1 tablet PO Q3-4H 11/17/22 [History Confirmed 03/20/23] levothyroxine 50 mcg tablet (Synthroid) 50 mcg PO QAM 11/17/22 [History Confirmed 03/20/23] sennosides 15 mg tablet (Perdiem Overnight Relief) 15 mg PO HS PRN Constipation 11/17/22 [History Confirmed 03/20/23] Transfer Discharge Sum: Hosp Hospital Course Hospital course: Yosvany Donovan is a 78 year old male admitted for dysphagia and cavitary lung lesion and pna - patient was evaluated by pulm and recommendation was to transfer patient to tertiary center for further evaluation and management of cavitary lung lesion. Time Spent with Patient Time attestation: Total time spent providing and/or coordinating transfer services: Exam Narrative:
== END 2023-03-26 21:10 | disposition short-term general hospital (02) | DRG 193 ==
LOC: ANHED 13:06 → ANH3MEDSUR 17:19 → ANH3MED 20:14
PROVIDERS: Internal Medicine Gastroenterology; Internal Medicine Pulmonary Disease; Physician Assistant; Admitting Provider Internal Medicine; Emergency Provider Preventive Medicine Aerospace Medicine; PCP Family Medicine; Visit Provider Chiropractor
PROC: 0DJ08ZZ Inspection of Upper Intestinal Tract, Via Natural or Artificial Opening Endoscopic (ICD-10-PCS; CPT 43235; principal; 2023-03-23 14:00)
PROC: 0DH63UZ Insertion of Feeding Device into Stomach, Percutaneous Approach (ICD-10-PCS; CPT 43246; 2023-03-23 14:00)
DX: J18.9 Pneumonia, unspecified organism (principal); E43 Unspecified severe protein-calorie malnutrition; Z68.1 Body mass index [BMI] 19.9 or less, adult; E03.9 Hypothyroidism, unspecified; R13.10 Dysphagia, unspecified; D64.9 Anemia, unspecified; E78.5 Hyperlipidemia, unspecified; E55.9 Vitamin D deficiency, unspecified; F41.9 Anxiety disorder, unspecified; F32.A Depression, unspecified; G20 Parkinson's disease; H91.90 Unspecified hearing loss, unspecified ear; I10 Essential (primary) hypertension; J98.4 Other disorders of lung; K21.9 Gastro-esophageal reflux disease without esophagitis; Z98.49 Cataract extraction status, unspecified eye; Z96.1 Presence of intraocular lens
CPT/HCPCS: 36415; 43246; 71045; 71046; 71250; 71260; 74177; 80048; 80053; 80202; 81001; 82565; 82607; 82728; 82746; 83540; 83550; 83735; 84100; 84145; 84443; 85025; 86140; 86738; 87040; 87081; 87449; 87899; 92611; 93005; 96365; 96366; 96367; 96372; 96376; 97110; 97116; 97161; 97166; 97530; 97535; 99285; A9270; G0378; J0295; J0456; J0696; J1650; J1956; J2060; J2543; J2704; J3370; J7120; Q9967

== ENCOUNTER 2024-09-28 08:38 | Outpatient (CLI) | payer MEDICARE, SELFPAY ==
--- OUTSIDE RECORDS SUMMARY | 2024-09-28 09:01 | XMS_ITS | Clinical Summary ---
Author Organization [facility] [address] [facility] [address] Address [address] [facility] [address] [place] [address] Care Team Providers Care Production Tester Name Role Phone Eduardo Urena MD Primary Care Provider Donavan Monroe MD Unavailable [phone] Allergies No known active allergies Medications polyethylene glycol (MIRALAX) 17 gram/dose bulk powder Take 17 g by mouth daily 3 Active amantadine (SYMMETREL) 100 mg capsuleIndications :Parkinson's disease (HCC) Take 1 capsule (100 mg total) by mouth 3 (three) times a day 270 capsule 3 4 Active propranoloL (INDERAL) 20 mg tablet TAKE 1 TABLET TWICE A DAY 180 tablet 3 4 Active midodrine (PROAMATINE) 2.5 mg tablet Take 1 tab in the morning and 1 tab midday. 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 Continue Seroquel, amantadine, propranolol Assessment & Plan (04/13/2023 9:41 PM CDT): Patient is calm, cooperative with care, no behaviors. Continue Seroquel q.h.s.. Speech therapy is following. Assessment & Plan (04/08/2023 8:19 PM CDT): MOCA 1125 indicating significant cognitive decline. Patient is cooperative with care. Behaviors controlled with Seroquel 100 mg nightly, other Parkinson's symptoms controlled with Sinemet, amantadine, propranolol. Speech therapy involved, we will monitor progress. Oropharyngeal dysphagia 04/03/2023 Assessment & Plan (04/20/2023 9:46 AM CDT): Patient is tolerating mechanical soft and thin liquids without overt signs of aspiration. P.o. intake had been suboptimal, nutrition is supported by nightly tube feeds. Assessment & Plan (04/03/2023 11:31 AM CDT): Cleared by hospitalist speech therapy for a mechanical soft diet and thin liquids. Will have speech therapy evaluate here. Patient's p.o. intake is suboptimal, was transferred on tube feeds at night for nutritional supplementation. Protein-calorie malnutrition, severe (CMS/HCC) 0 03/27/2023 Assessment & Plan (04/20/2023 9:46 AM CDT): P.o. intake has significantly improved, tolerating nightly tube feeds. Continue to monitor weight. Follow up with PCP Assessment & Plan (04/15/2023 10:59 AM CDT): Patient's p.o. intake has significantly improved, tolerating tube feeds overnight. Blood pressure, electrolytes, renal function have all remained stable. No updated weight documented Assessment & Plan (04/08/2023 8:16 PM CDT): Appreciate dietary consult. Continue to monitor regular weights. Tolerating current diet as well as tube feeds the night to improve nutritional status. electrolytes and renal function are stable. Assessment & Plan (04/07/2023 4:30 PM CDT): Dietary consult Pneumonia with cavity of lung 03/26/2023 Assessment & Plan (04/15/2023 11:01 AM CDT): Pulmonary status back to baseline. Patient now has a follow-up with pulmonology, Dr. Monroe, 04/22/2023 at 2:15 p.m. Pulmonary to assess for antibiotic stop date. Continue Augmentin until otherwise indicated by pulmonology. Assessment & Plan (04/13/2023 9:40 PM CDT): Patient's pulmonary status is improving, cough improving, oxygenation stable. Continues on Augmentin. Needs follow-up with pulmonology, Donavan Monroe MD, scheduled last week of March to determine stop date of antibiotic. Therapies remain in place. Assessment & Plan (04/08/2023 8:21 PM CDT): Pulmonary status significantly improved, oxygenation stable. No cough. Completing Augmentin for at least 4-6 weeks after initiation. Should follow up with pulmonology prior to discontinuing antibiotics. Assessment & Plan (04/07/2023 4:30 PM CDT): I have reviewed his ds and outside reports of cxr Assessment & Plan (04/03/2023 11:30 AM CDT): Pulmonary status improving, no current supplemental oxygen needs. Cough significantly improved. Completing Augmentin - will need at least 4-6 weeks of antibiotic per pulmonary. Should follow up with pulmonology prior to discontinuing antibiotic. Debility 10/27/2019 Bilateral visual field constriction 11/11/2018 Assessment & Plan (11/11/2018 11:15 AM CDT): Inconsistent on confrontations -likely related to myopic nerve and/or laser tx -would like GVF in the future -follow for now Diplopia 05/13/2018 Assessment & Plan (05/13/2018 11:09 AM CDT): Intermittent; pt describes as horizontal but previous testing revealed small LHT. No diplopia on exam today. 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 Dystonia 11/19/2017 Degenerative myopia of both eyes 10/08/2017 Assessment & Plan (11/11/2018 11:10 AM CDT): H/o high myopia both eyes (OU) status post (s/p) cataract extraction (CE) -no subretinal fluid (SRF) of OCT today -status post (s/p) laser 360 both eyes (OU) -follow annually 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 He has asymmetric rest tremor (3 limbs today and lips), bradykinesia, and rigidity, consistent with idiopathic PD. There are no additional features to indicate other causes of parkinsonism. His symptoms have responded well to carbi/levo but he had difficulty with troublesome dyskinesia on higher doses of levodopa in the past christiano now takes 1 tab of Stalevo every 3.5 hours but is clearly undertreated and is still wearing off and having tremor breakthrough. His balance is also clearly worse and his UPDRS went up today. They are bothered that the entacapone is turning urine orange and staining clothes, bedsheets and toilet. We will stop Stalevo and instead use 2.5 tabs of carbi/levo (a slight increase in dose) and try rasagiline. They are aware there is a rare risk of serotonin syndrome given that he is taking venlafaxine. His hallucinations have also become more intrusive and bothersome on 100 mg of quetiapine qhs. After some discussion, we will get CBC today and will initiate clozapine and as we do so, we will taper and stop the quetiapine. He additionally has been lightheaded. His PMD gave him midodrine 2.5 mg bid but they have not started it. I instructed them to start this and take 1 tab morning and 1 middday and to check sit/stand BPs for a week and report in as we may need to increase the dose, especially given the slight increase of carbi/levo. He desperately needs PT and ST and we will order both of these today to be done locally. I again informed of [employer] youtube channel exercises and PD Voice Project. The dyskinesia are well controlled with amantadine but there is no question this is likely worsening his hallucinations and lightheadedness so we will continue to monitor that. He takes propranolol for tremor and I would love to be able to stop it but previously when we tried cutting back propranolol, the tremor worsened so this was resumed. Once he is on a bit more carbi/levo, we may try to taper and stop this again. He has bothersome nightmares and RBD and I suggested 10-20 mg of melatonin. He does have bothersome forward neck flexion and we will ask PT to work on that. Dr. Akins saw him in the waiting room and did not think he would be a good candidate for botulinin to his neck given the forward flexion he already has (he examined him in December 2017 for me). He should be sure PMD has checked B12 and TSH. He may continue Citrucel and continue Senna for constipation. Mood is fairly depressed and high anxiety on venlafaxine 225 mg. He thinks he may be taking this twice/day and if so, that is far over the max dose and he needs to be taking it just once/day. We could certainly consider adding bupropion after these other changes are handled. He does not have a psychiatrist and seeing Dr. Ibarra in the future would also be an option. He had clear issues with thinking and memory though he feels his memory is good andthis is likely more MCI than dementia at this point but I do have concerns that DBS would not be a good option for his cognition. He may be a very good candidate for the sub-q pump when that becomes available. He is not interested in a cholinesterase inhibitor given the low likelihood it would work. Recs: 1. Stop Stalevo. Instead start carbi/levo regular release and rasagiline (aware of rare risk of serotonin syndrome). 2. We will get his CBC today and plan to switch from clozapine to quetiapine. They will let us know what lab they want to use in [place]. 3. Start melatonin 10-20 mg for RBD. 4. If he is really taking 500 mg of ER venlafaxine per day, he needs to cut back down to 225 mg/day. 5. Start midodrine 2.5 mg bid as planned by PMD. 6. Get sit to stand BPs and report in one week. 7. Increase salt and fluids. 8. Will consider adding bupropion for anxiety after we work on the BP and levodopa dosing. 9. Start PT and ST and we will rx. 10. Start PD Voice Project and [employer] youtube channel exercise classes. Assessment & Plan (05/01/2023 5:34 PM CDT): He has stage 2.5 parkinsonism, 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 He has asymmetric rest tremor, bradykinesia, and rigidity, consistent with idiopathic PD. There are no additional features to indicate other causes of parkinsonism. His symptoms have responded well to carbi/levo but he had difficulty with troublesome dyskinesia on higher doses of levodopa in the past christiano now takes a mix of Stalevo and levodopa but is still wearing off and having tremor breakthrough. The dyskinesia are well controlled with amantadine. He was recently found to have an infection, was hospitalized, then was in rehab for 6 weeks where he was very isolated and very little PT, OT, or ST actually occurred. He is no longer hallucinating with 100 mg of quetiapine though he did hallucinate while in rehab. He also has been lightheaded when arising from chairs. They should check sit to stand BPs for the next week and increase salt, fluids and caffeine. We may need to add a hypertensive agent. We tried cutting back propranolol but tremor worsened so this was resumed. Once BPs are controlled, we could increase his 1/2 tab doses of carbi/levo to 1 full pill (if this didn't worsen side effects) or could change doses to q 3 hours and he will consider these options. We will keep his levodopa doses the same given the lightheadedness and he is starting home PT and OT. He developed hallucinations and delusions with UTI and kidney stones but these are resolved since stopping ropinirole and adding quetiapine at bedtime. Dr. Akins did not think he would be a good candidate for botulinin to his neck given the forward flexion he already has (he examined him in December 2017 for me). He should be sure PMD has checked B12 and TSH. He may increase Miralax and continue Senna for constipation. He is bothered by urinary urgency and incontinence and I gave him the list of safe cognitive drugs for OAB. Mood is mildly depressed and high anxiety on venlafaxine (above max dose and insurance is refusing to cover) and when he tried to half dose in the past, irritability got worse. I offered to start bupropion in addition to venlafaxine today but we decided to hold off until his BPs and carbi/levo increases are straightened out. He had clear issues with thinking and memory today though he feels his memory is good. He is not interested in a cholinesterase inhibitor given the low likelihood it would work. Recs: 1. Same Stalevo, same carbi/levo for now, will consider increased carbi/levo only after we see his BPs. 2. Check BPs sit to stand and report in a week 3. Add salt, caffeine and nd fluids to prevent lightheadedness. 4. Gave list of safe drugs for OAB. 5. Same amantadine, same venlafaxine, same quetiapine. 6. Add more Miralax for constipation. 7. Will consider adding bupropion for anxiety after we work on the BP and levodopa dosing. Assessment & Plan (04/20/2023 9:47 AM CDT): Continues to have tremors but overall stable, participating in therapy and making improvements in his strength and endurance. Family has been provided caregiver education. Continue Sinemet, Stalevo. Follow up with Neurology Assessment & Plan (04/15/2023 10:57 AM CDT): Overall stable, patient has made good progress in therapy. Patient is hopeful to go home soon. Family is coming for caregiver education and assessment of patient's abilities to discuss possible discharge soon. Continue Sinemet, Stalevo Assessment & Plan (04/13/2023 9:41 PM CDT): Overall stable, making progress in therapy. Continue Stalevo, Sinemet, propranolol, amantadine Assessment & Plan (04/07/2023 4:28 PM CDT): Continue his sinemet Assessment & Plan (04/03/2023 11:36 AM CDT): Follows with Dr. Goncalves at [place]. Overall stable, continue amantadine 100 mg t.i.d., stalevo 1 tab plus carbidopa/levodopa 0.5 tabs 5 times per day, Seroquel, venlafaxine, propranolol. Assessment & Plan (11/09/2022 6:59 PM CDT): He has stage 2 parkinsonism, 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 He has asymmetric rest tremor, bradykinesia, and rigidity, consistent with idiopathic PD. There are no additional features to indicate other causes of parkinsonism. His symptoms have responded well to Sinemet but he had difficulty with troublesome dyskinesia on higher doses of Sinemet and ropinirole. Amantadine has been helpful for dyskinesias. He developed hallucinations and delusions related to PD but also in the setting of kidney stones and UTI, which have improved. He currently has benign hallucinations at night on quetiapine. Start of visit 12:14 pm End of visit 12:55 pm. Total time 43 min ?? Recommendations: 1. Continue stalevo 1 tab plus carbidopa/levodopa 0.5 tabs 5 times per day. 2. Continue amantadine. 3. Continue quetiapine, venlafaxine. 4. Continue propranolol. 5. I recommended a combination of Miralax and senna daily for constipation. I also discussed diet and fluid intake to help. 6. I encouraged him to continue regular exercise. 7. I discussed effects of infection on mood and thinking and that this should improve with treating his teeth and sinus problems. Assessment & Plan (04/18/2022 1:01 PM CDT): He has stage 2.5 parkinsonism, 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 He has asymmetric rest tremor, bradykinesia, and rigidity, consistent with idiopathic PD. There are no additional features to indicate other causes of parkinsonism. His symptoms have responded well to carbi/levo but he had difficulty with troublesome dyskinesia on higher doses of levodopa in the past christiano now takes a mix of Stalevo and levodopa. The dyskinesia are well controlled with amantadine but he notes more wearing off with bothersome tremor return. We could increase his 1/2 tab doses of carbi/levo to 1 full pill or could change doses to q 3 hours and he will consider these options. We will keep his levodopa doses the same and he recently finished PT and should start [employer]DA youtube channel exercises. He developed hallucinations and delusions with UTI and kidney stones but these are resolved since stopping ropinirole and adding quetiapine at bedtime. Dr. Akins did not think he would be a good candidate for botulinin to his neck given the forward flexion he already has (he examined him in December 2017 for me). He has occasional lightheadedness and does have some low blood pressures so we will keep an eye on that and if lightheaded, he should increase salt and fluids. We tried cutting back propranolol but tremor worsened so this was resumed. He should be sure PMD has checked B12 and TSH. He may take Miralax for constipation. Mood is mildly depressed on venlafaxine max dose and when he tried to half dose in the past, irritability got worse. I offered to start bupropion in addition to venlafaxine today but he would like to consider that. He had clear issues with thinking and memory today though he feels his memory is good. He was here alone ( dropped him off) so there was no one with whom to corroborate. He is not interested in a cholinesterase inhibitor given the low likelihood it would work. He refused cog testing today as he had to meet his ride. Recs: 1. Same Stalevo, same carbi/levo. 2. Gave info on APDA youtube channel exercises. 3. Add caffeine--coffee or 1/2 to 1 caffeine pill at breakfast and lunch for daytime sleepiness. 4. Add salt and fluids to prevent lightheadedness. 5. Same amantadine, same venlafaxine, same quetiapine. 6. Add Miralax for constipation. 7. Be sure PMD has checked TSH and B12 recently. Assessment & Plan (11/11/2021 10:05 PM CDT): He has stage 2 parkinsonism, 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 He has asymmetric rest tremor, bradykinesia, and rigidity, consistent with idiopathic PD. There are no additional features to indicate other causes of parkinsonism. His symptoms have responded well to Sinemet but he had difficulty with troublesome dyskinesia on higher doses of Sinemet and ropinirole. Amantadine has been helpful for dyskinesias. He developed hallucinations and delusions related to PD but also in the setting of kidney stones and UTI, which have improved. He currently has benign hallucinations at night on quetiapine. Start of visit 12:01 pm End of visit 1::02pm. Total time 62 min ?? Recommendations: 1. Continue stalevo 1 tab plus carbidopa/levodopa 0.5 tabs 5 times per day. 2. Continue amantadine. 3. Continue quetiapine, venlafaxine. 4. Continue propranolol. 5. Miralax and colace daily for constipation. I also discussed diet and fluid intake to help. 6. I encouraged him to continue regular exercise. 7. I discussed anxiety and option of changing or adding medication. He is on a good dose of venlafaxine and he feels it has been helpful in the past and prefers not to change medication. I discussed finding the right balance with his involvement in his roman catholic and family issues and focusing more on exercise. 8. I sent new scripts to [facility] mail order since they recently changed insurance. Assessment & Plan (08/16/2021 4:58 PM BROADCAST DIRECTOR OPERATIONS): He has stage 2.5 parkinsonism, 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 He has asymmetric rest tremor, bradykinesia, and rigidity, consistent with idiopathic PD. There are no additional features to indicate other causes of parkinsonism. His symptoms have responded well to Sinemet but he had difficulty with troublesome dyskinesia on higher doses of Sinemet in the past. These are controlled with amantadine. We will keep his levodopa doses the same and will start PT. He developed hallucinations and delusions with UTI and kidney stones but these are resolved since stopping ropinirole and adding quetiapine low dose at bedtime. Dr. Akins did not think he would be a good candidate for botulinin to his neck given the forward flexion he already has (he examined him in December 2017 for me). He has occasional lightheadedness and does have some low blood pressures so we will keep an eye on that and if lightheaded, he should increase salt and fluids. Since he has bothersome fatigue and this is in fact his biggest issue today, we will attempt to cut back and stop propranolol to see if he really needs this for his tremor as it can cause fatigue, low HR (61 HR today) and lightheadedness. He should be sure PMD has checked B12 and TSH. He may take Miralax for constipation. Mood is good on venlafaxine and when he tried to half dose in the past, irritability got worse. He had clear issues with thinking and memory today though he feels his memory is good. He was here alone ( dropped him off) so there was no one with whom to corroborate. This is another reason that B12 and TSh should be checked. Recs: 1. Same Stalevo, same carbi/levo. 2. Start PT we will give rx. 3. Add caffeine--coffee or 1/2 to 1 caffeine pill at breakfast and lunch for daytime sleepiness. 4. Add salt and fluids to prevent lightheadedness. 5. Same amantadine, same venlafaxine, same quetiapine. 6. May add Miralax for constipation. 7. Be sure PMD has checked TSH and B12 recently. 8. Try to taper and stop propranolol and see if fatigue and lightheadedness improves and if tremor worsens without it. Assessment & Plan (02/13/2021 7:13 PM CDT): He has stage 2 parkinsonism, 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 He has asymmetric rest tremor, bradykinesia, and rigidity, consistent with idiopathic PD. There are no additional features to indicate other causes of parkinsonism. His symptoms have responded well to Sinemet but he had difficulty with troublesome dyskinesia on higher doses of Sinemet and ropinirole. Amantadine has been helpful for dyskinesias. He developed hallucinations and delusions related to PD but also in the setting of kidney stones and UTI, which have improved and he continues to take quetiapine. He is having more weakness and fatigue, and his motor symptoms may be undertreated since he no longer has any??dyskinesia. Start of visit 2:57 pm End of visit 3:26pm. Total time 39 min ?? Recommendations: 1. Continue stalevo at the same dose, but add an additional 0.5 tabs carbidopa/levodopa with each dose of stalevo 2. Continue amantadine. 3. Continue quetiapine, venlafaxine. 4. Continue propranolol. 5. I encouraged him to continue regular exercise. Assessment & Plan (08/27/2020 6:32 PM BROADCAST DIRECTOR OPERATIONS): He has stage 2.5 parkinsonism at last in-person visit, 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 He has asymmetric rest tremor, bradykinesia, and rigidity, consistent with idiopathic PD. There are no additional features to indicate other causes of parkinsonism. His symptoms have responded well to Sinemet but he had difficulty with troublesome dyskinesia on higher doses of Sinemet and in the past. These are controlled with amantadine. He developed hallucinations and delusions with UTI and kidney stones but these are resolved since stopping ropinirole and adding quetiapine. He ran out of amantadine recently and noted dyskinesia was severe and wearing off was worse. He is better with amantadine back on board but still has some wearing off with tremor return. At this point, he is not interested in adding regular acting carbi/levo (currently on 200 mg Stalevo) or in pushing doses closer together. Dr. Akins did not think he would be a good candidate for botulinin to his neck given the forward flexion he already has (he examined him in December 2017 for me). He may be a good DBS candidate in the future. He denies lightheadedness but does have some low blood pressures so we will keep an eye on that. He tried cutting back propranolol and thought that his tremor was worse. He would benefit from PT. Mood is good on venlafaxine. He has fatigue but says that B12 and TSH have been checked by his PMD. He could try adding caffeine. Recs: 1. Same Stalevo. 2. Start PT we will send rx. 3. Add caffeine--coffee or 1/2 to 1 caffeine pill at breakfast and lunch. 4. Same amantadine, same venlafaxine, same propranolol, same quetiapine. 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 He has asymmetric rest tremor, bradykinesia, and rigidity, consistent with idiopathic PD. There are no additional features to indicate other causes of parkinsonism. His symptoms have responded well to Sinemet but he had difficulty with troublesome dyskinesia on higher doses of Sinemet and ropinirole in the past. These are controlled with amantadine. He developed hallucinations and delusions with UTI and kidney stones but these are much better since stopping ropinirole and adding quetiapine. He recently increased Stalevo at a few of his doses and this made a big difference but he is still having wearing off so we will attempt to increase all Stalevo doses to the 200 mg formulation (vs every other dose at 150). He tried cutting back on amantadine but wearing off and dyskinesia became much worse. He was able to taper and stop baclofen. If hallucinations and delusions worsen again, we may need to transfer from quetiapine to clozapine. Dr. Akins did not think he would be a good candidate for botulinin to his neck given the forward flexion he already has (he examined him in December 2017 for me). He may be a good DBS candidate in the future. He denies lightheadedness but does have some low blood pressures so we will keep an eye on that. He tried cutting back propranolol and thought that his tremor was worse. He would benefit from PT. Mood is good on fairly low dose venlafaxine. He complains of fatigue but had CBC, CMP, TSH recently checked. I asked him to be sure his PMD has checked B12 and to try caffeine if he would like. Recs: 1. Increase Stalevo to 200 mg at all doses for wearing off and worsened tremor. Watch for side effects and if that happens, let us know. 2. Be sure PMD has checked B12 (TSH was recently checked) for cause of fatigue. 3. Add caffeine--coffee or 1/2 to 1 caffeine pill at breakfast and lunch. 4. Same amantadine, same venlafaxine, same propranolol, same quetiapine. Assessment & Plan (05/06/2019 5:58 PM CDT): He has stage 2 parkinsonism, 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 He has asymmetric rest tremor, bradykinesia, and rigidity, consistent with idiopathic PD. There are no additional features to indicate other causes of parkinsonism. His symptoms have responded well to Sinemet but he had difficulty with troublesome dyskinesia on higher doses of Sinemet and ropinirole. Amantadine has been helpful for dyskinesias. He developed hallucinations and delusions related to PD but also in the setting of kidney stones and UTI, which have improved and he continues to take quetiapine. His motor symptoms are well controlled on his current dosing and he is not having significant difficulty with wearing off or dyskinesias. ?? Start of visit 1:30pm, End of visit 2:10pm. More than 50% of the visit was devoted to counseling and coordination of care. ?? Recommendations: 1. Continue stalevo at the same dose. 2. Continue amantadine bid. 3. Continue quetiapine, venlafaxine. 4. Continue propranolol. 5. I encouraged him to continue regular exercise. Assessment & Plan (03/09/2019 12:51 PM CDT): He has stage 2 parkinsonism, 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 He has asymmetric rest tremor, bradykinesia, and rigidity, consistent with idiopathic PD. There are no additional features to indicate other causes of parkinsonism. His symptoms have responded well to Sinemet but he had difficulty with troublesome dyskinesia on higher doses of Sinemet and ropinirole. He has developed hallucinations and delusions related to PD that have improved but not completely resolved after tapering ropinirole and starting quetiapine. He is having more difficulty with motor symptoms after stopping ropinirole. We can adjust his levodopa dose (stalevo) but may worsen hallucinations and delusions . Since some of his difficulty may be related to him not taking doses on schedule according to his , we should try to address this first before adjusting his dose. ?? Start of visit 3:30pm, End of visit 4:15pm. More than 50% of the visit was devoted to counseling and coordination of care. ? Recommendations: I discussed methods such as setting alarms with his smartphone to improve his consistency with stalevo. He should try this for at least 1 week then let us know how it is working. Resuming amantadine may also be helpful. We can consider a slight increase in stalevo to 200 alternating with 150, and if needed 200 q 3 hours. I discussed that an increase in stalevo/levodopa dose may worsen hallucinations and delusions. We may be able to continue to adjust quetiapine if needed for hallucinations or may need to change to clozapine. I encouraged him to continue regular exercise. 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 He has asymmetric rest tremor, bradykinesia, and rigidity, consistent with idiopathic PD. There are no additional features to indicate other causes of parkinsonism. His symptoms have responded well to Sinemet but he had difficulty with troublesome dyskinesia on higher doses of Sinemet and ropinirole. These are controlled with amantadine. He developed hallucinations and delusions with UTI and kidney stones but these are much better since stopping ropinirole and adding quetiapine. . At this point though, hallucinations and suspiciousness are rare. He recently increased Stalevo at a few of his doses and this made a big difference. He tried cutting back on amantadine but wearing off and dyskinesia became much worse. He tried stopping baclofen but neck pain was severe. He still would like to increase all doses of Stalevo to the 200 mg formulation but I prefer for him to stay on the dose he is in now given the occasional hallucinations and lack of wearing off. If hallucinations and delusions worsen again, we may need to transfer from quetiapine. Dr. Akins did not think he would be a good candidate for botulinin to his neck given the forward flexion he already has (he examined him in December 2017 for me). He may be a good DBS candidate in the future. He has been lightheaded recently and needs to check BPs and use preventative conservative measures. If BPs are too low, we may need to decrease propranolol or stop tamsulosin. Recs: 1. Try first dose of Stalevo on empty stomach or may chew/dissolve them for faster kick in. 2. Increase salt, fluids, caffeine, check BPs x 1 week and report in. If needed, we will cut back on propranolol. 3. Same propranolol, amantadine, Stalevo, venlafaxine ER, baclofen, quetiapine. 4. May try ibuprofen acetaminophen to see if this helps neck pain. 5. Continue with PT. 6. Strict fall precautions. 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 He has asymmetric rest tremor, bradykinesia, and rigidity, consistent with idiopathic PD. There are no additional features to indicate other causes of parkinsonism. His symptoms have responded well to Sinemet but he had difficulty with troublesome dyskinesia on higher doses of Sinemet and ropinirole. In the setting of UTI and kidney stones, he developed hallucinations and delusions related to PD that have improved but not completely resolved after tapering ropinirole and starting quetiapine. At this point though, hallucinations and suspiciousness are rare. He recently increased Stalevo at a few of his doses and this made a big difference. He tried cutting back on amantadine but wearing off and dyskinesia became much worse. He tried stopping baclofen but neck pain was severe. He still would like to increase all doses of Stalevo to the 200 mg formulation but I prefer for him to have the kidney stones resolved and to complete PT and OT before making a further increase and we discussed the reasoning for that. If hallucinations and delusions worsen again, we may need to transfer from quetiapine to clozapine and we discussed that as well today. Dr. Akins did not think he would be a good candidate for botulinin to his neck given the forward flexion he already has (he examined him in December 2017 for me). He may be a good DBS candidate in the future. Recs: 1. Start PT, start OT. Rxs given. 2. Same Stalevo, amantadine, quetiapine, venlafaxine, propranolol. 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 Continue Seroquel 100 mg q.h.s., venlafaxine 150 mg daily, Neck pain 08/17/2012 Depression 09/29/2011 Assessment & Plan (04/20/2023 9:47 AM CDT): Mood stable, patient cooperative with care, no behaviors. Continue venlafaxine, amantadine, Seroquel Assessment & Plan (04/15/2023 11:00 AM CDT): Mood stable, cooperative with care and making progress in therapy. Continue venlafaxine, amantadine Assessment & Plan (04/08/2023 8:17 PM CDT): Mood overall stable, patient cooperative with care. Continue venlafaxine Assessment & Plan (04/07/2023 4:35 PM CDT): Venlafaxine xr Anxiety 04/03/2011 Encounters Date Type Department Care Team Description 08/29/2024 Telephone [facility] Scheduling [address] [place] [address] Stone Goncalves MD PhD Scheduling Appointments from Last 3 Months Immunizations Name Administration Dates Next Due ZOSTER LIVE 05/19/2013 Social History Tobacco Use Types Packs/Day Years Used Date Smoking Tobacco: Never Smokeless Tobacco: Never Tobacco Cessation:Counseling Given: Not Answered Social Connection and Isolat ion Panel [NHANES] Answer Date Recorded In a typical week, how many times do you talk on the phone with family, friends, or neighbors? More than three times a week 03/27/2023 How often do you get togethe r with friends or relatives? More than three times a week 03/27/2023 How often do you attend chur ch or yazidism services? 1 to 4 times per year 03/27/2023 Do you belong to any clubs o r organizations such as roman catholic groups, unions, fraternal or athletic groups, or school groups? Yes 03/27/2023 How often do you attend meet ings of the clubs or organizations you belong to? 1 to 4 times per year 03/27/2023 Are you , , di vorced, , never , or living with a partner? 03/27/2023 Overall Financial Resource Strain (CARDIA) Answe r Date Recorded How hard is it for you to pa y for the very basics like food, housing, medical care, and heating? Not hard at all 03/27/2023 Hunger Vital Sign Answer Date Recorded Within the past 12 months, y ou worried that your food would run out before you got the money to buy more. Never true 03/27/20 23 Within the past 12 months, t he food you bought just didn't last and you didn't have money to get more. Never true 03/27/2023 PRAPARE - Transportation Answer Date Re corded In the past 12 months, has l ack of transportation kept you from medical appointments or from getting medications? No 03/01 In the past 12 months, has l ack of transportation kept you from meetings, work, or from getting things needed for daily living? No 03/27/2023 Personal Safety Answer Date Recorded Getting School Help Needed Not on file 04/17 Sex and Gender Information Value Date Recorded Sex Assigned at Not on file Legal Sex Male 3:14 AM BROADCAST DIRECTOR OPERATIONS Gender Identity Not on file Sexual Orientation Not on file Obstetrics History Last Filed Vital Signs Vital Sign Reading Time Taken Comments Blood Pressure 119/73 12/30/2023 2:06 PM CDT Pulse 71 12/30/2023 2:06 PM CDT Temperature 36.1 ??C (97 ??F) 05/01/2023 1:23 PM CDT Respiratory Rate 20 04/20/2023 9:23 AM CDT Oxygen Saturation 94% 04/20/2023 9:23 AM CDT Inhaled Oxygen Concentration - - Weight 59.1 kg (130 lb 6.4 oz) 12/30/2023 2:06 P M CDT Height 190.5 cm (6' 3 ) 12/30/2023 2:06 PM CDT Body Mass Index 16.3 12/30/2023 2:06 PM CDT Plan of Treatment Health Maintenance Due Date Last Done Comments Hepatitis C Screening 1945 DTaP/Tdap/Td Vaccine (1 - Tdap) 1956 Hepatitis B Screening 1963 Pneumococcal vaccine 65+ (1 of 1 - PCV) 2010 Well Visit 65+ 2010 Zoster Vaccine (2 of 3) 07/14/2013 05/19/2013 Fall Risk Assessment 04/02/2024 04/02/2023 Depression Screening 05/01/2024 05/01/2023 Influenza Vaccine (#1) 2024 Insurance COMMERCIAL GENERIC [employer] MEDICARE PPO HU[employer] CHOICE MEDICARE PPO HU[employer] CHOICE MEDICARE PPO Advance Directives For more information, please contact: [phone] * Full Code (Latest Code Status on File) Date Activated Date Inactivated Comments 03/26/2023 10:27 PM 04/02/2023 8:01 PM Care Teams Production Tester Relationship Specialty Start Date End Date Eduardo Urena MD [address] [place] [address] PCP - General 12/07/13 Donavan Monroe MD [address] [place] [address] Consulting Physician Pulmonary Disease 04/02/23
--- OUTSIDE RECORDS SUMMARY | 2024-09-28 09:01 | XMS_ITS | Continuity of Care Document ---
Author Organization [facility] Address [address] [place] [address] Phone Care Team Providers Care Medical Planner Name Role Phone Hwang OD, Ryan Unavailable Unavailable Advance Directives Directive Yes / No Effective Date File Name No Information Encounters Encounter Description Practice Location Reason(s) For Visit Diagnoses Date Provider Providers Copied on Encounter [facility], [address], [place], [place], [id number], [place] tel:[phone] [facility] No Information Nov-2 7-200 0 Hwang OD Ryan. [address] , [address], [place], [address], [place]. tel:[phone] Family History Family Member Type Diagnosis Age At Onset No Information Payers Payer name Insurance type Covered alliance party ID Authoriza tion(s) No Information Social History Type Description Quantity Date Captured Comments Sex Male Smoking Status No Information Chief Complaint And Reason For Visit No Information Reason For Referral Reason For Referral No Information History Of Present Illness Encounter Date Complaint History Of Prese nt Illness No Information Functional Status Date Functional Assessmen t No Information Instructions Date Instruction Additional Infor mation No Information Assessments Type Assessment Date No Information Patient Care Teams Name Effective Dates (start - stop) Status Members No Information
--- OUTSIDE RECORDS SUMMARY | 2024-09-28 09:01 | XMS_ITS | Referral Summary ---
Author Organization [facility] [address] [facility] [address] [facility] [address] [place] [address] Care Team Providers Care Construction Management Instructor Name Role Phone Eduardo Urena MD Primary Care Provider Donavan Monroe MD Unavailable [phone] Encounters Date Type Department Care Team Description 08/29/2024 Telephone [facility] Scheduling [id number] Stone Gonclaves MD PhD Scheduling Appointments from Last 3 Months Allergies No known active allergies Medications polyethylene [...] 1 tablet (1 mg total) 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 Patient is cooperative [...] no ocular cause; consider refer to low supervisor customer records division for possible tint in glasses Dyskinesia due [...] be done locally. I again informed of [employer] Risk Management channel exercises and PD Voice Project. The [...] 10. Start PD Voice Project and APDA [employer]icescape channel exercise classes. Assessment & Plan (05/01/2023 [...] AM CDT): Follows with Dr. Goncalves at [facility]. Overall stable, continue amantadine 100 mg t.i.d., [...] right balance with his involvement in his temple and family issues and focusing more on exercise. 8. I sent new scripts to [facility] mail order since they recently changed insurance. Assessment & Plan (08/16/2021 4:58 PM MANAGER FIELD SERVICE): He has stage 2.5 parkinsonism, probable idiopathic [...] exercise. Assessment & Plan (08/27/2020 6:32 PM MANAGER FIELD SERVICE): He has stage 2.5 parkinsonism at last [...] quetiapine. Assessment & Plan (10/27/2019 12:28 PM MANAGER FIELD SERVICE): He has stage 2.5 parkinsonism, probable idiopathic [...] precautions. Assessment & Plan (09/29/2018 3:50 PM MANAGER FIELD SERVICE): He has stage 2.5 parkinsonism, probable idiopathic [...] 4:35 PM CDT): Venlafaxine xr Anxiety 04/03/2011 Immunizations Name Administration Dates Next Due ZOSTER [...] often do you attend chur ch or congregation services? 1 to 4 times per year 03/27/2023 Do you belong to any clubs o r organizations such as temple groups, unions, fraternal or athletic groups, or [...] on file Legal Sex Male 3:14 AM MANAGER FIELD SERVICE Gender Identity Not on file Sexual Orientation Not on file Last Filed Vital Signs Vital Sign Reading [...] 12/30/2023 2:06 PM CDT Plan of Treatment Not on file Insurance [employer]ER[employer] [place] [address] [place] [id number] HU[employer] CHOICE MEDICARE PPO HU[employer]NA CHOICE MEDICARE PPO HUMANA CHOICE MEDICARE PPO Advance Directives For more information, please contact: [phone] * Full Code (Latest Code Status on File) Date Activated Date Inactivated Comments 03/26/2023 10:27 PM 04/02/2023 8:01 PM Care Teams Construction Management Instructor Relationship Specialty Start Date End Date Eduardo Urena MD [address] [place] [address] PCP - General 12/07/13 Donavan Monroe MD [address] [facility] [address] [place] [address] Consulting Physician Pulmonary Disease 04/02/23
[2024-09-28 09:11] LABS: Add Urine Microscopic? YES; Appearance Urine Clear (Clear); Bacteria Urine None Seen /hpf; Bilirubin Urine Negative (Negative); Blood Urine Trace (Negative); Color Urine Dark Yellow (Yellow); Glucose Urine UA Negative (Negative); Ketones Urine Trace mg/dL (Negative); Leukocyte Esterase Ur Trace LEU/UL (Negative); Nitrate Urine Negative (Negative); Protein Urine Negative (Negative); Specific Grav Ur 1.021 (1.001-1.035); Squamous Epithelial Cell Urine None Seen /hpf (Few); Urobilinogen Urine 0.2 mg/dL (<2.0); WBC Urine 0-5 /hpf (0-3)
== END 2024-09-28 08:39 | disposition home or self-care (01) ==
PROVIDERS: PCP Family Medicine; Visit Provider Student in an Organized Health Care Education/Training Program
DX: R35.0 Frequency of micturition (principal)
CPT/HCPCS: 81001

== ENCOUNTER 2025-08-09 16:31 | Outpatient (CLI) | payer MEDICARE, SELFPAY ==
--- NOTE | ~2025-08-09 | XR_ITS ---
EXAMINATION: XR chest 2V, 08/09/2025 17:15 MILLINERY COPYIST HISTORY: R05.9 - Cough, unspecified COMPARISON: No comparisons available. Technique: 2 views obtained. Findings: COPD changes, there are scattered small infiltrates. No pneumothorax. Heart is normal size. Mediastinal and hilar contours are within normal limits. Bony thorax no acute abnormality. Impression: Early bilateral pneumonia Reviewed, dictated and finalized at location P. INERY COPYIST Impression: Early bilateral pneumonia
[2025-08-09 17:18] LABS: Hematocrit 36.7 % (42.0-52.0); Hemoglobin 11.7 g/dL (14.0-18.0); Immature Granulocyte Percent A 0.3 % (0-0.5); Lymphocytes Absolute Auto 0.69 K/mm3 (0.9-3.2); Mean Corpuscular HGB Conc 31.9 g/dl (32-36); Mean Corpuscular Hemoglobin 30.2 pg (26-34); Mean Corpuscular Volume 94.8 fl (80-100); Nucleated Red Blood Cells Absolute Auto 0.000 K/mm3 (0.0-0.012); Nucleated Red Blood Cells Perc 0.0 % (0.0-0.2); Platelet Count Result 213 k/mm3 (150-375); Red Blood Count 3.87 M/mm3 (4.6-6.20); White Blood Count 14.8 K/mm3 (4.5-10.0)
[2025-08-09 17:48] LABS: Alanine Aminotransferase 11 U/L (6-50); Albumin Level 4.1 g/dL (3.5-5.1); Alkaline Phosphatase 113 U/L (38-126); Anion Gap 7 mmol/L (4-12); Aspartate Amino Transferase 23 U/L (17-59); Bilirubin,Total 0.6 mg/dL (0.2-1.3); Blood Urea Nitrogen 33 mg/dL (9-20); Calcium 9.3 mg/dL (8.4-10.2); Carbon Dioxide 27 mmol/L (22-30); Chloride 105 mmol/L (98-107); Estimated Glomerular Filt Rate 54; Glucose 72 mg/dL (65-110); Magnesium 2.1 mg/dL (1.6-2.3); Potassium 4.6 mmol/L (3.4-5.0); Sodium 139 mmol/L (137-145); Total Protein 8.0 g/dL (6.3-8.2)
[2025-08-09 18:24] LABS: Thyroid Stimulating Hormone 14.200 uIU/mL (0.465-4.680)
[2025-08-09 18:59] LABS: Vitamin B12 524.0 pg/mL (239-931)
== END 2025-08-09 16:32 | disposition home or self-care (01) ==
PROVIDERS: PCP Family Medicine; Visit Provider Physician Assistant Medical
DX: E78.2 Mixed hyperlipidemia (principal); I10 Essential (primary) hypertension; E03.9 Hypothyroidism, unspecified; E55.9 Vitamin D deficiency, unspecified; G20.B1 Parkinson's disease with dyskinesia, without mention of fluctuations; R05.9 Cough, unspecified; R06.02 Shortness of breath; R13.10 Dysphagia, unspecified; R35.0 Frequency of micturition; E46 Unspecified protein-calorie malnutrition
CPT/HCPCS: 36415; 71046; 80053; 82306; 82607; 82746; 83735; 84443; 85025

== ENCOUNTER 2025-08-21 16:42 | Outpatient (CLI) | payer MEDICARE, SELFPAY ==
--- NOTE | ~2025-08-21 | XR_ITS ---
XR chest 2V 08/21/2025 17:08 Indication: Cough Procedure: 2 view chest Comparison: Comparison to multiple prior studies sequentially, with oldest reviewed study dated 03/21/2023. Findings: The lungs are hyperinflated which is consistent with, but not diagnostic of chronic obstructive pulmonary disease. Heart size normal. Healed left lower rib fractures. Chronic left basilar infiltrates, likely atelectasis/scarring from prior pneumonia. No acute focal pneumonia, pleural effusion or pneumothorax. Ill-defined right perihilar nodular asymmetry. Impression: 1: Chronic left basilar infiltrates, most likely atelectasis/scarring. 2: Ill-defined right perihilar nodular asymmetry. Follow-up CT chest recommended to exclude underlying mass. Reviewed, dictated and finalized at location [facility] Impression: 1: Chronic left basilar infiltrates, most likely atelectasis/scarring. 2: Ill-defined right perihilar nodular asymmetry. Follow-up CT chest recommend ed to exclude underlying mass.
[2025-08-21 17:00] LABS: Hematocrit 36.0 % (42.0-52.0); Hemoglobin 11.3 g/dL (14.0-18.0); Immature Granulocyte Percent A 0.4 % (0-0.5); Lymphocytes Absolute Auto 0.74 K/mm3 (0.9-3.2); Mean Corpuscular HGB Conc 31.4 g/dl (32-36); Mean Corpuscular Hemoglobin 30.2 pg (26-34); Mean Corpuscular Volume 96.3 fl (80-100); Nucleated Red Blood Cells Absolute Auto 0.000 K/mm3 (0.0-0.012); Nucleated Red Blood Cells Perc 0.0 % (0.0-0.2); Platelet Count Result 208 k/mm3 (150-375); Red Blood Count 3.74 M/mm3 (4.6-6.20); White Blood Count 7.7 K/mm3 (4.5-10.0)
[2025-08-21 17:19] LABS: Add Urine Microscopic? YES; Appearance Urine Clear (Clear); Glucose Urine UA Negative (Negative); Leukocyte Esterase Ur Negative LEU/UL (Negative); Need Manual Microscopic Reviewed; Nitrate Urine Negative (Negative); Specific Grav Ur 1.023 (1.001-1.035)
--- OUTSIDE RECORDS SUMMARY | 2025-08-21 17:20 | XMS_ITS | Patient Health Record ---
Author Organization [facility] Address [address] [place] [address] Care Team Providers Care Cargo Supervisor Name Role Phone Claudine Gerber Unavailable [phone] Reason For Referral No Information Medications Medication SIG (Take, Route, Frequency, Duration) Notes Start Date End Date Status Synthroid 50 MCG Tablet Oral 08/07/2023 Active Santyl 250 UNIT/GM Ointment External 08/07/2023 Active QUEtiapine Fumarate 100 MG Tablet Oral 08/07/2023 Active Cephalexin 500 MG Capsule Oral 08/07/2023 Active Propranolol HCl 20 MG Tablet Oral 08/07/2023 Active Ciprofloxacin HCl 500 MG Tablet Oral 08/07/2023 Active Xarelto 10 MG Tablet Oral 08/07/2023 Active Venlafaxine HCl ER 150 MG Capsule Extended Release 24 Hour Oral 08/07/2023 Active QUEtiapine Fumarate 150 MG Tablet Oral *Pick strength-form from [facility] for eRX* 08/07/2023 Active Cefadroxil 500 MG Capsule Oral 08/07/2023 Active Clindamycin HCl 300 MG Capsule Oral 08/07/2023 Active Mupirocin 2% Ointment External 08/07/2023 Active Atorvastatin Calcium 10 MG Tablet Oral 08/07/2023 Active Amoxicillin-Pot Clavulanate 500-125 MG Tablet Oral 08/07/2023 Active SilvaSorb Gel External 08/07/2023 Activ e predniSONE 10 MG Tablet Oral 08/07/2023 Active Doxycycline Hyclate 100 MG Capsule Oral 08/07/2023 Active Florastor 250 MG Capsule Oral 08/07/2023 Active Triamcinolone Acetonide 0.1% Cream External 08/07/2023 Active oxyCODONE HCl 5 MG Tablet Oral 08/07/2023 Active Akyirtxwo-Xllzsore-Ssq acapone 50-200-200 mg Tablet Oral 08/07/2023 Active Amantadine HCl 100 MG Capsule Oral 08/07/2023 Active Doxycycline Monohydrate 100 MG Tablet Oral 08/07/2023 Active Terbinafine HCl 250 MG Tablet Oral 08/07/2023 Active predniSONE 5 MG Tablet Oral 08/07/2023 Active oxyCODONE-Acetaminophe n 5-325 MG Tablet Oral 08/07/2023 Active Tacrolimus 0.1 % Ointment External 08/07/2023 Active Levothyroxine Sodium 75 MCG Tablet Oral 08/07/2023 Active Social History Social History Additional Details Category Social Info Options Details Migrated Social History Migrated Social History Alcohol Intake: Occasional 06/10/2018,Tobacco Years: Never smoker 06/10/2018 Plan Of Treatment No Information Insurance Providers Payer Name Payer Address Payer Phone Subscriber Number Group Number Insured Name Patient Relationship to Insured Coverage Start Date Coverage End Date [employer] Medicare Replacemen t/Advantag e - P[place] [address] [address] [place] [address] [id number] JOE Self - patient is the insured Medical (General) History Surgical History Surgery Date(Month/Year) Sinus surgery 08/31/2022 Any surgical history 02/28/2023
--- OUTSIDE RECORDS SUMMARY | 2025-08-21 17:20 | XMS_ITS | Clinical Summary ---
Author Organization [facility] [address] [facility] [address] [place] [address] Care Team Providers Care Sourcing Analyst Name Role Phone Eduardo Urena MD Primary Care Provider Donavan Monroe MD Unavailable [phone] Allergies No known active allergies Medications polyethylene glycol (MIRALAX) 17 gram/dose bulk powder Take 17 g by mouth daily 3 Active midodrine (PROAMATINE) 2.5 mg tablet Take 1 tab in the morning and 1 tab midday. 4 Active Synthroid 50 mcg tablet 4 Active omeprazole (PriLOSEC) 40 mg capsule 5 Active fluticasone propionate (FLONASE) 50 mcg/actuation nasal spray 5 Active benzonatate (TESSALON) 100 mg capsule 5 Active carbidopa-levodopa (SINEMET) 25-100 mg per tabletIndications: Parkinson's disease with dyskinesia and fluctuating manifestations (HCC) Take 2 tablets by mouth 5 (five) times a day 0600, 0930, 1300, 1630, 2000 900 tablet 3 5 10/13/19 26 Active propranoloL (INDERAL) 20 mg tablet TAKE 1 TABLET TWICE A DAY 180 tablet 3 5 Active amantadine (SYMMETREL) 100 mg capsuleIndications :Parkinson's disease (HCC) TAKE 1 CAPSULE THREE TIMES A DAY 270 capsule 3 5 Active venlafaxine XR (EFFEXOR-XR) 150 mg 24 hr capsule Take 1 capsule (150 mg total) by mouth daily with breakfast Along with 75 mg capsule, for a daily total of 225mg 90 capsule 3 5 02/03/20 Active venlafaxine XR (EFFEXOR-XR) 75 mg 24 hr capsule Take 1 capsule (75 mg total) by mouth daily Along with 150 mg capsule, for a daily total of 225mg 90 capsule 3 5 02/03/20 Active QUEtiapine (SEROquel) 100 mg tablet TAKE 1 TABLET NIGHTLY 90 tablet 3 Active atorvastatin (LIPITOR) 10 mg tablet TAKE 1 TABLET DAILY 90 tablet 3 5 Active mirtazapine (REMERON) 15 mg tablet Take 1 tablet (15 mg total) by mouth nightly 90 tablet 3 5 05/11/20 26 Active QUEtiapine (SEROquel) 25 mg tablet Take 1 tablet (25 mg total) by mouth nightly With one 100 mg tab for total dose of 125 mg at bedtime. 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 Protein-calorie malnutrition, severe 03/27/2023 Assessment & Plan (04/20/2023 9:46 AM [...] no ocular cause; consider refer to low television service engineer for possible tint in glasses Dyskinesia due [...] annually Parkinson's disease 07/30/2016 Assessment & Plan (05/14/2025 4:01 PM CDT): He has stage 2 parkinsonism, [...] at night on quetiapine. Start of visit 12:20 pm End of visit 1:01 pm. Total time 44 min Recommendations: 1. Continue carbidopa/levodopa 25/100 2 tabs 5 times per day. 2. Continue amantadine. 3. Continue quetiapine. 4. Continue venlafaxine. 5. Add mirtazapine 15 mg nightly for depressive symptoms. It may also improve appetite. 6. Continue propranolol. 7. Continue Miralax daily for constipation. 8. I encouraged regular exercise and walking. 9. I provided a referral to ST for dysphagia 10. I provided a referral to PT. 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 Start of visit 11:10 am End of visit 12:07 pm. Total time 60 min Recommendations: 1. Change stalevo 200 1 tab to carbidopa/levodopa 25/100 2 tabs 5 times per day. I discusssed the option of adding rasagiline in place of entacapone but they would like to minimize medication and we can try this change first, with the option to move doses closer together (every 3 hours) or to increase the dose to 2.5 tabs. 2. Continue amantadine. 3. Continue quetiapine, venlafaxine. I discussed the option of clozapine but they would like to hold off for now. 4. Continue propranolol. 5. Continue Miralax and daily for constipation. 6. I encouraged him to continue regular exercise. 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 Assessment & Plan (12/30/2023 3:17 PM CDT): [...] be done locally. I again informed of [employer] channel exercises and [employer]. [...] AM CDT): Follows with Dr. Goncalves at [place]. Overall stable, continue amantadine 100 mg t.i.d., [...] visit 12:55 pm. Total time 43 min Recommendations: 1. Continue stalevo 1 tab plus [...] of visit 1::02pm. Total time 62 min Recommendations: 1. Continue stalevo 1 tab plus [...] right balance with his involvement in his alevism and family issues and focusing more on exercise. 8. I sent new scripts to [facility] mail order since they recently changed insurance. Assessment & Plan (08/16/2021 4:58 PM GENERAL DOC): He has stage 2.5 parkinsonism, probable idiopathic [...] be undertreated since he no longer has any dyskinesia. Start of visit 2:57 pm End of visit 3:26pm. Total time 39 min Recommendations: 1. Continue stalevo at the same dose, but add an additional 0.5 tabs carbidopa/levodopa with each dose of stalevo 2. Continue amantadine. 3. Continue quetiapine, venlafaxine. 4. Continue propranolol. 5. I encouraged him to continue regular exercise. Assessment & Plan (08/27/2020 6:32 PM GENERAL DOC): He has stage 2.5 parkinsonism at last [...] quetiapine. Assessment & Plan (10/27/2019 12:28 PM GENERAL DOC): He has stage 2.5 parkinsonism, probable idiopathic [...] significant difficulty with wearing off or dyskinesias. Start of visit 1:30pm, End of visit 2:10pm. More than 50% of the visit was devoted to counseling and coordination of care. Recommendations: 1. Continue stalevo at the same [...] address this first before adjusting his dose. Start of visit 3:30pm, End of visit 4:15pm. More than 50% of the visit was devoted to counseling and coordination of care. Recommendations: I discussed methods such as setting [...] precautions. Assessment & Plan (09/29/2018 3:50 PM GENERAL DOC): He has stage 2.5 parkinsonism, probable idiopathic [...] Encounters Date Type Department Care Team Description 08/14/2025 Telephone [facility] Medicine Movement Disorders [address] [place] [address] Stone Goncalves MD PhD from Last 3 Months Immunizations Immunization Administration Dates Next Due ZOSTER LIVE 05/19/2013 Social History Tobacco Use Types Packs/Day Years Used Date Smoking Tobacco: Never Smokeless Tobacco: Never Tobacco Cessation:Counseling Given: Not Answered Social Connection and Isolation Panel Answer Date Recorded In a typical week, how many times do you talk on the phone with family, friends, or neighbors? More than three times a week 03/27/2023 How often do you get togethe r with friends or relatives? More than three times a week 03/27/2023 How often do you attend [facility] or worship services? 1 to 4 times per year 03/27/2023 Do you belong to any clubs o r organizations such as alevism groups, unions, fraternal or athletic groups, or [...] No 03/27/2023 Personal Safety Answer Date Recorded Have you ever been in or are you currently in a harmful physical or emotional relationship or is someone making you feel afraid or unsafe? Denies 03/27/2023 Sex and Gender Information Value Date Recorded Sex Assigned at Not on file Legal Sex Male 3:14 AM GENERAL DOC Gender Identity Not on file Sexual Orientation Not on file Last Filed Vital Signs Vital Sign Reading Time Taken Comments Blood Pressure 79/46 05/11/2025 11:40 AM CDT Pulse 92 05/11/2025 11:40 AM CDT Temperature 36.1 C (97 F) 05/01/2023 1:23 PM CDT Respiratory Rate 20 04/20/2023 9:23 AM CDT Oxygen Saturation 94% 04/20/2023 9:23 AM CDT Inhaled Oxygen Concentration - - Weight 61.2 kg (135 lb) 05/11/2025 11:40 AM CDT Height 190.5 cm (6' 3) 05/11/2025 11:40 AM CDT Body Mass Index 16.87 05/11/2025 11:40 AM CDT Plan of Treatment Health Maintenance Due Date Last Done Comments Hepatitis B Screening 1963 Pneumococcal vaccine 65+ (1 of 1 - PCV) 1995 Well Visit 65+ 2010 Zoster Vaccine (2 of 3) 07/14/2013 05/19/2013 Fall Risk Assessment 04/02/2024 04/02/2023 Depression Screening 05/01/2024 05/01/2023 Influenza Vaccine (#1) 2025 DTaP/Tdap/Td Vaccine (2 - Td or Tdap) 10/11/202507/2016 Insurance [facility] [place] [id number] COMMERCIAL GENERIC [employer] MEDICARE PPO [address] [id number] [employer] MEDICARE PPO [employer] MEDIC[employer] PPO Advance Directives For more information, please contact: [phone] * Full Code (Latest Code Status on File) Date Activated Date Inactivated Comments 03/26/2023 10:27 PM 04/02/2023 8:01 PM Care Teams Sourcing Analyst Relationship Specialty Start Date End Date Eduardo Urena MD [address] [place] [address] PCP - General 12/07/13 Donavan Monroe MD [address] [place] [address] Consulting Physician Pulmonary Disease 04/02/23
[2025-08-21 17:35] LABS: Alanine Aminotransferase 10 U/L (6-50); Albumin Level 4.1 g/dL (3.5-5.1); Alkaline Phosphatase 109 U/L (38-126); Anion Gap 9 mmol/L (4-12); Aspartate Amino Transferase 40 U/L (17-59); Bilirubin,Total 0.6 mg/dL (0.2-1.3); Blood Urea Nitrogen 38 mg/dL (9-20); Calcium 9.3 mg/dL (8.4-10.2); Carbon Dioxide 26 mmol/L (22-30); Chloride 105 mmol/L (98-107); Estimated Glomerular Filt Rate 54; Glucose 113 mg/dL (65-110); Potassium 4.4 mmol/L (3.4-5.0); Sodium 140 mmol/L (137-145); Total Protein 7.8 g/dL (6.3-8.2)
== END 2025-08-21 16:43 | disposition home or self-care (01) ==
PROVIDERS: PCP Family Medicine; Visit Provider Physician Assistant Medical
DX: R05.9 Cough, unspecified (principal); R06.02 Shortness of breath; R41.0 Disorientation, unspecified; R91.8 Other nonspecific abnormal finding of lung field
CPT/HCPCS: 36415; 71046; 80053; 81001; 85025; 87086